=== PATIENT | male | born 1965 | race Caucasian/White ===

== ENCOUNTER 2021-02-03 10:11 | Outpatient (CLI) | payer BC, SELFPAY ==
--- NOTE | 2021-02-03 09:15 | DI.RAD_ITS ---
Exam(s) XR KNEE LT 1V XR STANDING ALIGNMENT XR KNEE RT 1V EXAM: XR STANDING ALIGNMENT and XR knee bilateral 1 V CLINICAL HISTORY: preop. TECHNIQUE: 2D digital imaging was performed. COMPARISON: No previous for comparison. FINDINGS: The hips are well maintained. In the right knee, there is mild narrowing of the medial femoral tibia l joint space. Mild periarticular spurring is seen in the medial femoral tibial joint and the patell ofemoral joint. There does appear to be a small right knee joint effusion. In the left knee, modera te joint space narrowing is seen in the medial femoral tibial joint. There is a small enthesophyte a t the superior patella. No joint effusion is seen on the left knee. The ankles are well maintained. The right lower extremity measures 102.6 cm. The left lower extremity measures 103 cm. IMPRESSION: Bilateral osteoarthritis of the knees. DATA REPOSITORY: RADIATION DOSE DELIVERED:
== END 2021-02-03 10:12 | disposition home or self-care (01) ==
LOC: DIORS 10:11
PROVIDERS: Visit Provider Physician Assistant Surgical
DX: M17.0 Bilateral primary osteoarthritis of knee (principal); M25.461 Effusion, right knee
CPT/HCPCS: 73560; 77073

== ENCOUNTER 2021-02-04 18:31 | Emergency (ER) | payer BC, SELFPAY ==
[2021-02-04] VITALS (46 sets, daily range): BP systolic 115–140; BP diastolic 78–100; PULSE 80–183; RESP 11–27; TEMP 37; O2SAT 92–100
--- NOTE | 2021-02-04 18:30 | RT.EKG_ITS ---
APPROVED REPORT Exam: Resting ECG Reason for Exam: chest pain Patient Location: E HR:175 bpm ECG Measurements Heart Rate 175 AXIS MI [id number] P 0 QRSd 116 QRS -35 QT 271 T 56 QTc 462 Conclusion Supraventricular tachycardia...V-rate>(220-age), QRSd<120 Nonspecific intraventricular conduction delay...QRSd >115mS, not LBBB/RBBB SVT. No STEMI. I have reviewed and interpreted ECG and agree with software generated interpretation.
--- NOTE | 2021-02-04 18:35 | ED.GENADUL_ITS ---
Discharge Plan Disposition Patient Disposition: HOME Condition: Stable Discharge Details Clinical Impression: SVT (supraventricular tachycardia) Primary Care Provider: None,None ED Provider: Guy Alvarez Meds and New Rx's Prescriptions: New metoprolol succinate 25 mg tablet extended release 24 hr 25 mg PO DAILY Qty: 30 RF: 0 Continued prasugrel 10 mg Tablet 10 mg PO DAILY RF: 0 aspirin 81 mg Tablet,Delayed Release (Dr/Ec) 81 mg PO DAILY RF: 0 pantoprazole 40 mg Tablet,Delayed Release (Dr/Ec) 40 mg PO DAILY RF: 0 Discharge Instructions Additional Instructions: Your case was discussed with cardiology at [facility] and your EKGs reviewed by them. It is not felt that you require admission at this time but that you will need follow-up with cardiology in the next 1 to 2 weeks. Please schedule this appointment with the configuration engineer your has established for you. Continue previous medication and start taking metoprolol to try to prevent further episodes of SVT. Return to ED for recurrent episodes that do not terminate relatively quickly, chest pain, shortness of breath, other concerns. Medical Decision Making <Marilynn Akers DO - Last Filed: 02/04/21 20:10> 1855 -- 55-year-old male with a history of coronary artery disease, coronary stent placement on prasugrel presents for chest pain with radiation down his right arm and dizziness since 2 PM today. Heart rate 170s on arrival. EKG consistent with SVT but no STEMI. Patient was given 1 dose of adenosine 6 mg IV x1 with heart rate decreased down to 150s but then back up to 170s. He converted to sinus rhythm with heart rate in the 100s after dose of adenosine 12 mg IV x1. Blood pressure remained stable throughout adenosine administration. Patient tolerated adenosine well. Screening labs on arrival. Troponin negative. Chest x-ray no obvious acute disease. As patient complained of chest pain for the past 4 hours with history of coronary artery disease, will plan for delta troponin and EKG. 1999 --Case endorsed to Dr. Alvarez to follow-up on repeat troponin and EKG and final disposition. Medical Records Medical records reviewed: Yes I reviewed the patient's medical records. Lab Data Lab results reviewed: Yes I reviewed the patient's lab results. Labs: Laboratory Tests Range/Units 02/04/21 02/04/21 18:40 18:40 WBC (4.4-10.8) 10^3/uL 11.21 H RBC (4.36-5.78) 10^6/uL 4.66 Hgb (13.5-17.5) g/dL 15.7 Hct (40.0-50.0) % 46.8 MCV (80-95) fL 100.4 H MCH (27.0-33.0) pg 33.7 H MCHC (32.0-36.0) % 33.5 RDW (11.8-14.1) % 13.4 Plt Count (130-400) 10^3/uL 229 MPV (8.0-11.0) fL 9.5 Immature Gran % 0.6 Neutrophils % 63.9 Lymphocytes % 24.6 Monocytes % 7.9 Eosinophils % 1.8 Basophils % 1.2 Nucleated RBC % % 0 Absolute Neutrophils (1.2-6.7) 10^3/uL 7.16 H Absolute Lymphocytes (1.2-3.4) 10^3/uL 2.76 Absolute Monocytes (0.1-0.8) 10^3/uL 0.89 H Absolute Eosinophils (0.0-0.7) 10^3/uL 0.20 Absolute Basophils (0.0-0.2) 10^3/uL 0.13 Sodium (136-145) mmol/L 139 Potassium (3.5-5.1) mmol/L 4.4 Chloride (98-107) mmol/L 100 Carbon Dioxide (21.0-32.0) mmol/L 31.5 Anion Gap (3-11) mmol/L 7.5 BUN (7-18) mg/dL 19 H Creatinine (0.70-1.30) mg/dL 1.6 H Estimated GFR/1.73 m2 (mL/min/1.73m2) 44.78 Glucose (74-106) mg/dL 138 H Calcium (8.5-10.1) mg/dL 9.9 Magnesium (1.8-2.4) mg/dL 2.0 Total Bilirubin (0.2-1.0) mg/dL 1.0 AST (15-37) U/L 81 H ALT (16-63) U/L 156 H Alkaline Phosphatase (46-116) U/L 83 Troponin I (<0.06) ng/mL < 0.05 Total Protein (6.4-8.2) g/dL 8.3 H Albumin (3.4-5.0) g/dL 4.0 ECG Data Attestation: I personally reviewed and interpreted this ECG (s) as follows: Interpretation: #1 -- rate of 175, SVT, no STEMI. #2 --Rate of 100, sinus, no STEMI. <Guy Alvarez MD - Last Filed: 02/05/21 01:14> Patient signed out to me pending repeat EKG and troponin as well as follow-up on TSH and D-dimer. He had presented earlier in the evening with prolonged SVT and associated chest pain shortness of breath. Please see Dr. Akers's note for initial presentation and management. Patient has had no recurrent symptoms while here. His D-dimer was negative. TSH slightly elevated but free T4 normal. Repeat EKG unchanged from EKG done earlier today once converted from SVT. Second troponin is elevated to 0.22 but is still considered negative. EKG was fax[facility] to [facility]. I spoke directly to cardiology regarding the patient. EKG were reviewed, patient history reviewed, laboratory studies reviewed. It was felt that the slight elevation in troponin was likely demand ischemia in NSTEMI. Patient was not felt to require admission or trending of enzymes. Was recommended to start on metoprolol. Will need follow-up with cardiology in 1 to 2 weeks. I discussed all this with the patient who reports that his has set him up both with primary care and with cardiology but he has not seen them yet. He understands need to be seen cardiology. We discussed Valsalva maneuvers but that if they do not work and he has persistent symptoms related to SVT or any further episodes of chest pain, shortness of breath he should return to ER. Lab Data Lab results reviewed: Yes I reviewed the patient's lab results. ECG Data Attestation: I personally reviewed and interpreted this ECG (s) as follows: Prior ECG tracings: available for review Interpretation: see EKG HPI <Marilynn Akers DO - Last Filed: 02/04/21 20:10> General Mode of arrival: ambulatory . Date/Time Provider Initiated Documentation: 02/04/21 18:32 . Limitations to Documentation: no limitations . Information obtained by: patient . HPI Narrative: Patient is a 55-year-old male with history of coronary artery disease with coronary stent placement in July 2020 presents for chest pain with radiation down his right arm and dizziness since 2 PM today. Patient states he was sitting in his car when his symptoms started. He states the pain has been constant since onset. He denies any fever, cough, palpitations, shortness of breath, nausea or vomiting. Patient denies any known history of SVT. He states he does drink excessive beer daily but denies any alcohol or drug use today. He also denies any recent illness or new xlwy-tso-[id number] medication use. Related Data Home Medications Medication Instructions Recorded Confirmed aspirin 81 mg PO DAILY 02/04/21 02/04/21 pantoprazole 40 mg PO DAILY 02/04/21 02/04/21 prasugrel 10 mg PO DAILY 02/04/21 02/04/21 metoprolol succinate 25 mg PO DAILY #30 tab 02/05/21 Previous Rx's Medication Instructions Recorded metoprolol succinate 25 mg PO DAILY #30 tab 02/05/21 Allergies Allergy/AdvReac Type Severity Reaction Status Date / Time No Known Allergies Allergy Verified 02/03/21 09:09 Review of Systems <Marilynn Akers DO - Last Filed: 02/04/21 20:10> All systems reviewed & are unremarkable except as noted in HPI and below Constitutional Constitutional: Reports as per HPI, Denies chills and Denies fever(s) Eyes Eyes: Denies blurry vision ENT Ears, Nose, Mouth, and Throat: Reports dizziness, Denies sore throat and Denies throat swelling Cardiovascular Cardiovascular: Reports chest pain and Denies dyspnea Respiratory Respiratory: Denies cough and Denies dyspnea Gastrointestinal Gastrointestinal: Denies abdominal pain, Denies diarrhea and Denies vomiting Genitourinary Genitourinary: Denies hematuria and Denies dysuria Musculoskeletal Musculoskeletal: Denies back pain and Denies numbness Integumentary/Breasts Skin/Breast: Denies lesions and Denies rash Neurologic Neurologic: Reports dizziness, Denies localized weakness and Denies numbness Allergic/Immunologic Allergic/Immunologic: Denies throat swelling PFSH <Marilynn Akers DO - Last Filed: 02/04/21 20:10> Medical History (Updated 02/04/21 @ 20:10 by Marilynn Akers DO) Coronary artery disease Surgical History (Updated 02/04/21 @ 18:38 by Marilynn Akers DO) History of coronary artery stent placement RCA -- 07/2020 Social History Smoking/Tobacco Use Status: Never Smoking risk assessment performed?: Yes Alcohol Intake: current Alcohol Intake frequency: 0-2 drinks per day Alcohol type: beer and hard liquor Substance use type: does not use Do you feel safe at home: Yes Do you feel safe in your relationship?: Yes Exam <Marilynn Akers DO - Last Filed: 02/04/21 20:10> Const General: cooperative, healthy appearing and no acute distress HENMT Head: normal to inspection Face and sinus: normal facial exam Eyes General: appearance normal, both eyes and all related structures EOM: EOM intact bilaterally Neck Neck: normal visual inspection and No submandibular swelling Lymphatic: no lymphadenopathy noted Chest Chest: normal inspection of the chest and no tenderness Resp Effort & Inspection: normal respiratory effort and able to speak in complete sentences Auscultation: clear to auscultation bilaterally Cardio Rate: tachycardic Rhythm: regular rhythm GI Inspection: normal to inspection Palpation: soft, not firm, not rigid and nontender Auscultation: normal bowel sounds Skin General skin exam: no rashes or lesions noted Neuro General: patient alert, patient awake and patient oriented x3 Cognition: normal cognition Speech: speech normal Motor: muscle tone normal throughout Sensory Exam: no sensory deficits noted Extrem General: normal to inspection, full ROM, capillary refill normal, no calf tenderness bilaterally and no edema Psych Appearance: grossly normal Mental Status: mental status grossly normal Speech and Movement: speech and movement normal Affect: normal affect Sign Out <Marilynn Akers DO - Last Filed: 02/04/21 20:10> Sign Out Data: Sign Out Comment: SVT on EKG on arrival. This converted to sinus after second dose of adenosine. Troponin negative. Follow-up on d-dimer, tsh, repeat troponin and repeat EKG. If patient remains improved, and work-up negative, can likely discharge home with plan for follow-up with PCP and cardiology. Last updated by Marilynn Akers DO at 02/04/21 20:21
--- NOTE | 2021-02-04 18:45 | RT.EKG_ITS ---
APPROVED REPORT Exam: Resting ECG Reason for Exam: chest pain Patient Location: E HR:100 bpm ECG Measurements Heart Rate 100 AXIS LA 164 P 56 QRSd 97 QRS -17 QT 340 T 35 QTc 440 Conclusion Sinus tachycardia...rate> 99. Sinus. No STEMI. I have reviewed and interpreted ECG and agree with software generated interpretation.
--- NOTE | 2021-02-04 18:45 | DI.RAD_ITS ---
Exam(s) XR PORTABLE CHEST AP EXAM: XR PORTABLE CHEST AP CLINICAL HISTORY: svt, r/o acute disease. TECHNIQUE: 2D digital imaging was performed. COMPARISON: No exams were available for comparison FINDINGS: The chest leads in place and a left-sided cardiac pad. The mediastinum is not widened. Heart size is normal. No pulmonary infiltrates nor pleural effusions. No pulmonary edema. No pneum othorax. IMPRESSION: No acute pulmonary findings on this single AP portable view of the chest.Heart size normal. Chest leads and chest pads in place. DATA REPOSITORY: RADIATION DOSE DELIVERED: All CT scans at this facility use at least one of these dose optimization techniques: automated exposure control; mA and/or kV adjustment per patient size (includes targeted e xams where dose is matched to clinical indication); or iterative reconstruction.
[2021-02-04 18:47] LABS: Abs Immature Grans 0.07 10^3/uL (0.0-0.06); Absolute Basophil Count 0.13 10^3/uL (0.0-0.2); Absolute Lymphocyte Count 2.76 10^3/uL (1.2-3.4); Absolute Monocyte Count 0.89 10^3/uL (0.1-0.8); Absolute Neutrophil Count 7.16 10^3/uL (1.2-6.7); Basophils % 1.2; Eosinophils % 1.8; HCT 46.8 % (40.0-50.0); HGB 15.7 g/dL (13.5-17.5); Immature Grans % 0.6; Lymphocytes % 24.6; MCH 33.7 pg (27.0-33.0); MCHC 33.5 % (32.0-36.0); MCV 100.4 fL (80-95); MPV 9.5 fL (8.0-11.0); Monocytes % 7.9; Neutrophils % 63.9; Nucleated RBC 0 %; Platelet Count 229 10^3/uL (130-400); RBC 4.66 10^6/uL (4.36-5.78); RDW 13.4 % (11.8-14.1); RDW-SD 49.3 fL; WBC 11.21 10^3/uL (4.4-10.8)
[2021-02-04 19:06] LABS: ALT 156 U/L (16-63); AST 81 U/L (15-37); Alkaline Phosphatase 83 U/L (46-116); Anion Gap 7.5 mmol/L (3-11); BUN 19 mg/dL (7-18); CO2 31.5 mmol/L (21.0-32.0); CREATININE 1.6 mg/dL (0.70-1.30); Calcium 9.9 mg/dL (8.5-10.1); Chloride 100 mmol/L (98-107); Estimated GFR 44.78 (mL/min/1.73m2); Glucose 138 mg/dL (74-106); Potassium 4.4 mmol/L (3.5-5.1); Sodium 139 mmol/L (136-145); Total Protein 8.3 g/dL (6.4-8.2); Troponin I < 0.05 ng/mL (<0.06)
--- NOTE | 2021-02-04 19:30 | RT.EKG_ITS ---
APPROVED REPORT Exam: Resting ECG Reason for Exam: chest pain Patient Location: E HR:80 bpm ECG Measurements Heart Rate 80 AXIS OK 157 P 50 QRSd 102 QRS -15 QT 380 T 7 QTc 439 Conclusion Sinus rhythm...normal P axis, V-rate 60- [address]-T changes inferior There are no significant changes compared to prior EKG performed on 02/04/2021 at 18:59.
--- NOTE | 2021-02-04 21:06 | DI.VRAD_ITS ---
PROCEDURE INFORMATION: Exam: XR Chest Exam date and time: 02/04/2021 6:57 PM Age: 55 years old Clinical indication: Other: Svt, R/O acute disease TECHNIQUE: Imaging protocol: XR of the chest. Views: 1 view. COMPARISON: No relevant prior studies available. FINDINGS: Lungs: Unremarkable. No consolidation. Pleural spaces: Unremarkable. No pleural effusion. No pneumothorax. Heart/Mediastinum: Unremarkable. No cardiomegaly. Bones/joints: Unremarkable. Other findings: Equipment overlies the chest. IMPRESSION: No acute cardiopulmonary disease Dictated and Authenticated by: Kj Conde MD. Ordering:MURALI Subramanian MD
--- NOTE | 2021-02-04 21:57 | NUR.NOTE ---
Lab called to process additional ordersNursing Note:
[2021-02-04 22:27] LABS: TSH (W/Ref FT4) 5.87 uIU/mL (0.36-3.74)
[2021-02-04 22:37] LABS: D-Dimer 337 ng/mlFEU (<500)
[2021-02-04 22:44] LABS: FREE T4 0.93 ng/dL (0.76-1.46)
--- NOTE | 2021-02-04 22:52 | NUR.NOTE ---
Critical troponin result called by lab; 0.22. notified.Nursing Note:
[2021-02-04 22:53] LABS: Troponin I 0.22 ng/mL (<0.06)
[2021-02-05] VITALS (10 sets, daily range): BP systolic 136–149; BP diastolic 83–94; PULSE 80–86; RESP 10–20; O2SAT 96–98
== END 2021-02-05 00:59 | disposition home or self-care (01) ==
PROVIDERS: Physician Assistant; Emergency Provider Emergency Medicine
DX: I47.1 Supraventricular tachycardia (principal); R42 Dizziness and giddiness; R06.02 Shortness of breath; I25.10 Atherosclerotic heart disease of native coronary artery without angina pectoris; Z95.5 Presence of coronary angioplasty implant and graft
CPT/HCPCS: 36415; 80053; 93005; 96374; 99285; 71045; 83735; 84439; 84443; 84484; 85025; 85379; 93010

== ENCOUNTER 2021-02-23 13:42 | Outpatient (CLI) | payer BC, SELFPAY ==
--- NOTE | 2021-02-23 13:30 | RT.EKG_ITS ---
APPROVED REPORT Exam: Resting ECG Reason for Exam: cad Patient Location: O HR:66 bpm ECG Measurements Heart Rate 66 AXIS NJ 149 P 35 QRSd 127 QRS -24 QT 378 T 21 QTc 396 Conclusion Sinus rhythm...normal P axis, V-rate 50- 99 Nonspecific intraventricular conduction delay...QRSd >115mS, not LBBB/RBBB
== END 2021-02-23 13:43 | disposition home or self-care (01) ==
LOC: DI.CARD 13:42
PROVIDERS: Visit Provider Internal Medicine Cardiovascular Disease
DX: I25.10 Atherosclerotic heart disease of native coronary artery without angina pectoris (principal)
CPT/HCPCS: 93010

== ENCOUNTER 2021-04-07 00:37 | Outpatient (CLI) | payer BC, SELFPAY ==
--- NOTE | 2021-04-07 | DI.MRI_ITS ---
Exam(s) MR LUMBAR SPINE WO EXAM: MR LUMBAR SPINE WO CLINICAL HISTORY: DEGENERATIVE DISC DISEASE,M51.36,WORSENING LOW BACK PAIN. TECHNIQUE: Multiplanar multisequence MRI of the Lumbar spine was performed. COMPARISON: CR,XR XR PORTABLE CHEST AP from 02/04/2021 FINDINGS: Bones: The last intervertebral disc space is designated the L5/S1 level for the numbering purpose of this examination. The vertebral body heights are well maintained. Schmorl's nodes at multiple level s. Degenerative signal changes are seen in the endplates. No suspicious lesions. Cord: The conus tip ends at the T12 level. It is of normal size and signal intensity. T12-L1: No disc herniations or bulges are present. No central spinal canal or neural foraminal stenos is. L1-2: No disc herniations or bulges are present. No central spinal canal or neural foraminal stenosis . L2-3: Qccb-nq-bhjluhxy loss of disc height, greater on the left side. Small endplate osteophytes and broad-based disc bulging, eccentric toward the left. This causes severe left neural foraminal narro wing combination with mild facet joint degenerative changes. No significant central canal stenosis. L3-4: Broad-based disc bulging and small endplate osteophytes, slightly eccentric toward the left. M oderate neural foraminal narrowing. Mild facet joint degenerative changes. No significant central c anal stenosis. L4-5: Mild loss of disc height eccentric toward the right. Endplate osteophytes and broad-based disc bulging. Severe bilateral neural foraminal narrowing, greater on the right. Hrzl-yw-pbbkpjpe facet degenerative changes. Rnzy-kr-ntzghtrf central canal stenosis. L5-S1: Moderate to severe loss disc height. Small endplate osteophytes. Broad-based central disc bu lging. Apparent impingement on bilateral S1 nerve roots. Mild facet degenerative changes. Severe b ilateral neural foraminal narrowing. Soft tissues: The visualized SI joints and sacrum are well maintained. The paraspinal soft tissues ar e unremarkable. IMPRESSION: Multilevel degenerative disc changes and facet degenerative changes causing severe neural foraminal n arrowing and mild central canal stenosis, as described above. Central disc bulging at L5-S1 appears to impinge on both S1 nerve roots. DATA REPOSITORY:
== END 2021-04-07 00:57 ==
PROVIDERS: Visit Provider Family Medicine
DX: M47.816 Spondylosis without myelopathy or radiculopathy, lumbar region; M48.061 Spinal stenosis, lumbar region without neurogenic claudication; M51.27 Other intervertebral disc displacement, lumbosacral region
CPT/HCPCS: 72148

== ENCOUNTER 2021-04-10 02:01 | Outpatient (CLI) | payer BC, SELFPAY ==
[2021-04-10 10:59] LABS: Source Nasal/Nares
[2021-04-10 13:34] LABS: COVID-19 PCR Negative (Negative)
== END 2021-04-10 02:02 | disposition home or self-care (01) ==
LOC: LBO 02:02
PROVIDERS: Visit Provider Student in an Organized Health Care Education/Training Program
DX: Z20.822 Contact with and (suspected) exposure to COVID-19 (principal)
CPT/HCPCS: 87635

== ENCOUNTER 2021-04-10 02:44 | Outpatient (CLI) | payer BC, SELFPAY ==
[2021-04-10 09:36] LABS: HCT 45.5 % (40.0-50.0); HGB 15.5 g/dL (13.5-17.5); MCH 34.4 pg (27.0-33.0); MCHC 34.1 % (32.0-36.0); MCV 100.9 fL (80-95); MPV 9.8 fL (8.0-11.0); Platelet Count 197 10^3/uL (130-400); RBC 4.51 10^6/uL (4.36-5.78); RDW 12.6 % (11.8-14.1); RDW-SD 47.6 fL; WBC 5.36 10^3/uL (4.4-10.8)
[2021-04-10 10:19] LABS: Anion Gap 6.4 mmol/L (3-11); BUN 13 mg/dL (7-18); CO2 30.6 mmol/L (21.0-32.0); CREATININE 0.9 mg/dL (0.70-1.30); Chloride 101 mmol/L (98-107); Glucose 105 mg/dL (74-106); Sodium 138 mmol/L (136-145)
== END 2021-04-10 02:45 | disposition home or self-care (01) ==
LOC: LBO 02:44
PROVIDERS: Visit Provider Student in an Organized Health Care Education/Training Program
DX: M17.11 Unilateral primary osteoarthritis, right knee (principal); M17.12 Unilateral primary osteoarthritis, left knee; Z01.818 Encounter for other preprocedural examination
CPT/HCPCS: 36415; 80048; 85027

== ENCOUNTER 2021-04-12 07:37 | Outpatient (CLI) | payer BC, SELFPAY ==
--- NOTE | 2021-04-12 09:15 | RT.EKG_ITS ---
APPROVED REPORT Exam: Resting ECG Reason for Exam: PRE OP Patient Location: O HR:64 bpm ECG Measurements Heart Rate 64 AXIS HI 160 P 45 QRSd 115 QRS -20 QT 505 T -48 QTc 516 Conclusion Sinus rhythm...normal P axis, V-rate 60- 99 Artifact Incomplete right bundle branch block
== END 2021-04-12 07:38 | disposition home or self-care (01) ==
LOC: RT 07:49
PROVIDERS: Visit Provider Physician Assistant
DX: Z01.810 Encounter for preprocedural cardiovascular examination (principal); I45.19 Other right bundle-branch block
CPT/HCPCS: 93005; 93010

== ENCOUNTER 2021-04-12 09:07 | Observation (INO) | payer BC, SELFPAY ==
[2021-04-12] VITALS (12 sets, daily range): BP systolic 88–157; BP diastolic 56–101; PULSE 22–76; RESP 13–21; TEMP 36.2–36.6; TEMPC 36; O2SAT 95–100; BMI 27.9
--- NOTE | 2021-04-12 09:27 | W.PM.DS.N ---
Documented by User: Loretta Haquexon 04/12/21 09:32 DS: Diagnosis Discharge Diagnosis (1) Osteoarthritis of left knee: Status: Chronic (2) Osteoarthritis of right knee: Status: Chronic Discharge Plan Disposition Patient Disposition: HOME Condition: Good Discharge Details Reason For Visit: Bilateral knee DJD Admit Date/Time: 04/12/21 09:07 Admit Provider: Mendel Starr Attending Provider: Mendel Starr Primary Care Provider: None,None Hospital Course Hospital Course: Patient was admitted to the medical/surgical floor following the procedure. The surgery was tolerated well without any notable medical, surgical, or anesthetic complications. Mobilization began postoperatively. He was voiding spontaneously. Vitals were stable. Physical therapy worked with the patient and was cleared for discharge home. No acute medical issues. Pain was controlled on oral regimen. Home Meds and New Rx's Prescriptions: New celecoxib [Celebrex] 200 mg capsule 200 mg PO BID Qty: 30 RF: 0 acetaminophen 500 mg tablet 1,000 mg PO Q8H PRN Qty: 90 RF: 0 docusate sodium [Colace] 100 mg capsule 100 mg PO BID Qty: 30 RF: 0 gabapentin 300 mg capsule 300 mg PO QHS Qty: 14 RF: 0 oxycodone 5 mg tablet 5 mg PO Q4H PRN (Reason: severe post-operative pain) Qty: 18 RF: 0 Continued metoprolol succinate 25 mg tablet extended release 24 hr 50 mg PO DAILY RF: 0 amlodipine 5 mg tablet 5 mg PO DAILY RF: 0 clopidogrel 75 mg tablet 75 mg PO DAILY Qty: 90 RF: 1 sildenafil 50 mg tablet 50 mg PO DAILY RF: 0 pantoprazole 40 mg Tablet,Delayed Release (Dr/Ec) 40 mg PO DAILY Qty: 30 RF: 2 aspirin 81 mg Tablet,Delayed Release (Dr/Ec) 81 mg PO DAILY RF: 0 Discharge Instructions Additional Instructions: Total Knee Discharge Instructions Activity: The most important activity is to walk. You should try to take short walks a few times a day. It is important that when resting you work on keeping the knee straight. Avoid putting a pillow behind the knee as this will encourage flexion. Work on range of motion exercises as provided by Physical Therapy. If you have the [employer] bike coming, this will be your primary tool for exercise after the knee replacement. You should use it and follow the directions for the knee. Utilize the other exercises sparingly based on your symptoms. - Start outpatient physical therapy within 2 weeks. - You should wear the ROMERO hose on both legs for 2 weeks. You may remove these at night. You may also use any compression sock in place of the ROMERO hose. - Utilize [employer] to review exercises, see videos on exercises and obtain basic information pertaining to your surgery and your recovery. Dressing: Remove the Slick wrap by 2 days after your surgery and put on the ROMERO stocking given to you from the hospital. Keep the surgical dressing (underneath the SLICK wrap) in place for at least one week. After the first week it may be removed and replaced with light gauze and tape or nothing. The wound and dressing may get wet after 3 days but avoid soaking the dressing or otherwise it will need to be changed. Many people prefer covering the dressing with cling wrap (saran wrap) to minimize it from getting soaked. If it gets wet, just pat dry. If it starts to peel off then it will need to be changed. Medications: - You should take Tylenol and anti-inflammatory Celebrex as your primary pain control medications. If the Celebrex is too expensive or not covered, please call the office for another alternative (Advil/Ibuprofen or Naproxen/Aleve) - You have been prescribed a stronger pain medication Oxycodone for breakthrough pain, take as needed as prescribed. - You normally take pantoprozole - will continue with this medication to help reduce stomach acid and reflux. - You have been prescribed Gabapentin to take at night for restlessness and nerve pain. - You will resume your normal anticoagulation of Aspirin 81 mg daily as well as Clopidogrel 75 mg daily as recommended by your linen supply load builder. - If you have constipation you should take Colace (which has been prescribed) or Miralax (which you may purchase [id number]). It takes most people 3-4 days to have a bowel movement. Follow-up: 2 weeks If you have any acute concerns or questions, please do not hesitate to contact the office at [phone]. You may contact Dr. Starr with any questions after hours through the hospital at [phone] or on his cell phone at [phone]. Referrals: Mendel Starr MD [ [facility]FF [facility]YSICIAN] - Activity:: Activity as Tolerated Equipment/Supplies:: Walker Diet:: As Tolerated Discharge Orders Discharge Orders: Discharge Order (Routine); Ordered 04/12/21 Ordered By: Mendel Starr DS: Data Vitals/I&O Vitals and I&O: Vital Signs Respiratory Effort 04/11/21 08:16 Intake & Output 04/11/21 04/11/21 04/12/21 11:59 23:59 11:59 Weight 94.801 kg [facility] Active Problem List Osteoarthritis of left knee (Chronic) Osteoarthritis of right knee (Chronic) SVT (supraventricular tachycardia) (Chronic) Hypertension (Chronic) Medical History Atherosclerotic heart disease of [place] coronary artery without angina pectoris Coronary artery disease PCI with FÉLIX to RCA 07/19/2020 [facility] Erectile dysfunction Family history of ischemic heart disease GERD (gastroesophageal reflux disease) Shortness of breath Surgical History History of coronary artery stent placement RCA -- 07/19/2020 History of heart artery stent 07/2020 Hx of elbow surgery Right lateral epicondyle debridement 2009 Family History Mother Scleroderma Maternal Grandfather Myocardial infarction Uncle Myocardial infarction Uncle Myocardial infarction Social History Smoking/Tobacco Use Status: Never Smoking risk assessment performed?: Yes Alcohol Intake: current Alcohol Intake frequency: 0-2 drinks per day Alcohol type: beer and hard liquor Drug use: Never Substance use type: does not use Household members: spouse current occupation: travels for work to [place] [employer] Current gender identity: male Do you feel safe at home: Yes Do you feel safe in your relationship?: Yes Documented by User: Mendel Starr MD 04/12/21 16:01 Date of service: 04/12/21 Time of Service: 16:00 Discharge Plan Disposition Patient Disposition: HOME Condition: Good Discharge Details Reason For Visit: Bilateral knee DJD Admit Date/Time: 04/12/21 09:07 Admit Provider: Mendel Starr Attending Provider: Mendel Starr Primary Care Provider: None,None Hospital Course Hospital Course: Patient was admitted to the medical/surgical floor following the procedure. The surgery was tolerated well without any notable medical, surgical, or anesthetic complications. Mobilization began postoperatively. He was voiding spontaneously. Vitals were stable. Physical therapy worked with the patient and was cleared for discharge home. No acute medical issues. Pain was controlled on oral regimen. Home Meds and New Rx's Prescriptions: New celecoxib [Celebrex] 200 mg capsule 200 mg PO BID Qty: 30 RF: 0 acetaminophen 500 mg tablet 1,000 mg PO Q8H PRN Qty: 90 RF: 0 docusate sodium [Colace] 100 mg capsule 100 mg PO BID Qty: 30 RF: 0 gabapentin 300 mg capsule 300 mg PO QHS Qty: 14 RF: 0 oxycodone 5 mg tablet 5 mg PO Q4H PRN (Reason: severe post-operative pain) Qty: 18 RF: 0 Continued metoprolol succinate 25 mg tablet extended release 24 hr 50 mg PO DAILY RF: 0 amlodipine 5 mg tablet 5 mg PO DAILY RF: 0 clopidogrel 75 mg tablet 75 mg PO DAILY Qty: 90 RF: 1 sildenafil 50 mg tablet 50 mg PO DAILY RF: 0 pantoprazole 40 mg Tablet,Delayed Release (Dr/Ec) 40 mg PO DAILY Qty: 30 RF: 2 aspirin 81 mg Tablet,Delayed Release (Dr/Ec) 81 mg PO DAILY RF: 0 Discharge Instructions Additional Instructions: Total Knee Discharge Instructions Activity: The most important activity is to walk. You should try to take short walks a few times a day. It is important that when resting you work on keeping the knee straight. Avoid putting a pillow behind the knee as this will encourage flexion. Work on range of motion exercises as provided by Physical Therapy. If you have the [employer] bike coming, this will be your primary tool for exercise after the knee replacement. You should use it and follow the directions for the knee. Utilize the other exercises sparingly based on your symptoms. - Start outpatient physical therapy within 2 weeks. - You should wear the ROMERO hose on both legs for 2 weeks. You may remove these at night. You may also use any compression sock in place of the ROMERO hose. - Utilize [employer] to review exercises, see videos on exercises and obtain basic information pertaining to your surgery and your recovery. Dressing: Remove the Slick wrap by 2 days after your surgery and put on the ROMERO stocking given to you from the hospital. Keep the surgical dressing (underneath the SLICK wrap) in place for at least one week. After the first week it may be removed and replaced with light gauze and tape or nothing. The wound and dressing may get wet after 3 days but avoid soaking the dressing or otherwise it will need to be changed. Many people prefer covering the dressing with cling wrap (saran wrap) to minimize it from getting soaked. If it gets wet, just pat dry. If it starts to peel off then it will need to be changed. Medications: - You should take Tylenol and anti-inflammatory Celebrex as your primary pain control medications. If the Celebrex is too expensive or not covered, please call the office for another alternative (Advil/Ibuprofen or Naproxen/Aleve) - You have been prescribed a stronger pain medication Oxycodone for breakthrough pain, take as needed as prescribed. - You normally take pantoprozole - will continue with this medication to help reduce stomach acid and reflux. - You have been prescribed Gabapentin to take at night for restlessness and nerve pain. - You will resume your normal anticoagulation of Aspirin 81 mg daily as well as Clopidogrel 75 mg daily as recommended by your linen supply load builder. - If you have constipation you should take Colace (which has been prescribed) or Miralax (which you may purchase [id number]). It takes most people 3-4 days to have a bowel movement. Follow-up: 2 weeks If you have any acute concerns or questions, please do not hesitate to contact the office at [phone]. You may contact Dr. Starr with any questions after hours through the hospital at [phone] or on his cell phone at [phone]. Referrals: Mendel Starr MD [ [facility] ST[facility]FF PHYSICIAN] - Activity:: Activity as Tolerated Equipment/Supplies:: Walker Diet:: As Tolerated Discharge Orders Discharge Orders: Discharge Order (Routine); Ordered 04/12/21 Ordered By: Mendel Starr DS: Summary Time Spent with Patient providing and/or coordinating discharge services: Less than 30 minutes Status at Discharge Functional status at discharge: uses cane/walker Overall status at discharge: patient is progressing back to baseline Mental Status: mental status grossly normal Speech and Movement: speech and movement normal Mood: congruent mood Affect: normal affect Exam Psych Mental Status: mental status grossly normal Speech and Movement: speech and movement normal Mood: congruent mood Affect: normal affect [facility] Active Problem List Osteoarthritis of left knee (Chronic) Osteoarthritis of right knee (Chronic) SVT (supraventricular tachycardia) (Chronic) Hypertension (Chronic) Medical History Atherosclerotic heart disease of [place] coronary artery without angina pectoris Coronary artery disease PCI with FÉLIX to RCA 07/19/2020 [facility] Erectile dysfunction Family history of ischemic heart disease GERD (gastroesophageal reflux disease) Shortness of breath Surgical History History of coronary artery stent placement RCA -- 07/19/2020 History of heart artery stent 07/2020 Hx of elbow surgery Right lateral epicondyle debridement 2009 Family History Mother Scleroderma Maternal Grandfather Myocardial infarction Uncle Myocardial infarction Uncle Myocardial infarction Social History Smoking/Tobacco Use Status: Never Smoking risk assessment performed?: Yes Alcohol Intake: current Alcohol Intake frequency: 0-2 drinks per day Alcohol type: beer and hard liquor Drug use: Never Substance use type: does not use Household members: spouse current occupation: travels for work to [employer] Current gender identity: male Do you feel safe at home: Yes Do you feel safe in your relationship?: Yes
[2021-04-12] MEDS: Celecoxib 200 MG CAP 400 MG PO (09:52)
[2021-04-12] MEDS: Acetaminophen 500 MG TAB 1000 MG PO (09:52)
[2021-04-12] MEDS: Gabapentin 300 MG CAP PO (09:53)
[2021-04-12] MEDS: Lactated Ringers 1,000 ML 80 ML IV (09:55)
--- NOTE | 2021-04-12 10:19 | ANES.PREOP_ITS ---
General Info Date of Service Date Performed: 04/12/21 Height: 6 ft Weight: 93.4 kg Body Mass Index (BMI): 27.9 Surgical Procedure: Operation Date: 04/12/21 13:05 Proposed Procedures Side Surgeon p Knee Total Arthroplasty Bilateral Bilateral Mendel Starr MD Meds Allergies and Home Medications Allergies Allergy/AdvReac Type Severity Reaction Status Date / Time No Known Allergies Allergy Verified 04/12/21 09:49 Home Medication Medication Instructions Recorded aspirin 81 mg PO DAILY 02/04/21 pantoprazole 40 mg PO DAILY 02/04/21 sildenafil 50 mg tablet 50 mg PO DAILY 02/17/21 amlodipine 5 mg tablet 5 mg PO DAILY 02/23/21 clopidogrel 75 mg tablet 75 mg PO DAILY #90 tab 02/23/21 metoprolol succinate 25 mg 50 mg PO DAILY tab 04/04/21 tablet,extended release 24 hr acetaminophen 1,000 mg PO Q8H PRN #90 tab 04/12/21 celecoxib [Celebrex] 200 mg PO BID #30 cap 04/12/21 docusate sodium [Colace] 100 mg PO BID #30 cap 04/12/21 gabapentin 300 mg PO QHS #14 cap 04/12/21 oxycodone 5 mg PO Q4H PRN #18 tab 04/12/21 Current Visit Medications: Current Medications Generic Name Dose Route Start Last Admin Trade Name Freq PRN Reason Stop Dose Admin Acetaminophen 1,000 mg 04/12/21 06:00 04/12/21 09:52 Acetaminophen 500 Mg Tab PO 1,000 mg PREOP MICHAELA Administration Acetaminophen 1,000 mg 04/12/21 14:00 Acetaminophen 500 Mg Tab PO TID MICHAELA Celecoxib 400 mg 04/12/21 06:00 04/12/21 09:52 Celecoxib 200 Mg Cap PO 400 mg PREOP MICHAELA Administration Celecoxib 200 mg 04/12/21 20:00 Celecoxib 200 Mg Cap PO BID MICHAELA Clopidogrel Bisulfate 75 mg 04/13/21 08:30 Clopidogrel 75 Mg Tab PO DAILY MICHAELA Docusate Sodium 100 mg 04/12/21 09:22 Docusate Sodium 100 Mg Cap PO BID PRN PRN Constipation Gabapentin 300 mg 04/12/21 06:00 04/12/21 09:53 Gabapentin 300 Mg Cap PO 300 mg PREOP MICHAELA Administration Gabapentin 300 mg 04/12/21 22:00 Gabapentin 300 Mg Cap PO HS MICHAELA Hydromorphone HCl 0.5 mg 04/12/21 09:22 Hydromorphone 2 Mg/Ml Vial IVP Q2H PRN PRN Tranexamic Acid 1,000 mg/ 60 mls @ 360 mls/hr 04/12/21 06:00 Sodium Chloride IVPB 04/12/21 23:59 PREOP MICHAELA Tranexamic Acid 1,000 mg/ 60 mls @ 360 mls/hr 04/12/21 06:00 Sodium Chloride IVPB 04/12/21 23:59 DIRECTED MICHAELA Ringer's Solution 1,000 mls @ 80 mls/hr 04/12/21 06:00 04/12/21 09:55 IV 05/11/21 23:59 80 mls/hr INFUSION MICHAELA Administration Cefazolin Sodium/Dextrose 2 gm in 50 mls @ 100 mls/hr 04/12/21 06:00 Ancef Duplex IVPB 05/11/21 23:59 PREOP MICHAELA Cefazolin Sodium/Dextrose 1 gm in 50 mls @ 100 mls/hr 04/12/21 12:00 Ancef Duplex IVPB 04/13/21 04:29 Q8H MICHAELA IV Miscellaneous Supplies 1 each 04/12/21 06:00 Iv Access IV 05/11/21 23:59 DIRECTED MICHAELA Oxycodone HCl 0 mg 04/12/21 09:22 Oxycodone 5 Mg Tab PO Q3H PRN PRN Pain Pantoprazole Sodium 40 mg 04/13/21 08:00 Pantoprazole 40 Mg Tabcr PO DAILY@0730 MICHAELA Sodium Chloride 0 ml 04/12/21 06:00 Normal Saline Flush 10 Ml Syr IV 05/11/21 23:59 PRN PRN Sodium Chloride 0 ml 04/12/21 06:00 Normal Saline 10 Ml Vial IJ 05/11/21 23:59 DIRECTED PRN Sterile Water 0 ml 04/12/21 06:00 Water,Injection,Sterile 10 Ml Vial IJ 05/11/21 23:59 DIRECTED PRN PFSH Active Problems Active Problems: Problem Status Onset Code Osteoarthritis of left knee M17.12 Osteoarthritis of right knee M17.11 SVT (supraventricular tachycardia) I47.1 Hypertension I10 Medical History Active Problem List Osteoarthritis of left knee (Chronic) Osteoarthritis of right knee (Chronic) SVT (supraventricular tachycardia) (Chronic) Hypertension (Chronic) Medical History Atherosclerotic heart disease of [place] coronary artery without angina pectoris Coronary artery disease PCI with FÉLIX to RCA 07/19/2020 [facility] Erectile dysfunction Family history of ischemic heart disease GERD (gastroesophageal reflux disease) Shortness of breath Surgical History Surgical History History of coronary artery stent placement RCA -- 07/19/2020 History of heart artery stent 07/2020 Hx of elbow surgery Right lateral epicondyle debridement 2009 Tobacco Smoking/Tobacco Use Status: Never Alcohol Alcohol Intake: current Alcohol intake frequency: 0-2 drinks per day Alcohol type: beer and hard liquor Substance Use Substance use: Never Substance use type: does not use Vital Signs and Lab Results Vital Signs Most Recent Vital Signs in EMR: Most Recent Vital Signs Temp Pulse Resp BP Pulse Ox 36.6 C 66 18 146/98 H 100 04/12/21 09:24 04/12/21 09:24 04/12/21 09:24 04/12/21 09:24 04/12/21 09:24 Lab Results Blood Type / Crossmatch: No Data to Display Complete Blood Count: White Blood Count 5.36 10^3/uL (4.4-10.8) 04/10/21 09:24 04/10/21 Red Blood Count 4.51 10^6/uL (4.36-5.78) 04/10/21 09:24 04/10/21 Hemoglobin 15.5 g/dL (13.5-17.5) 04/10/21 09:24 04/10/21 Hematocrit 45.5 % (40.0-50.0) 04/10/21 09:24 04/10/21 Platelet Count 197 10^3/uL (130-400) 04/10/21 09:24 04/10/21 Complete Metabolic Panel: Sodium Level 138 mmol/L (136-145) 04/10/21 09:24 04/10/21 Potassium Level 4.0 mmol/L (3.5-5.1) 04/10/21 09:24 04/10/21 Chloride Level 101 mmol/L (98-107) 04/10/21 09:24 04/10/21 Carbon Dioxide Level 30.6 mmol/L (21.0-32.0) 04/10/21 09:24 04/10/21 Blood Urea Nitrogen 13 mg/dL (7-18) 04/10/21 09:24 04/10/21 Creatinine 0.9 mg/dL (0.70-1.30) 04/10/21 09:24 04/10/21 Estimated GFR/1.73 m2 >= 60.00 (mL/min/1.73m2) 04/10/21 09:24 04/10/21 Calcium Level 10.0 mg/dL (8.5-10.1) 04/10/21 09:24 04/10/21 Glucose Level 105 mg/dL (74-106) 04/10/21 09:24 04/10/21 Liver Function Panel: No Data to Display Coagulation Panel: No Data to Display Cardiac Panel: No Data to Display Arterial Blood Gas: No Data to Display Venous Blood Gas: No Data to Display Pancreas Panel: No Data to Display Thyroid Panel: No Data to Display Infectious Disease: Coronavirus (COVID-19)(PCR) Negative (Negative) 04/10/21 09:59 04/10/21 Coronavirus 2019 Source Nasal/Nares 04/10/21 09:59 04/10/21 Blood Cultures: No Data to Display Toxicology Panel: No Data to Display Anesthesia Assessment and Plan Anesthesia History Personal History: No History of Anesthesia Complications Family History: No Family History of Anesthesia Complications Exercise Tolerance Exercise Tolerance: Metabolic Equivalents>4 Pertinent Negatives Pertinent Negatives: No Symptoms of GERD (Well controlled with medication eliminated it), No Major Cardiovascular Symptoms or Complaints, No Major Pulmonary Symptoms or Complaints and No History of CVA/TIA Cardiac & Pulmonary Exam Cardiac Exam: Normal S1/S2 Heart Sounds Pulmonary Exam: Clear Bilateral Breath Sounds Implantable Cardiac Device Does patient have a Pacemaker or an ICD?: No Airway Exam Known Difficult Airway: No Mallampati Class: 1 Mouth Opening: Normal (> 3cm) Thyromental Distance: Greater than 3 cm Facial Hair: Full [place] Neck Range of Motion: Full ROM Neck Circumference: Normal Teeth Condition: Normal Dentition Airway Comments: Top front teeth chipped ASA Classification ASA Score: ASA 2 Emergency Case?: No NPO Status NPO Status: NPO Clears >2 hours, Solids >8 hours Anesthesia Plan Resuscitation Status: Full Code Anesthesia Technique: Spinal Anesthesia Airway Planned: Natural Airway Pain Management: Surgeon and patient request nerve block (Bilateral Adductor Canal blocks) Monitors Used: Standard Monitors
--- NOTE | 2021-04-12 11:03 | W.ANESNERVE ---
Nerve Block Single Injection Procedure Date and Time Date Performed: 04/12/21 Procedure Start: 11:03 Location Where Procedure Performed Procedure Location: Day Surgery Unit Reason Performed: Postoperative Analgesia Requesting Provider: Mendel Starr Timeout Performed Timeout Performed: Yes Monitoring Used ECG, Blood Pressure and SpO2 Sterility Sterility: Hand Hygiene, Surgical Cap, Surgical Mask, Sterile Gloves, Eye Protection and Chlorhexidine Sedation Given During Procedure Sedation Given (Indicate Dose Given): No Sedation given Patient Mental Status Patient Mental Status: Awake Nerve Block 1st Nerve Block: Laterality: Bilateral Block Type: Adductor Canal Needle / Catheter Used: 100mm SonoPlex II Local Anesthetic Bolus (Indicate Dose Given): Lidocaine used for local infiltration of skin, Injected in 3-5ml increments after negative blood aspiration, Half of Total block solution given into each side and Bupivacaine 0.25% Dose:: 15cc each side Additives (Indicate Dose Given): None Ultrasound: Sterile probe cover and gel used Ultrasound Image Saved?: Yes Nerve Stimulator: Not Used Paresthesia: None Procedure Tolerated: No Complications and Patient tolerated well Procedure Outcome: Successful Performed By: Harpreet Blanco
[2021-04-12] MEDS: ceFAZolin 2 GM/50 ML BAG IVPB (11:25)
[2021-04-12] MEDS: Bupivacaine 0.25% Pres-Free 30 ML VIAL (14:00)
[2021-04-12] MEDS: Normal Saline 50 ML (14:00)
[2021-04-12] MEDS: Ketorolac 30 MG/ML VIAL (14:00)
--- NOTE | 2021-04-12 14:39 | ROE_ITS ---
Date of service: 04/12/21 Time of Service: 14:39 Operative Note Operative Note DATE OF PROCEDURE: 04/12/21 PRE-OP DIAGNOSIS: Bilateral Knee Osteoarthritis POST-OP DIAGNOSIS: same PROCEDURE: Bilateral Cementless Total Knee Replacement SURGEON: Mendel Starr EQUIPMENT OPERATOR WAGE HAND: Loretta Montanez ANESTHESIA TYPE: Spinal Refer to Anesthesia Record ESTIMATED BLOOD LOSS: 250 PATHOLOGY: none sent TOURNIQUET TIME: 0 COMPLICATIONS: None Patient was transported to: PACU Patient's condition: stable Implants: RIGHT: 1. Depuy Attune Cementless Cruciate Retaining Femoral Component, Size 7 2. Depuy Attune Cementless Rotating Platform Tibial Component, Size 7 3. Depuy Attune 7x6mm CR/RP Poly 4. Depuy Attune Patellar Component, Size 38mm LEFT: 1. Depuy Attune Cementless Cruciate Retaining Femoral Component, Size 7 2. Depuy Attune Cementless Rotating Platform Tibial Component, Size 7 3. Depuy Attune 7x6mm CR/RP Poly 4. Depuy Attune Patellar Component, Size 38mm Indications: I have seen Ed in clinic for symptoms of bilateral knee arthritis, confirmed with radiographic findings. Ed has exhausted nonoperative methods and was having significant limitations in daily function and desired better function and less pain. I discussed the technical details of a knee replacement. I explained the risks of the procedure to include, but not limited to, bleeding, infection, pain, stiffness, fracture, damage to nerves and vessels, damage to muscles and tendons, loosening, need for repeat procedure, blood clot and cardiopulmonary demise. Despite these risks, he elected to proceed. Findings: There was significant signs of arthritis throughout the knee most of the central patella, trochlea, and medial compartment. Procedure Description: Ed was greeted in the preoperative holding area where the correct side was identified and marked. The consent was reviewed with the patient and signed. The history and physical was updated. All questions were answered. Preoperative medications were administered: Acetaminophen 1000mg, Celebrex 400mg, and Gabapentin 300mg. An adductor canal block was then administered by the anesthesia team in the PACU. Ed was taken back to the operating room. A spinal anesthestic was then administered. The patient was placed into the supine position on the operating room table. No tourniquet was used. Posts were placed for positioning during the procedure. All bony prominences were well padded. Prophylactic antibiotics in the form of Cefazolin were administered. 1g of Tranxemic Acid was given intravenously within 30 minutes of incision. Both legs were then prepped with Chloraprep and draped in a standard fashion with impervious stockinette and a bilateral extremity drape. A second prep with Chloraprep was performed prior to application of Iodine impregnated skin protection on both knees. A timeout to confirm correct identity, side and site, procedure, allergies, anesthesia, and medical concerns was performed. LEFT KNEE: With the knee in some flexion, a midline incision was made overlying the knee. Full thickness skin flaps were raised once the extensor mechanism was encountered. These were raised medially and laterally. Any bleeding was controlled with electrocautery. Once the extensor mechanism was fully exposed, a medial parapatellar arthrotomy was performed in a flexed position. All bleeding from the arthrotomy and the geniculate arteries was coagulated. A medial subperiosteal peel was performed with electrocautery to the midcoronal plane. The fat pad was removed while keeping the patellar tendon protected. The anterior distal femur synovium was removed for later visualization. The ACL and PCL were resected and the anterior horn of the lateral meniscus was transected. The knee was then flexed with the patella everted. Large osteophytes from the tibia were removed. Large osteophytes from the femur were removed. These were mostly medial. The central patella also had some delamination of the cartilage. Using a step drill, and based on preoperative templating, the femoral canal was entered. This was done with a step drill without any difficulty. The intramedullary distal femoral cut guide was inserted, set to a 5 degree valgus cut and 9mm cut thickness. The distal femoral cut guide was then held in posi tion and pinned. With the soft tissues protected, the distal cut was performed. This was passed over a few times to ensure a planar cut. I then turned attention to the tibia. The extramedullary guide was placed onto the leg. The distal aspect was slid medial to adjust for position of center of ankle and stay in line with shaft of the tibia. Approximately 3-5 degrees of posterior slope was kept in the proximal cutting guide. The center of the guide was aligned with the PCL. The stylus was used to assess cut thickness. The medial side, most involved side, was set for a 5mm cut. This was then held in position and pinned into place with 2 additional pins and a cross pin for stability. The medial and lateral collateral ligaments were protected and the cut was performed. With this c ompleted, it was assessed and noted to be of appropriate dimensions. The guide was removed. A spacer block was inserted and the knee was brought into extension. The 6mm spacer block provided full extension, without hyperextension and with stability of both the medial and lateral collateral ligaments was assessed. The pins from the femur and the tibia were then removed. The distal femur was then sized. The anterior stylus was placed onto the lateral ridge of the anterior femur. This indicated a size 7 femur. The external rotation of the guide was adjusted to 3 degrees to match the epico ndylar axis, perpendicular to Monona?s line. The 4-in-1 cutting guide was the placed. The posterior medial femur cut was evaluated and appeared of good thickness. The spacer block was inserted underneath the cutting guide and stability was confirmed in 90 degrees of flexion. An chava wing was used to confirm appropriate position of the anterior cut to avoid notching. This cutting guide was ensured to be flush on the cut surface and then pinned into place with headed pins. While protecting the soft tissues, quad tendon, and collateral ligaments, the anterior and posterior cuts were performed with a saw. The central two pins were removed and the posterior and anterior chamfers were cut next. The notch-cutting guide was placed. This was pinned to lateralize the femoral component as much as possible while keeping it flush on the cut surface. This was then pinned into position. A reciprocating saw was used to make the notch cut. A rasp smoothed the cut surfaces. The medial and lateral menisci were removed. A trial femoral component was then inserted, impacted down to the cut surfaces, and the lug holes were drilled. A provisional trial tibial component was placed and the knee was brought through range of motion. There was noted to be excellent extension and flexion. There was no significant instability. The patella was tracking without thumbs. A size 6mm polyethylene component provided the best range of motion and stability with less than 2mm gapping with medial and lateral stress and full extension without significant hyperextension. The tibial cut surface was fully exposed. The tibia was then sized as a 7. The tibia had been previously marked during trialing to correspond to the center of the tibial component to help with rotation. The trial was aligned to this sandoval, approximately rotated to the medial 1/3rd of the tibial tubercle. The trial was pinned into place. The tibia was prepared with a reamer and a keel punch and lug holes. The knee was then brought into extension and the patella was measured as 27mm. Using the patellar clamp and cut guide, this was resected to a flat surface with at least 13mm of thickness remaining. The size 38 patella fit the best. This was oriented and then clamped into position. The lugs were drilled. The trial components were removed. The final components were opened on the back table. The periosteal and capsular tissues, especially posteriorly, around the knee were then systematically injected with a periarticular cocktail consisting of 50cc 0.25% Marcaine, 30mg Ketorolac, 20cc of Exparal and 50cc of injectable saline. The knee was thoroughly irrigated with a pulse lavage and dried. Irrisept was also used to irrigate the tissues. On the back table, with the implants opened, the cement was mixed. One batch of high viscosity cement was prepared with vacuum assistance. After the cement was ready a small amount was placed on the cut surface of the patella and the patellar button was clamped into position and held. While the cement was hardening, the cementless knee components were placed. Starting with the tibial component, the tibia was subluxed anteriorly and the lug holes of the component were lined up. The tibia was then impacted with an impactor and mallet until the tibial component was in contact with the tibia. The final polyethylene component was inserted. Then, the femoral component was inserted. The lug holes were aligned and the component was impacted into position. The knee was irrigated with Irrisept chlorhexadine solution. This was allowed to sit in the knee for 3 minutes. After the cement had finally cured, approximately 15min, the clamp was removed from the patella and the knee was taken through range of motion. The patella was tracking with a no-thumbs technique. The capsule was then reapproximated with a No. 2 Fiberwire. The second dosing of 1g TXA was started. Loretta Montanez PA-C continued with closure while I started the left knee described below. Deep tissues were then reapproximated with 0 Vicryl and 2-0 Vicryl. The skin was closed with a running 3-0 Monocryl in a subcuticular fashion. This was reinforced with skin glue. RIGHT KNEE: With the knee in some flexion, a midline incision was made overlying the knee. Full thickness skin flaps were raised once the extensor mechanism was enc ountered. These were raised medially and laterally. Bursal tissue was resected. Any bleeding was controlled with electrocautery. Once the extensor mechanism was fully exposed, a medial parapatellar arthrotomy was performed in a flexed position. All bleeding from the arthrotomy and the geniculate arteries was coagulated. A medial subperiosteal peel was performed with electrocautery to the midcoronal plane. The fat pad was removed while keeping the patellar tendon protected. The anterior distal femur synovium was removed for later visualization. The ACL and PCL were resected and the anterior horn of the lateral meniscus was transected. The knee was then flexed with the patella everted. Large osteophytes from the tibia were removed. Large osteophytes from the femur were removed. These were mostly medial. The central patella also had some delamination of the cartilage. Using a step drill, and based on preoperative templating, the femoral canal was entered. This was done with a step drill without any difficulty. The intramedullary distal femoral cut guide was inserted, set to a 5 degree valgus cut and 9mm cut thickness. The distal femoral cut guide was then held in p osition and pinned. With the soft tissues protected, the distal cut was performed. This was passed over a few times to ensure a planar cut. I then turned attention to the tibia. The extramedullary guide was placed onto the leg. The distal aspect was slid medial to adjust for position of center of ankle and stay in line with shaft of the tibia. Approximately 3-5 degrees of posterior slope was kept in the proximal cutting guide. The center of the guide was aligned with the PCL. The stylus was used to assess cut thickness. The medial side, most involved side, was set for a 5mm cut. This was then held in position and pinned into place with 2 additional pins and a cross pin for stability. The medial and lateral collateral ligaments were protected and the cut was performed. With this completed, it was assessed and noted to be of appropriate dimensions. The guide was removed. A spacer block was inserted and the knee was brought into extension. The 6mm spacer block provided full extension, without hyperextension and with stability of both the medial and lateral collateral ligaments was assessed. The pins from the femur and the tibia were then removed. The distal femur was then sized. The anterior stylus was placed onto the lateral ridge of the anterior femur. This indicated a size 7 femur. The external rotation of the guide was adjusted to 0 degrees to match the ep icondylar axis, perpendicular to Monona?s line, and for a balanced flexion gap. The 4-in-1 cutting guide was the placed. The posterior medial femur cut was evaluated and appeared of good thickness. The spacer block was inserted underneath the cutting guide and stability was confirmed in 90 degrees of flexion. An chava wing was used to confirm appropriate position of the anterior cut to avoid notching. This cutting guide was ensured to be flush on the cut surface and then pinned into place with headed pins. While protecting the soft tissues, quad tendon, and collateral ligaments, the anterior and posterior cuts were performed with a saw. The central two pins were removed and the posterior and anterior chamfers were cut next. The notch-cutting guide was placed. This was pinned to lateralize the femoral component as much as possible while keeping it flush on the cut surface. This was then pinned into position. A reciprocating saw was used to make the notch cut. A rasp smoothed the cut surfaces. The medial and lateral menisci were removed. A trial femoral component was then inserted, impacted down to the cut surfaces, and the lug holes were drilled. A provisional trial tibial component was placed and the knee was brought through range of motion. There was noted to be excellent extension and flexion. There was no significant instability. The patella was tracking without thumbs. A size 6mm polyethylene component provided the best range of motion and stability with less than 2mm gapping with medial and lateral stress and full extension without significant hyperextension. The tibial cut surface was fully exposed. The tibia was then sized as a 7. The tibia had been previously marked during trialing to correspond to the center of the tibial component to help with rotation. The trial was aligned to this sandoval, approximately rotated to the medial 1/3rd of the tibial tubercle. The trial was pinned into place. The tibia was prepared with a reamer and a keel punch and lug holes. The knee was then brought into extension and the patella was measured as 28mm. Using the patellar clamp and cut guide, this was resected to a flat surface with at least 13mm of thickness remaining. The size 38 patella fit the best. This was oriented and then clamped into position. The lugs were drilled. The trial components were removed. The final components were opened on the back table. The periosteal and capsular tissues, especially posteriorly, around the knee were then systematically injected with a periarticular cocktail consisting of 50cc 0.25% Marcaine, 30mg Ketorolac, 20cc of Exparal and 50cc of injectable saline. The knee was thoroughly irrigated with a pulse lavage and dried. Irrisept was also used to irrigate the tissues. On the back table, with the implants opened, the cement was mixed. One batch of high viscosity cement was prepared with vacuum assistance. After the cement was ready a small amount was placed on the cut surface of the patella and the patellar button was clamped into position and held. While the cement was hardening, the cementless knee components were placed. Starting with the tibial component, the tibia was subluxed anteriorly and the lug holes of the component were lined up. The tibia was then impacted with an impactor and mallet until the tibial component was in contact with the tibia. The final polyethylene component was inserted. Then, the femoral component was inserted. The lug holes were aligned and the component was impacted into position. The knee was irrigated with Irrisept chlorhexadine solution. This was allowed to sit in the knee for 3 minutes. After the cement had finally cured, approximately 15min, the clamp was removed from the patella and the knee was taken through range of motion. The patella was tracking with a no-thumbs technique. The capsule was then reapproximated with a No. 2 Fiberwire. The second dosing of 1g TXA was started. Deep tissues were then reapproximated with 0 Vicryl and 2-0 Vicryl. The skin was closed with a running 3-0 Monocryl in a subcuticular fashion. This was reinforced with skin glue. A Mepilex silver dressing was applied along with a [id number] NIKKI wrap to both knees. CryoCuff was applied. Ed was transferred to the hospital bed without difficulty an suffering no apparent complication. Ed has a good prognosis. Physical therapy will start today and without restrictions, weight-bearing as tolerated. Aspirin 81mg BID will be used for DVT prophylaxis.
--- NOTE | 2021-04-12 15:02 | W.ANESPOSTOP ---
Postoperative Evaluation Date, Time and Location Date Performed: 04/12/21 Time Performed: 15:02 Patient Location: PACU Vital Signs Most Recent Imported Vital Signs: Most Recent Vital Signs Temp Pulse Resp BP Pulse Ox 36.6 C 65 17 157/91 H 100 04/12/21 09:24 04/12/21 11:00 04/12/21 11:00 04/12/21 11:00 04/12/21 11:00 Most Recent Manually Entered Vital Signs: Adult Blood Pressure: 102/70 Heart Rate: 22 Respirations: 20 Oxygen Saturation (%): 96 Temperature (C): 36 C Pain Score (0-10 Scale): 0 Pain Score Most Recent Pain Score: Most Recent Pain Score Pain Level 8 04/12/21 09:24 Assessment Mental Status: Awake (Alert & Oriented to Patient Baseline) Airway and Respiratory Function: Patent airway with normal (patient baseline) respiratory exam Cardiovascular Function: Hemodynamically Stable Hydration Status: Adequately Hydrated Nausea & Vomiting: No Nausea or Vomiting Pain: Pt. Denies Any Pain Peripheral Nerve Block: Regional nerve block not resolved at time of post operative discharge
--- NOTE | 2021-04-12 15:43 | IN_ITS ---
Date of service: 04/12/21 Time of Service: 15:43 PT Notes Visit Reasons: Bilateral knee DJD Physical Therapy Inpatient Initial Evaluation Date: 04/12/2021 Referring Doctor: SUSANA Da Silva PT Orders: PT CONSULT: Status post ortho surgery Precautions: WBAT on BLE with AD. Patient Profile/Admitting Diagnosis: Brown is a 56-year-old male with bilateral degenerative joint disease of knees and is status post bilateral total knee arthroplasty on postoperative day 0. PMHX: Active Problem List (Updated 04/03/21 @ 19:22 by Loretta Montanez) Hypertension (Chronic) SVT (supraventricular tachycardia) (Chronic) Osteoarthritis of right knee (Chronic) Osteoarthritis of left knee (Chronic) Medical History (Updated 04/03/21 @ 19:22 by Loretta Montanez) Atherosclerotic heart disease of [place] coronary artery without angina pectoris Coronary artery disease PCI with FÉLIX to RCA 07/19/2020 [facility] Erectile dysfunction Family history of ischemic heart disease GERD (gastroesophageal reflux disease) Shortness of breath Surgical History (Updated 04/04/21 @ 11:18 by Loretta Montanez) History of coronary artery stent placement RCA -- 07/19/2020 Hx of elbow surgery Right lateral epicondyle debridement 2009 Social History/Home Situation: Lives with in a private home with 2 steps to enter with 1 rail. Has a flight of steps to the second floor of the house and another flight to the cellar but he states that he will be staying on the main floor as he recovers. Independent with all aspects of ADLs prior to surgery. 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 She will provide needed support for him during his recuperation. Equipment Owned/DME: None Subjective: Agreeable to PT consult. Reports popping sensation on the R knee with quick ascent from edge of bed. Denies pain accompanying the popping feelin g. Reports mild discomfort in bilateral knees with weight bearing. Overall feels her right knee to be going home tonight. Objective: General Observation: NIKKI wraps to bilateral LE. Cryocuff to bilateral knees. IV to L UE. Mental Status: Alert and oriented x4 Pain: 2-3/10 pain in B knees with weight bearing ROM: Right Lower Extremity: Hip flexion WFL. Hip abduction WFL. Knee flexion 10 degr ees to 100 degrees. Knee extension with mild extension lag of about 10 degrees. Ankle dorsiflexion WFL. Ankle plantarflexion WFL. Left Lower Extremity: Hip flexion WFL. Hip abduction WFL. Knee flexion 0 degrees to 100 degrees. Knee extension 100 to 0 degrees. Ankle dorsiflexion WFL. Ankle plantarflexion WFL. Strength: Right Lower Extremity: Hip flexors 5/5. Hip abductors 5/5. Knee flexors 3-/5. Knee extensors 3-/5. Ankle dorsiflexors 5/5. Ankle plantarflexors 5/5. Left Lower Extremity:Hip flexors 5/5. Hip abductors 5/5. Knee flexors 3-/5. Knee extensors 3-/5. Ankle dorsiflexors 5/5. Ankle plantarflexors 5/5. Sensation: Numb in B feet, dorsum and soles Bed Mobility/Transfers: Supine to sit independent Sit to stand contact-guard assist Stand to sit standby assist Bed to chair contact-guard assist Gait: Instructed patient with level surface ambulation of 150 feet +150 feet using front wheeled walker with step-to gait pattern requiring contact-guard assist. Did demonstrate a mild giving way of the right knee x 3 requiring minimal assist from PT for support but no LOB. Denies headache, chest pain, and dizziness throughout activity. Reports mild pain to 3?10 in bilateral knees with weight-bearing. Stairs: Negotiated 6 x 4 inch steps and 4 to 6 inch steps while holding onto bilateral rails with step to gait pattern with contact-guard assist requiring minimal verbal cueing for overall safety and correct gait pattern. Balance: Static Sitting: Normal Dynamic Sitting: Normal Static Standing: Fair Dynamic Standing: Fair Special Tests: Mobility Limitations Standardized Measure [facility] 6 clicks Basic Mobility Inpatient Short Form: Raw Score: 21 CMS Score: 29% deficit Informed Consent/Education: Patient instructed in purpose of PT consult. Education and training on initial set of exercises that can be done at home have been completed with patient. Assessment: Mild extension lag of about 10 degrees on the right side but st raight leg raise. Right knee mildly giving way x 3 places the patient at high risk of falls and is therefore strongly advised to use his walker at all times until he sees outpatient PT on Saturday. Advised patient to call orthopedic surgeon should popping sensation heard and felt on the right knee recurs and/or worsens. Patient presents with clinical signs and symptoms consistent with current/admitting diagnoses that have resulted to mobility limitations, gait instability, generalized weakness, and impairment of motor control as demonstrated by the following impairment level findings: 1. Decreased strength to B knees major muscle groups 2. Impaired standing balance 3. Limitation of joint range of motion in B knees 4. Popping sensation in the R knee x 2 Impairments are contributing to the following functional limitations: 1. Inability to safely ambulate without assistive device 2. Increase completion time for mobility ADL performance 3. Increased fall risk Patient is assessed as a 90019 moderate complexity based on the following: History: 56 [id number] with impairment level findings, functional limitations, and past medical history as indicated above Examination: Demonstrable impairment in strength, balance, and mobility level with underlying impairments and functional limitations as documented above Presentation: Evolving Decision Makin moderate complexity Goals: N/A. PT evaluation and 1-2 treatment sessions only for functional mobility training using recommended AD and for HEP instruction. Plan of Care/Treatment Plan: N/A. PT evaluation and 1-2 treatment session only for functional mobility training using recommended AD and for HEP instruction. DISCHARGE RECOMMENDATIONS: [] Home with no services [] [X] Home with services. Home when medically cleared by orthopedic surgeon. Outpatient PT services facilitate return to premorbid independent community ambulation without an assistive device. [] Home with outpatient PT [] [] SNF for continued rehabilitation [] [] Alf Care [] [] SNF versus LTC based on ability to participate and progress [] TREATMENT CODE/TIME: 89114 x 30 minutes, 29685 x 12 minutes beginning at 15:43 PM. Thank you for the opportunity to participate in the care of this patient. Nasima Alegre PT, DPT, CLT [facility] [place], [place]
== END 2021-04-12 17:31 | disposition home or self-care (01) | DRG 462 ==
LOC: PDS 04-13 10:06 → MS 04-13 10:07
PROVIDERS: Admitting Provider Student in an Organized Health Care Education/Training Program; Visit Provider Student in an Organized Health Care Education/Training Program
PROC: 0SRC0JZ Replacement of Right Knee Joint with Synthetic Substitute, Open Approach (ICD-10-PCS; CPT 27447; principal; 2021-04-12 12:45)
DX: M17.0 Bilateral primary osteoarthritis of knee (principal); I47.1 Supraventricular tachycardia; I10 Essential (primary) hypertension; K21.9 Gastro-esophageal reflux disease without esophagitis; Z95.5 Presence of coronary angioplasty implant and graft; I25.10 Atherosclerotic heart disease of native coronary artery without angina pectoris
CPT/HCPCS: 27447; C1776; 76942; 97162; 97530; J0690; J1885; J2001; J2250; J2704

== ENCOUNTER 2021-04-24 09:37 | Inpatient (IN) | payer BC, SELFPAY ==
[2021-04-24] VITALS (11 sets, daily range): BP systolic 119–153; BP diastolic 72–110; PULSE 89–99; RESP 14–20; TEMP 36.1–37.5; O2SAT 95–100; BMI 28.5
--- NOTE | 2021-04-24 10:09 | W.ED.GENAD ---
Discharge Plan Disposition Patient Disposition: [facility] INPATIENT Condition: Serious Discharge Details Chief Complaint: Orthopedic Clinical Impression: Infection of total right knee replacement Admit Date/Time: 04/24/21 10:20 Admit Provider: Mendel Starr Attending Provider: Mendel Starr Primary Care Provider: Unknown,Unknown ED Provider: Shavonne Portillo Medical Decision Making Patient's knee appears infected, he has purulent blood tinged drainage from slight dehiscence to the affected extremity He has reported fevers at home although took Tylenol prior to arrival and is afebrile here Will order blood cultures, lactate, wound culture, inflammatory markers Discussed with Dr. Starr, will leave imaging choice to his discretion I been asked to hold IV antibiotic until patient is evaluated Patient is afebrile and nontoxic in appearance here, will need admission, Dr. Starr will admit patient to the hospital Negative Covid swab Patient is agreeable to admission at this time He is notedly anemic, this is likely postoperative in nature, hemoglobin 9.6, hematocrit 30, will order type and screen, patient denies any blood in stool HPI General Mode of arrival: ambulatory. Date/Time Provider Initiated Documentation: 04/24/21 09:38. Limitations to Documentation: no limitations. Information obtained by: patient. HPI Narrative: This 48-year-old woman with history of SVT, coronary artery disease, hypertension and status post bilateral knee replacements presents with drainage, worsening pain, and low-grade fevers at home starting yesterday. Surgery was on 04/12/2021 per patient. Denies any injury to the affected area. Drainage worsened yesterday. Related Data Home Medications Medication Instructions Recorded Confirmed aspirin 81 mg PO DAILY 02/04/21 04/24/21 sildenafil 50 mg tablet 50 mg PO DAILY 02/17/21 04/24/21 amlodipine 5 mg tablet 5 mg PO DAILY 02/23/21 04/24/21 clopidogrel 75 mg tablet 75 mg PO DAILY #90 tab 02/23/21 04/24/21 metoprolol succinate 25 mg 50 mg PO DAILY tab 04/04/21 04/24/21 tablet,extended release 24 hr acetaminophen 1,000 mg PO Q8H PRN #90 tab 04/12/21 04/24/21 celecoxib [Celebrex] 200 mg PO BID #30 cap 04/12/21 04/24/21 docusate sodium [Colace] 100 mg PO BID #30 cap 04/12/21 04/24/21 gabapentin 300 mg PO QHS #14 cap 04/12/21 04/24/21 pantoprazole 40 mg PO DAILY #30 tab 04/12/21 04/24/21 oxycodone 10 mg tablet 10 mg PO Q6H PRN #20 tab MDD 40mg 04/21/21 04/24/21 Previous Rx's Medication Instructions Recorded clopidogrel 75 mg tablet 75 mg PO DAILY #90 tab 02/23/21 acetaminophen 1,000 mg PO Q8H PRN #90 tab 04/12/21 celecoxib [Celebrex] 200 mg PO BID #30 cap 04/12/21 docusate sodium [Colace] 100 mg PO BID #30 cap 04/12/21 gabapentin 300 mg PO QHS #14 cap 04/12/21 pantoprazole 40 mg PO DAILY #30 tab 04/12/21 oxycodone 10 mg tablet 10 mg PO Q6H PRN #20 tab MDD 40mg 04/21/21 Allergies Allergy/AdvReac Type Severity Reaction Status Date / Time No Known Allergies Allergy Verified 04/24/21 09:56 General Stated Complaint: Orthopedic CALE: 3 Review of Systems All systems reviewed & are unremarkable except as noted in HPI and below PFSH All Active Problems (Updated 04/24/21 @ 15:23 by Mendel Starr MD) Infection of total right knee replacement (Acute) Osteoarthritis of left knee (Chronic) Osteoarthritis of right knee (Chronic) SVT (supraventricular tachycardia) (Chronic) Hypertension (Chronic) Medical History Atherosclerotic heart disease of [place] coronary artery without angina pectoris Coronary artery disease PCI with FÉLIX to RCA 07/19/2020 [facility] Erectile dysfunction Family history of ischemic heart disease GERD (gastroesophageal reflux disease) Shortness of breath Surgical History History of coronary artery stent placement RCA -- 07/19/2020 History of heart artery stent 07/2020 Hx of elbow surgery Right lateral epicondyle debridement 2009 Family History Mother Scleroderma Maternal Grandfather Myocardial infarction Uncle Myocardial infarction Uncle Myocardial infarction Social History Smoking/Tobacco Use Status: Never Smoking risk assessment performed?: Yes Alcohol Intake: current Alcohol Intake frequency: 0-2 drinks per day Alcohol type: beer and hard liquor Drug use: Never Substance use type: does not use Household members: spouse current occupation: travels for work to [employer] Current gender identity: male Do you feel safe at home: Yes Do you feel safe in your relationship?: Yes Exam Const General: cooperative, comfortable and no acute distress Eyes Sclera: sclerae normal Resp Effort & Inspection: normal respiratory effort Cardio Rhythm: regular rhythm GI Other: No abdominal tenderness Skin Other: Mild erythema noted around right knee Neuro General: patient alert and patient oriented x3 Extrem Other: Right knee with effusion, purulent, blood-tinged drainage, diffusely tender and warm to the touch, mild dehiscence overlying patella, no lymphangitis, no crepitus Course Vital Signs Vital signs: Vital Signs Temperature 36.1 C L 04/24/21 09:42 Pulse 95 H 04/24/21 09:42 Respiratory Rate 16 04/24/21 09:42 Blood Pressure 122/72 04/24/21 09:42 Pulse Oximetry 95 04/24/21 09:42 Temperature 36.1 C L 04/24/21 09:42 Pulse 95 H 04/24/21 09:42 Respiratory Rate 16 04/24/21 09:42 Respiratory Effort Non-Labored 04/24/21 09:50 Blood Pressure 122/72 04/24/21 09:42 Blood Pressure Position Sitting 04/24/21 09:42 Pulse Oximetry 95 04/24/21 09:42 Oxygen Delivery Method Room Air 04/24/21 09:42 Oxygen Flow Rate 0 04/24/21 09:42 Pain Level 2 04/24/21 09:50 Comment 04/24/21 09:42 Lab/Test Results Lab/Test Results: 04/24/21 10:08 Blood Blood Culture - Pending 04/24/21 10:08 Blood Blood Culture - Pending PAWSS Have you Been Recently Intoxicated or Drunk Within the Last 30 days?: No Have you Ever Experienced Previous Episodes of Alcohol Withdrawal?: No Have you ever Experienced Withdrawal Seizures?: No Have you ever Experienced Delirium Tremens(DT)s?: No Have you ever undergone Alcohol Rehabilitation Treatment (i.e, inpt ot outpatient treatment programs)?: No Have you ever Experienced Blackouts?: No Have you ever Combined Alcohol with other Downers within the last 90 days?: No Have you ever Combined Alcohol with any other Substance of Abuse during the last 90 days?: No Positive Blood Alcohol level on Presentation? [PCS.BAL]: No Evidence of Increased Autonomic Activity (i.e. HR>120, tremor, sweating, agitation, nausea)?: No Result: 0
[2021-04-24 10:34] LABS: Abs Immature Grans 0.08 10^3/uL (0.0-0.06); Absolute Basophil Count 0.05 10^3/uL (0.0-0.2); Absolute Lymphocyte Count 0.79 10^3/uL (1.2-3.4); Absolute Monocyte Count 1.26 10^3/uL (0.1-0.8); Basophils % 0.4; Eosinophils % 0.2; HCT 29.7 % (40.0-50.0); HGB 9.6 g/dL (13.5-17.5); Immature Grans % 0.6; Lactate 1.2 mmol/L (0.6-1.4); Lymphocytes % 6.3; MCH 33.6 pg (27.0-33.0); MCHC 32.3 % (32.0-36.0); MCV 103.8 fL (80-95); Monocytes % 10.1; Neutrophils % 82.4; Nucleated RBC 0 %; Platelet Count 414 10^3/uL (130-400); RBC 2.86 10^6/uL (4.36-5.78); RDW 13.6 % (11.8-14.1); Source Nasal/Nares; WBC 12.48 10^3/uL (4.4-10.8)
[2021-04-24 10:35] LABS: Absolute Eosinophil Count 0.02 10^3/uL (0.0-0.7); Absolute Neutrophil Count 10.28 10^3/uL (1.2-6.7)
[2021-04-24 10:45] LABS: C-Reactive Protein 7.02 mg/dL (0.0-0.3)
[2021-04-24 10:53] LABS: ALT 25 U/L (16-63); AST 18 U/L (15-37); Albumin 3.1 g/dL (3.4-5.0); Alkaline Phosphatase 63 U/L (46-116); BUN 16 mg/dL (7-18); Bilirubin, Total 1.3 mg/dL (0.2-1.0); CREATININE 1.2 mg/dL (0.70-1.30); Calcium 8.8 mg/dL (8.5-10.1); Chloride 106 mmol/L (98-107); Glucose 116 mg/dL (74-106); Potassium 4.5 mmol/L (3.5-5.1); Sodium 139 mmol/L (136-145)
[2021-04-24 11:19] LABS: COVID-19 PCR Negative (Negative)
--- NOTE | 2021-04-24 12:10 | DI.RAD_ITS ---
Exam(s) XR KNEE RT 2V AP,LAT EXAM: XR KNEE RT 2V AP,LAT CLINICAL HISTORY: eval R knee. TECHNIQUE: 2D digital imaging was performed. COMPARISON: 02/03/2021 FINDINGS: There is soft tissue avulsion anterior to the patella. No patellar fracture evident. Position alignment of the components of right knee prosthesis remain stable. No fracture or loosenin g evident. IMPRESSION: DATA REPOSITORY: RADIATION DOSE DELIVERED:
[2021-04-24 13:11] LABS: Clarity Purulent; Nucleated Cells 116530 uL (0)
[2021-04-24 13:14] LABS: Mononuclear Cells 1 %; Polynuclear Cells 99 %
[2021-04-24] MEDS: Acetaminophen 500 MG TAB 1000 MG PO ×2 (13:35→21:08)
[2021-04-24] MEDS: oxyCODONE 10 MG TAB PO (13:36)
[2021-04-24] MEDS: Lactated Ringers 1,000 ML 80 ML IV (14:25)
--- NOTE | 2021-04-24 14:35 | W.ORTHOCONSU ---
Date of service: 04/24/21 Time of Service: 12:35 History of Present Illness History of Present Illness Chief Complaint: Right Knee Pain, Swelling, Discharge Narrative: Ed is a 56-year-old who is about 10 days status post bilateral knee replacements. He reports that he had been doing well. He initially had some pain but this pain seem to be improving. Unfortunately, after a long walk yesterday he started having increasing pain about the right knee with some swelling. When he awoke this morning he had significant pain, difficulty with weightbearing, difficulty with motion, redness, and some slight drainage from the central aspect of the wound. He thought things were moving along well up to this point yesterday. He still has no concerns with the left knee and is ambulating without assistive device. Consults Consult date: 04/24/21 Requesting physician: Shavonne Portillo Consult Reason Right Knee Infection Assessment and Plan Assessment and plan (1) Infection of total right knee replacement: Status: Acute Assessment and plan: Ed is a 56-year-old who is almost 2 weeks out from bilateral knee replacements. Unfortunately he has developed 1 day of excruciating pain, swelling, and drainage from his right knee. He clinically has an infection of the right knee replacement. His CRP is elevated and his cell count is greater than 100,000 with 99% polymorphonuclear cells and gram-positive cocci on culture. This is likely a staph infection. Thankfully, this is early in the course and I do not see any concerning features about the left knee although we must be cautious about the left knee although I would not do any specific treatments for the left knee given he has no pain. I reviewed the causes with Ed. At this point, I would recommend an aggressive irrigation and debridement with polyethylene exchange. I discussed the risk of the procedure to include bleeding, infection continuation, stiffness, weakness, damage to nerves and vessels, damage to muscle and tendons, need for repeat procedures, blood clot. Despite these risk, he elects to proceed. We will hold on antibiotics at this time. He will remain n.p.o. I will obtain cultures in the operating room in addition to what was obtained earlier today. He will be in hospital for at least a few days to obtain culture data and establish an antibiotic regimen. Qualifiers: Encounter type: initial encounter Qualified Code(s): T84.53XA - Infection and inflammatory reaction due to internal right knee prosthesis, initial encounter Review of Systems All systems reviewed & are unremarkable except as noted in HPI and below PFSH All Active Problems (Updated 04/24/21 @ 16:02 by Mendel Starr MD) Infection of total right knee replacement (Acute) Osteoarthritis of left knee (Chronic) Osteoarthritis of right knee (Chronic) SVT (supraventricular tachycardia) (Chronic) Hypertension (Chronic) Medical History Atherosclerotic heart disease of [place] coronary artery without angina pectoris Coronary artery disease PCI with FÉLIX to RCA 07/19/2020 [facility] Erectile dysfunction Family history of ischemic heart disease GERD (gastroesophageal reflux disease) Shortness of breath Surgical History History of coronary artery stent placement RCA -- 07/19/2020 History of heart artery stent 07/2020 Hx of elbow surgery Right lateral epicondyle debridement 2009 Family History Mother Scleroderma Maternal Grandfather Myocardial infarction Uncle Myocardial infarction Uncle Myocardial infarction Social History Smoking/Tobacco Use Status: Never Smoking risk assessment performed?: Yes Alcohol Intake: current Alcohol Intake frequency: 0-2 drinks per day Alcohol type: beer and hard liquor Drug use: Never Substance use type: does not use Household members: spouse current occupation: travels for work to [employer] Current gender identity: male Do you feel safe at home: Yes Do you feel safe in your relationship?: Yes Exam Narrative Exam Narrative: NAD. AAOx3. Uncomfortable. Resp Auscultation: clear to auscultation bilaterally Cardio Rate: regular rate Rhythm: regular rhythm Extrem Other: Evaluation of the right knee shows notable swelling and effusion. There is some mild redness around the central portion of the wound with some drainage of purulent material from the central portion of the wound. There is pain with all passive and active range of motion. The knee is held in about 20? of flexion. An aspiration of the right knee was performed with grossly purulent material removed. I was in the left knee shows a well-healed incision. No significant swelling. No erythema. No effusion. Range of motion is nearly fully straight about 110 degrees. No laxity to varus or valgus stress. Results Last Vital Signs Temp 36.6 C 04/24/21 12:22 Pulse 95 H 04/24/21 12:22 Resp 14 04/24/21 12:22 BP 142/87 H 04/24/21 12:22 Pulse Ox 100 04/24/21 12:22 Labs Result diagrams: 04/24/21 10:22 04/24/21 10:22 Labs: Laboratory Results - last 24 hr 04/24/21 04/24/21 04/24/21 10:22 10:22 10:22 WBC 12.48 H RBC 2.86 L Hgb 9.6 L Hct 29.7 L MCV 103.8 H MCH 33.6 H MCHC 32.3 RDW 13.6 Plt Count 414 H D MPV 9.0 Immature Gran % 0.6 Neutrophils % 82.4 Lymphocytes % 6.3 Monocytes % 10.1 Eosinophils % 0.2 Basophils % 0.4 Nucleated RBC % 0 Absolute Neutrophils 10.28 H Absolute Lymphocytes 0.79 L Absolute Monocytes 1.26 H Absolute Eosinophils 0.02 Absolute Basophils 0.05 VBG Lactate Sodium 139 Potassium 4.5 Chloride 106 Carbon Dioxide 27.0 Anion Gap 6.0 BUN 16 Creatinine 1.2 Estimated GFR/1.73 m2 >= 60.00 Glucose 116 H Calcium 8.8 Total Bilirubin 1.3 H AST 18 ALT 25 Alkaline Phosphatase 63 C-Reactive Protein Total Protein 7.0 Albumin 3.1 L Fluid Source Fluid Color Fluid Clarity Fluid WBC Fld Polynuclear WBCs % Fluid Mononuclear Cell COVID-19 Source Nasal/Nares SARS-CoV-2 (PCR) Negative Patient ABO/Rh Antibody Screen 04/24/21 04/24/21 04/24/21 10:22 10:22 10:50 WBC RBC Hgb Hct MCV MCH MCHC RDW Plt Count MPV Immature Gran % Neutrophils % Lymphocytes % Monocytes % Eosinophils % Basophils % Nucleated RBC % Absolute Neutrophils Absolute Lymphocytes Absolute Monocytes Absolute Eosinophils Absolute Basophils VBG Lactate 1.2 Sodium Potassium Chloride Carbon Dioxide Anion Gap BUN Creatinine Estimated GFR/1.73 m2 Glucose Calcium Total Bilirubin AST ALT Alkaline Phosphatase C-Reactive Protein 7.02 H Total Protein Albumin Fluid Source Fluid Color Fluid Clarity Fluid WBC Fld Polynuclear WBCs % Fluid Mononuclear Cell COVID-19 Source SARS-CoV-2 (PCR) Patient ABO/Rh O Positive Antibody Screen NEGATIVE 04/24/21 12:30 WBC RBC Hgb Hct MCV MCH MCHC RDW Plt Count MPV Immature Gran % Neutrophils % Lymphocytes % Monocytes % Eosinophils % Basophils % Nucleated RBC % Absolute Neutrophils Absolute Lymphocytes Absolute Monocytes Absolute Eosinophils Absolute Basophils VBG Lactate Sodium Potassium Chloride Carbon Dioxide Anion Gap BUN Creatinine Estimated GFR/1.73 m2 Glucose Calcium Total Bilirubin AST ALT Alkaline Phosphatase C-Reactive Protein Total Protein Albumin Fluid Source R Knee Fluid Color Red Fluid Clarity Purulent Fluid WBC [id number] Fld Polynuclear WBCs % 99 Fluid Mononuclear Cell 1 COVID-19 Source SARS-CoV-2 (PCR) Patient ABO/Rh Antibody Screen
--- NOTE | 2021-04-24 15:15 | W.ANESPRE ---
General Info Date of Service Date Performed: 04/24/21 Height: 6 ft Weight: 95.4 kg Body Mass Index (BMI): 28.5 Surgical Procedure: Operation Date: 04/24/21 16:10 Proposed Procedures Side Surgeon p Knee Polyethylene Exchange I&D Right Mendel Starr MD Meds Allergies and Home Medications Allergies Allergy/AdvReac Type Severity Reaction Status Date / Time No Known Allergies Allergy Verified 04/24/21 09:56 Home Medication Medication Instructions Recorded aspirin 81 mg PO DAILY 02/04/21 sildenafil 50 mg tablet 50 mg PO DAILY 02/17/21 amlodipine 5 mg tablet 5 mg PO DAILY 02/23/21 clopidogrel 75 mg tablet 75 mg PO DAILY #90 tab 02/23/21 metoprolol succinate 25 mg 50 mg PO DAILY tab 04/04/21 tablet,extended release 24 hr acetaminophen 1,000 mg PO Q8H PRN #90 tab 04/12/21 celecoxib [Celebrex] 200 mg PO BID #30 cap 04/12/21 docusate sodium [Colace] 100 mg PO BID #30 cap 04/12/21 gabapentin 300 mg PO QHS #14 cap 04/12/21 pantoprazole 40 mg PO DAILY #30 tab 04/12/21 oxycodone 10 mg tablet 10 mg PO Q6H PRN #20 tab MDD 40mg 04/21/21 Current Visit Medications: Current Medications Generic Name Dose Route Start Last Admin Trade Name Freq PRN Reason Stop Dose Admin Acetaminophen 1,000 mg 04/24/21 14:00 04/24/21 13:35 Acetaminophen 500 Mg Tab PO 1,000 mg TID [facility] Administration Amlodipine Besylate 5 mg 04/25/21 08:30 Amlodipine 5 Mg Tab PO DAILY MICHAELA Aspirin 81 mg 04/25/21 08:30 Aspirin E.C. 81 Mg Tabec PO DAILY MICHAELA Celecoxib 200 mg 04/24/21 20:00 Celecoxib 200 Mg Cap PO BID MICHAELA Clopidogrel Bisulfate 75 mg 04/25/21 08:30 Clopidogrel 75 Mg Tab PO DAILY MICHAELA Docusate Sodium 100 mg 04/24/21 10:19 Docusate Sodium 100 Mg Cap PO BID PRN PRN Constipation Gabapentin 300 mg 04/24/21 22:00 Gabapentin 300 Mg Cap PO HS MICHAELA Hydromorphone HCl 0.5 mg 04/24/21 10:19 Hydromorphone 2 Mg/Ml Vial IVP Q2H PRN PRN Ringer's Solution 1,000 mls @ 80 mls/hr 04/24/21 13:45 04/24/21 14:25 IV 80 mls/hr INFUSION MICHAELA Administration Metoprolol Succinate 50 mg 04/25/21 08:30 Metoprolol Cr 50 Mg Tabcr PO DAILY MICHAELA Oxycodone HCl 10 mg 04/24/21 10:22 04/24/21 13:36 Oxycodone 10 Mg Tab PO 10 mg Q4H PRN PRN Administration pain Pantoprazole Sodium 40 mg 04/25/21 07:30 Pantoprazole 40 Mg Tabcr PO DAILY@0730 MICHAELA Polyethylene Glycol 17 gm 04/24/21 10:19 Polyethylene Glycol 3350 17 Gm Packet PO BID PRN PRN Constipation PFSH Active Problems Active Problems: Problem Status Onset Code Osteoarthritis of left knee M17.12 Osteoarthritis of right knee M17.11 SVT (supraventricular tachycardia) I47.1 Hypertension I10 Medical History Medical History Atherosclerotic heart disease of [place] coronary artery without angina pectoris Coronary artery disease PCI with FÉLIX to RCA 07/19/2020 [facility] Erectile dysfunction Family history of ischemic heart disease GERD (gastroesophageal reflux disease) Shortness of breath Surgical History Surgical History History of coronary artery stent placement RCA -- 07/19/2020 History of heart artery stent 07/2020 Hx of elbow surgery Right lateral epicondyle debridement 2009 Tobacco Smoking/Tobacco Use Status: Never Alcohol Alcohol Intake: current Alcohol intake frequency: 0-2 drinks per day Alcohol type: beer and hard liquor Substance Use Substance use: Never Substance use type: does not use Vital Signs and Lab Results Vital Signs Most Recent Vital Signs in EMR: Most Recent Vital Signs Temp Pulse Resp BP Pulse Ox 36.6 C 95 H 14 142/87 H 100 04/24/21 12:22 04/24/21 12:22 04/24/21 12:22 04/24/21 12:22 04/24/21 12:22 Lab Results Result Diagrams: 04/24/21 10:22 04/24/21 10:22 Blood Type / Crossmatch: Patient ABO/Rh O Positive 04/24/21 10:50 04/24/21 Antibody Screen NEGATIVE 04/24/21 10:50 04/24/21 Complete Blood Count: White Blood Count 12.48 10^3/uL (4.4-10.8) H 04/24/21 10:22 04/24/21 Red Blood Count 2.86 10^6/uL (4.36-5.78) L 04/24/21 10:22 04/24/21 Hemoglobin 9.6 g/dL (13.5-17.5) L 04/24/21 10:22 04/24/21 Hematocrit 29.7 % (40.0-50.0) L 04/24/21 10:22 04/24/21 Platelet Count 414 10^3/uL (130-400) H 04/24/21 10:22 04/24/21 Venous Blood Lactate 1.2 mmol/L (0.6-1.4) 04/24/21 10:22 04/24/21 Complete Metabolic Panel: Sodium Level 139 mmol/L (136-145) 04/24/21 10:22 04/24/21 Potassium Level 4.5 mmol/L (3.5-5.1) 04/24/21 10:22 04/24/21 Chloride Level 106 mmol/L (98-107) 04/24/21 10:22 04/24/21 Carbon Dioxide Level 27.0 mmol/L (21.0-32.0) 04/24/21 10:22 04/24/21 Blood Urea Nitrogen 16 mg/dL (7-18) 04/24/21 10:22 04/24/21 Creatinine 1.2 mg/dL (0.70-1.30) 04/24/21 10:22 04/24/21 Estimated GFR/1.73 m2 >= 60.00 (mL/min/1.73m2) 04/24/21 10:22 04/24/21 Calcium Level 8.8 mg/dL (8.5-10.1) 04/24/21 10:22 04/24/21 Albumin 3.1 g/dL (3.4-5.0) L 04/24/21 10:22 04/24/21 Glucose Level 116 mg/dL (74-106) H 04/24/21 10:22 04/24/21 C-Reactive Protein 7.02 mg/dL (0.0-0.3) H 04/24/21 10:22 04/24/21 Liver Function Panel: Alanine Aminotransferase (ALT/SGPT) 25 U/L (16-63) 04/24/21 10:22 04/24/21 Aspartate Amino Transf (AST/SGOT) 18 U/L (15-37) 04/24/21 10:22 04/24/21 Coagulation Panel: No Data to Display Cardiac Panel: No Data to Display Arterial Blood Gas: No Data to Display Venous Blood Gas: No Data to Display Pancreas Panel: No Data to Display Thyroid Panel: No Data to Display Infectious Disease: Coronavirus (COVID-19)(PCR) Negative (Negative) 04/24/21 10:22 04/24/21 Coronavirus 2019 Source Nasal/Nares 04/24/21 10:22 04/24/21 Blood Cultures: No Data to Display Toxicology Panel: No Data to Display Imaging and Studies Imaging and Studies Study information below may be from another EMR and interpreted by another provider. Please see original notes in EMR for more complete details. Stress Test Summary: 06/28/2020: EF 55%, Perfusion abnormal, Severe reversible defect in inferior and septal regions. Echocardiogram Summary: 07/10/2020: [facility] [place]: EF 63%, Mild TR. Cardiac Catheterization Summary: 07/19/2020: [place]: Mild to moderate multivessel disease. RCA FÉLIX stent placed. Anesthesia Assessment and Plan Anesthesia History Personal History: No History of Anesthesia Complications Family History: No Family History of Anesthesia Complications Exercise Tolerance Exercise Tolerance: Metabolic Equivalents>4 Pertinent Negatives Pertinent Negatives: No Symptoms of GERD Cardiac & Pulmonary Exam Cardiac Exam: Normal S1/S2 Heart Sounds Pulmonary Exam: Clear Bilateral Breath Sounds Implantable Cardiac Device Does patient have a Pacemaker or an ICD?: No Airway Exam Known Difficult Airway: No Mallampati Class: 1 Mouth Opening: Normal (> 3cm) Thyromental Distance: Greater than 3 cm Neck Range of Motion: Full ROM Neck Circumference: Normal Teeth Condition: Normal Dentition Airway Comments: Top front teeth chipped ASA Classification ASA Score: ASA 3 Emergency Case?: No NPO Status NPO Status: NPO Clears >2 hours, Solids >8 hours Anesthesia Plan Resuscitation Status: Full Code Anesthesia Technique: General Anesthesia Airway Planned: LMA Monitors Used: Standard Monitors
[2021-04-24] MEDS: HYDROmorphone 2 MG/ML VIAL 0.5 MG IVP (15:36)
[2021-04-24] MEDS: Tranexamic Acid 1,000 MG/10 ML VIAL 1000 MG (16:28)
[2021-04-24] MEDS: Ketorolac 30 MG/ML VIAL (17:04)
[2021-04-24] MEDS: Bupivacaine 0.25% Pres-Free 30 ML VIAL (17:04)
[2021-04-24] MEDS: Normal Saline 50 ML (17:04)
--- NOTE | 2021-04-24 18:53 | W.ANESPOSTOP ---
Postoperative Evaluation Date, Time and Location Date Performed: 04/24/21 Time Performed: 18:53 Patient Location: PACU Vital Signs Most Recent Imported Vital Signs: Most Recent Vital Signs Temp Pulse Resp BP Pulse Ox 36.6 C 95 H 20 153/84 H 96 04/24/21 18:41 04/24/21 18:41 04/24/21 18:41 04/24/21 18:41 04/24/21 18:41 Pain Score Most Recent Pain Score: Most Recent Pain Score Pain Level [Right Knee] 2 04/24/21 09:50 Pain Level 0 04/24/21 18:41 Assessment Mental Status: Arousable with meaningful communication Airway and Respiratory Function: Patent airway with normal (patient baseline) respiratory exam Cardiovascular Function: Hemodynamically Stable Hydration Status: Adequately Hydrated Nausea & Vomiting: No Nausea or Vomiting Pain: Pain is tolerable per patient Peripheral Nerve Block: Patient did not receive a nerve block
--- NOTE | 2021-04-24 20:46 | W.PM.OP ---
Date of service: 04/24/21 Time of Service: 18:02 Operative Note Operative Note DATE OF PROCEDURE: 04/24/21 PRE-OP DIAGNOSIS: Right Periprosthetic Knee Infection PROCEDURE: Irrigation and Debridement, Synovectomy, and Polyethylene Exchange - Right Knee SURGEON: Mendel Starr CLINICAL PSYCHOLOGIST LICENSED: Loretta Montanez ANESTHESIA TYPE: General LMA/ETT Refer to Anesthesia Record ESTIMATED BLOOD LOSS: 200 PATHOLOGY: other (1 Anaerobic and 3 Aerobic Cultures were sent to Microbiology) TOURNIQUET TIME: 0 COMPLICATIONS: None Patient was transported to: PACU Patient's condition: stable Implants: Depuy Attune 7x6mm CR/RP Polyethylene Indications: Ed is a 56-year-old almost 2 weeks status post bilateral knee replacements. Unfortunately he developed 1 day of worsening pain, swelling, and discharge. He had an obvious infection about the right knee confirmed with aspiration. Therefore, I recommended we proceed urgently with open irrigation debridement, synovectomy, and polyethylene exchange. I discussed this with him in detail. I reviewed the risk to include bleeding, persistent infection, stiffness, weakness, need for repeat procedures, blood clot. Despite these risks, he elects to proceed. Findings: There was gross purulence throughout the knee with a dehisced arthrotomy and quadriceps split. An aggressive synovectomy was performed throughout the entirety of the knee. All four material including sutures were removed. 6 L normal saline were irrigated to the knee in addition to a dilute Betadine wash. The polyethylene was exchanged. Procedure Description: Ed was greeted in the preoperative holding area where the correct side was identified and marked. The consent was reviewed with the patient and signed. The history and physical was updated. All questions were answered. Ed was taken back to the operating room. A general anesthestic was administered. The patient was placed into the supine position on the operating room table. Posts were placed for positioning during the procedure. All bony prominences were well padded. Prophylactic antibiotics in the form of Cefazolin were held until after the cultures were obtained and then they were administered. The right leg was then prepped with Betadine and draped in a standard fashion with impervious stockinette. A timeout to confirm correct identity, side and site, procedure, allergies, anesthesia, and medical concerns was performed. With the knee in some flexion, a midline incision was made overlying the knee utilizing the previous incision and excising the 2mm of skin on either side of the incision. There was gross purulence encountered that was oozing out of the central portion of the wound overlying the patella. Full thickness skin flaps were raised once the extensor mechanism was encountered. These were raised medially and laterally mostly by blunt dissection. There is an obvious defect of the quadriceps repair in the arthrotomy with gross purulence throughout. No significant signs of necrosis. Most of the tissues were easily dissected bluntly due to the recent surgery. Any bleeding was controlled with electrocautery. I then performed a complete synovectomy using Allis clamps and [place]'s, peeling the synovium from the overlying retinaculum. Is taken down throughout the lateral and medial aspects of the knee and overlying the anterior femur. Rongeur was utilized to capture any other inflammatory or unhealthy tissue from within the knee including the gutters. I then flexed the knee up translated patella laterally and used an osteotome to remove the polyethylene. I then debrided the posterior knee joint with a rongeur for any loose and inflamed tissue. The knee was then irrigated with 3 L normal saline. After this was completed a second look was performed once again removing any necrotic or inflammatory tissue from within the knee and outside of the knee. After this had been fully inspected including the posterior aspects of the knee joint, the knee was once again irrigated with another 2 L normal saline. Once again, the knee was inspected for any signs of purulence or necrosis or inflammatory changes. At this point we had a nice healthy bleeding tissue bed without any significant signs of tissue pathology. I therefore proceeded with a dilute Betadine wash, 17.5 mL of Betadine and 500 cc of normal saline. His was allowed to sit in the wound for 3 minutes where it was left undisturbed. After 3 minutes, the knee was once again irrigated with another 1 L of normal saline. The periosteal and capsular tissues were then systematically injected with a periarticular cocktail consisting of 50cc 0.25% Marcaine, 30mg Ketorolac, 20cc of Exparal. Using #1 Antimicrobial PDS, the arthrotomy and quadriceps split was repaired. This was done in interrupted fashion using [id number] and simple sutures. The tissue quality was excellent and there was great reapproximation of these tissues to each other and stable up to at least 90 degrees of flexion. There is no notable gapping of the arthrotomy site. Once again, the wound was thoroughly irrigated. Deep tissues were then reapproximated with 0 PDS and 2-0 PDS. The skin was closed with a running 3-0 Monocryl. A NIKHIL vacuum assisted dressing was applied to help promote wound healing and drainage management. This was followed with a [id number] NIKKI wrap. A CryoCuff was applied. Ed was transferred to the hospital stretcher without difficulty and suffered no apparent complication. Ed has a gaurded prognosis. He will resume Aspirin and Plavix for DVT prophylaxis. He will be on empiric coverage with Ceftriaxone and Vancomycin until speciation and sensitivities are obtained.
[2021-04-24] MEDS: cefTRIAXone 2 GM/50 ML BAG IVPB (21:09)
[2021-04-24] MEDS: Gabapentin 300 MG CAP PO (22:27)
[2021-04-24] MEDS: VANCOMYCIN 2,000 MG in Normal Saline 500 ML 250 MG IVPB (22:28)
[2021-04-24] MEDS: Ketorolac 15 MG/ML VIAL IVP (22:38)
[2021-04-25] VITALS (8 sets, daily range): BP systolic 100–167; BP diastolic 61–87; PULSE 85–98; RESP 12–19; TEMP 36.5–38.3; O2SAT 94–99
[2021-04-25] MEDS: oxyCODONE 10 MG TAB PO ×2 (02:02→16:17)
[2021-04-25] MEDS: Lactated Ringers 1,000 ML 80 ML IV ×2 (03:12→17:00)
[2021-04-25] MEDS: Ketorolac 15 MG/ML VIAL IVP ×4 (04:20→23:05)
[2021-04-25 07:24] LABS: Anion Gap 5.8 mmol/L (3-11); BUN 16 mg/dL (7-18); CO2 27.2 mmol/L (21.0-32.0); Calcium 8.2 mg/dL (8.5-10.1); Chloride 103 mmol/L (98-107); Glucose 138 mg/dL (74-106); Potassium 4.3 mmol/L (3.5-5.1); Sodium 136 mmol/L (136-145)
[2021-04-25 07:25] LABS: HCT 21.5 % (40.0-50.0); MCH 33.5 pg (27.0-33.0); MCHC 31.6 % (32.0-36.0); MCV 105.9 fL (80-95); MPV 9.6 fL (8.0-11.0); Platelet Count 325 10^3/uL (130-400); RBC 2.03 10^6/uL (4.36-5.78); RDW 13.6 % (11.8-14.1); RDW-SD 52.2 fL; WBC 14.19 10^3/uL (4.4-10.8)
[2021-04-25 07:30] LABS: HGB 6.8 g/dL (13.5-17.5)
[2021-04-25] MEDS: VANCOMYCIN/WATER (PEG) 1.25 GM/250 ML BAG IVPB ×2 (08:28→18:00)
[2021-04-25] MEDS: Acetaminophen 500 MG TAB 1000 MG PO ×3 (08:28→19:38)
[2021-04-25] MEDS: Aspirin E.C. 81 MG TABEC PO (08:29)
[2021-04-25] MEDS: Pantoprazole 40 MG TABCR PO (08:29)
[2021-04-25] MEDS: Clopidogrel 75 MG TAB PO (09:14)
--- NOTE | 2021-04-25 09:19 | INITIAL_ITS ---
- If Service Date Differs Date of service: 04/25/21 Time of Service: 09:19 Care Management Initial Assess REASON FOR HOSPITALIZATION:: Right Knee Cindi-prosthestic infection PAST MEDICAL HISTORY/PAST SURGICAL HISTORY:: All Active Problems (Updated 04/24/21 @ 15:23 by Mendel Starr MD). Infection of total right knee replacement (Acute). Osteoarthritis of left knee (Chronic). Osteoarthritis of right knee (Chronic). SVT (supraventricular tachycardia) (Chronic). Hypertension (Chronic). Medical History . Atherosclerotic heart disease of [place] coronary artery without angina pectoris. Coronary artery disease. PCI with FÉLIX to RCA 07/19/2020 [facility]. Erectile dysfunction. Family history of ischemic heart disease. GERD (gastroesophageal reflux disease). Shortness of breath. Surgical History . History of coronary artery stent placement. RCA -- 07/19/2020. History of heart artery stent. 07/2020. Hx of elbow surgery. Right lateral epicondyle debridement. 2009 PREVIOUS FUNCTIONAL STATUS/SOCIAL/FAMILY SUPPORTS:: Brown lives in [place], [place] with his . He works, drives and is independent at baseline. He does not have any services from the community. CURRENT FUNCTIONAL STATUS:: Brown was sitting up in bed when CM met with him. He was pleasant and easily engaged in conversation. He is receiving IV antibiotics and pain management for an infection in his right knee. He is 2 weeks s/p bilateral knee replacement. Brown has no concerns at this time. CM will continue to support his discharge planning needs. ADVANCE DIRECTIVES:: None on file Has patient been provided with info about the portal/API?: Yes Did the patient sign up for the portal?: Yes (Previously) CODE STATUS:: Full Code INSURANCE COVERAGE / FINANCIAL ISSUES:: [employer] CURRENT HOME/COMMUNITY SERVICES/EQUIPMENT:: Has a walker at home PRIMARY CARE PHYSICIAN:: Dr. Corona POTENTIAL DISCHARGE NEEDS:: Home IV Antibiotics (order sent to [facility]), home health nursing services ([facility]), and follow up appointments with his PCP and ortho PATIENT/FAMILY EDUCATION NEEDS:: Review discharge instructions, limitations and plan to follow up with community providers. ask me three. ANTICIPATED BARRIERS TO DISCHARGE:: None TRANSPORTATION:: via private vehicle with family PLAN:: Anticipate Edward will be discharged home with IV antibiotics (order sent to [facility]) and new [facility] RN services, when medically cleared by surgery. He will t [place] via private vehicle with family and follow up with discharge plan of care as prescribed.
[2021-04-25] MEDS: diphenhydrAMINE 25 MG CAP PO (10:31)
--- NOTE | 2021-04-25 10:59 | PHA.REVIEW ---
Pharmacy Admission Review - Admission Clinical Review (Last Reviewed 04/24/21 @ 14:40 by Mendel Starr MD) Infection of total right knee replacement (Acute) No Known Allergies Allergy (Verified 04/24/21 09:56) Resuscitation Status Full Code Height 6 ft Weight 95.4 kg - Renal Dosing Renal Dosing: BUN 16 mg/dL (7-18) 04/25/21 06:25 Creatinine 1.0 mg/dL (0.70-1.30) 04/25/21 06:25 Medications needing adjustments: Reviewed - Anticoagulation Anticoagulation: Hgb 6.8 g/dL (13.5-17.5) L* D 04/25/21 06:25 Hct 21.5 % (40.0-50.0) L D 04/25/21 06:25 Plt Count 325 10^3/uL (130-400) 04/25/21 06:25 Creatinine 1.0 mg/dL (0.70-1.30) 04/25/21 06:25 DVT Prophylaxis: N/A Therapeutic Anticoagulation: Reviewed (to be resumed when pt stable, requiring blood transfusion today) - Opiate Usage Evaluate Pain Scale/Pains Meds: Reviewed Scheduled Bowel Reg ordered if on Opiates?: No (not siva but prn, will mon) - Relevant Labs Sodium 136 mmol/L (136-145) 04/25/21 06:25 Potassium 4.3 mmol/L (3.5-5.1) 04/25/21 06:25 Chloride 103 mmol/L (98-107) 04/25/21 06:25 C-Reactive Protein 7.02 mg/dL (0.0-0.3) H 04/24/21 10:22 Electrolytes, C-Reactive P, ESR: Reviewed - DM Control DM Control: Glucose 138 mg/dL (74-106) H 04/25/21 06:25 Insulin Dosing: Reviewed - Heart Failure/LA EF%, NIKKI's, B-Blockers, Diuretics: N/A - BP Control BP Control: Blood Pressure 109/71 Blood Pressure 100/61 Blood Pressure 125/78 If elevated: Reviewed - Qtc Review If Elevated: N/A - IV to PO Switch IV Medications: Reviewed - Home Meds Home Med List reviewed: Reviewed Relevent Home Meds Not ordered & why?: all ordered - Current meds Current Medication Order Review: Reviewed (empiric abx coverage with ceftriaxone, rifampin and vanco; speciation is pending)
--- NOTE | 2021-04-25 16:24 | PT.INIE ---
Date of service: 04/25/21 Time of Service: 16:24 PT Notes Visit Reasons: R Knee Periprosthetic Infection Physical Therapy Inpatient Initial Evaluation Date: 04/25/2021 Referring Doctor: Mendel Starr MD PT Orders: PT CONSULT: S/P Ortho surgery. S/P I&D of right TKA. Recent left TKA. Precautions: WBAT on BLE with AD. Patient Profile/Admitting Diagnosis: Brown is a 56-year-old male with right periprosthetic knee infection and is status post irrigation and debridement, synovectomy, and polyethylene exchange of R TKA on postoperative day 1. Patient had bilateral total knee arthroplasty on 04/12/2021 due to persistent pain from degenerative joint disease of B knees. PMHX: All Active Problems (Updated 04/24/21 @ 15:23 by Mendel Starr MD) Infection of total right knee replacement (Acute) Osteoarthritis of left knee (Chronic) Osteoarthritis of right knee (Chronic) SVT (supraventricular tachycardia) (Chronic) Hypertension (Chronic) Medical History Atherosclerotic heart disease of [place] coronary artery without angina pectoris Coronary artery disease PCI with FÉLIX to RCA 07/19/2020 [facility] Erectile dysfunction Family history of ischemic heart disease GERD (gastroesophageal reflux disease) Shortness of breath Surgical History History of coronary artery stent placement RCA -- 07/19/2020 History of heart artery stent 07/2020 Hx of elbow surgery Right lateral epicondyle debridement 2009 Social History/Home Situation: Lives with in a private home with 2 steps to enter with 1 rail. Has a flight of steps to the second floor of the house and another flight to the cellar but he states that he will be staying on the main floor as he recovers. Independent with all aspects of ADLs prior to surgery. His Christina works as dietitian here at [employer]. She will provide needed support for him during his recuperation. Equipment Owned/DME: [facility] Subjective: Agreeable to PT consult. Complains of 9/10 in the R knee with weight bearing. Indicates that he nearly passed out on Saturday with pain in his R knee cropping up to 10/10. He elaborated that he was doing so well since surgery on 04/12/2021 and he was able to walk without any assistive device last Saturday for about 200 feet. On Saturday, he felt extreme pain in the R knee that almost made him pass out. Today, he reports 5/10 pain at rest but is agreeable to trying out getting out of bed with this PT. Objective: General Observation: NIKKI wraps to R LE. Cryocuff to Ral knee. IV to R UE. TEDS on L leg. NIKHIL wound vacuum in place in R knee. Mental Status: Alert and oriented x4 Pain: 5/10 pain in R knees at rest, 9/10 with weight bearing ROM: Right Lower Extremity: Pain with knee flexion beyond about 60 degrees. Knee extension -30 degrees. Unable to fully extend and weight bear on R knee due to pain level. Left Lower Extremity: Hip flexion WFL. Hip abduction WFL. Knee flexion 0 degrees to 100 degrees. Knee extension 100 to 0 degrees. Ankle dorsiflexion WFL. Ankle plantarflexion WFL. Strength: Right Lower Extremity: Knee flexors 3-/5. Knee extensors 3-/5. Ankle dorsiflexors 4/5. Ankle plantarflexors 4/5. Left Lower Extremity:Hip flexors 5/5. Hip abductors 5/5. Knee flexors 3-/5. Knee extensors 3-/5. Ankle dorsiflexors 5/5. Ankle plantarflexors 5/5. Sensation: Intact as to pain and light pressure in B LE Bed Mobility/Transfers: Supine to sit supervision Sit to stand contact-guard assist Stand to sit contact-guard assist Bed to chair contact-guard assist Gait: Instructed patient with short distance ambulation inside room of 8 steps using front wheeled walker with step-to gait pattern requiring. Highly favored R LE and very minimally placed weight on it due to 9/10 pain report. Denies headache, chest pain, and dizziness throughout activity. Stairs: Deferred for this session Balance: Static Sitting: Normal Dynamic Sitting: Normal Static Standing: Fair Dynamic Standing: Fair Special Tests: Mobility Limitations Standardized Measure [facility] AM-PAC 6 clicks Basic Mobility Inpatient Short Form: Raw Score: 17 CMS Score: 51% deficit Informed Consent/Education: Patient was instructed in purpose of PT consult. Assessment: Edward demonstrates significant functional mobility decline requiring the use of front wheeled walker and assistance of 1 person for all mobility ADL performance. Pain limited AROM in R knee and today's overall mobility performance. Will need to coordinate with nurse regarding premedication for pain to maximize functional performance. Patient presents with clinical signs and symptoms consistent with current/admitting diagnoses that have resulted to mobility limitations, gait instability, weakness of R knee muscles, and impairment of motor control as demonstrated by the following impairment level findings: 1. Decreased strength to R knee major muscle group 2. Impaired standing balance 3. Limitation of joint range of motion in R knee 4. Pain in R knee with WB at 9/10 Impairments are contributing to the following functional limitations: 1. Inability to safely ambulate without assistive device 2. Increase completion time for mobility ADL performance 3. Increased fall risk Patient is assessed as a 26884 moderate complexity based on the following: History: 56 [id number] with impairment level findings, functional limitations, and past medical history as indicated above Examination: Demonstrable impairment in strength, balance, and mobility level with underlying impairments and functional limitations as documented above Presentation: Evolving Decision Makin moderate complexity Goals: Goals X1 week 1. Supine-Sit independent 2. Sit-Supine independent 3. Sit-Stand independent 4. Stand-Sit independent 5. Bed-Chair independent 6. Chair-Bed independent 7. Independent gait on level surface with use of least restrictive device for at least 300 feet without report of pain nor dyspnea 8. Independent stair negotiation while holding onto bilateral rails for at least 10 steps without report of pain nor dyspnea 9. Independent with home exercise program 10. Good static and dynamic standing balance/tolerance Plan of Care/Treatment Plan: Plan of Care/Treatment Plan: 1-2x/day, 7 days/week x 1 week. Plan of care has been reviewed with the [employer] providing the service under Physical Therapy direction. Initiate Physical Therapy intervention for pain management as needed, strengthening, bed mobility, transfers, gait, stairs, balance training, and use of assistive device. DISCHARGE RECOMMENDATIONS: Home with no services [] [X] Home with services. Home when medically cleared by orthopedic surgeon. Resume outpatient PT services to facilitate return to premorbid independent community ambulation and to vocational activities without an assistive device. [] Home with outpatient PT [] [] SNF for continued rehabilitation [] [] Longterm Care [] [] SNF versus LTC based on ability to participate and progress [] TREATMENT CODE/TIME: 34371 x 20 minutes, 75752 x 10 minutes beginning at 16:24 PM. Thank you for the opportunity to participate in the care of this patient. Nasima Alegre PT, DPT, CLT [facility] [place], [place]
[2021-04-25] MEDS: HYDROmorphone 2 MG/ML VIAL 0.5 MG IVP (17:24)
--- NOTE | 2021-04-25 17:40 | PGE_ITS ---
Date of Service Date of service: 04/25/21 Time of Service: 16:41 Assessment and Plan Assessment and plan (1) Infection of total right knee replacement: Status: Acute Assessment and plan: Ed is post a day #1 status post irrigation debridement with polyethylene exchange of an infected right total knee. He is having notable pain and I do think is imperative that we stay on top of the pain at this point. I think he should rate his pain based on his motion of the knee not when he is completely at rest. It is important to get him moving at some point although the first 2 days are going to take some time. We should stay on top of the oral medications much as possible and use the IV only as necessary. His current cultures are growing staph aureus, likely not MRSA and therefore ceftriaxone 2 g daily will be the treatment of choice. We will start rifampin tomorrow for biofilm protection. Qualifiers: Encounter type: initial encounter Qualified Code(s): T84.53XA - Infection and inflammatory reaction due to internal right knee prosthesis, init ial encounter (2) Acute postoperative anemia due to expected blood loss: Status: Acute Assessment and plan: He received 1 unit packed red blood cells for hemoglobin of 6.8. Will recheck hemoglobin in the morning. Subjective Subjective Interval history since last seen: Ed continues have some pain about the right knee with any motion. However, at rest he feels be doing well. He is currently on vancomycin and ceftriaxone. He denies any fevers or chills. He did have some low blood pressure this morning with a hemoglobin of 6.8 and therefore received 1 unit of packed red blood cells. He tolerated that well. He denies any shortness of breath or chest pain. Cultures are currently growing staph aureus, I am awaiting further speciation and sensitivities. Exam Narrative Exam Narrative: Sitting up in hospital bed. No acute distress. Appears comfortable but does grimace with any attempted right knee range of motion. The right knee is inspected and the Slick wrap is removed. The jill dressing is clean dry and intact. There is significant swelling about the right knee with some mild warmth and redness but no gross erythema. No streaking. Passively I am able to flex and extend the knee for an arc of about 60 degrees without significant pain. Objective Last Vital Signs Temp 37.9 C H 04/25/21 16:50 Pulse 96 H 04/25/21 16:50 Resp 18 04/25/21 16:50 BP 167/87 H 04/25/21 16:50 Pulse Ox 99 04/25/21 16:50 Laboratory Results - last 24 hr 04/24/21 04/24/21 04/25/21 10:50 12:30 06:25 WBC RBC Hgb Hct MCV MCH MCHC RDW Plt Count MPV Sodium 136 Potassium 4.3 Chloride 103 Carbon Dioxide 27.2 Anion Gap 5.8 BUN 16 Creatinine 1.0 Estimated GFR/1.73 m2 >= 60.00 Glucose 138 H Calcium 8.2 L Fluid Source R Knee Fluid Color Red Fluid Clarity Purulent Fluid WBC 644505 Fld Polynuclear WBCs % 99 Fluid Mononuclear Cell 1 Patient ABO/Rh O Positive Antibody Screen NEGATIVE Crossmatch See Detail 04/25/21 06:25 WBC 14.19 H RBC 2.03 L Hgb 6.8 L* D Hct 21.5 L D MCV 105.9 H MCH 33.5 H MCHC 31.6 L RDW 13.6 Plt Count 325 MPV 9.6 Sodium Potassium Chloride Carbon Dioxide Anion Gap BUN Creatinine Estimated GFR/1.73 m2 Glucose Calcium Fluid Source Fluid Color Fluid Clarity Fluid WBC Fld Polynuclear WBCs % Fluid Mononuclear Cell Patient ABO/Rh Antibody Screen Crossmatch PAWSS Have you Been Recently Intoxicated or Drunk Within the Last 30 days?: No Have you Ever Experienced Previous Episodes of Alcohol Withdrawal?: No Have you ever Experienced Withdrawal Seizures?: No Have you ever Experienced Delirium Tremens(DT)s?: No Have you ever undergone Alcohol Rehabilitation Treatment (i.e, inpt ot outpatient treatment programs)?: No Have you ever Experienced Blackouts?: No Have you ever Combined Alcohol with other Downers within the last 90 days?: No Have you ever Combined Alcohol with any other Substance of Abuse during the last 90 days?: No Positive Blood Alcohol level on Presentation? [PCS.BAL]: No Evidence of Increased Autonomic Activity (i.e. HR>120, tremor, sweating, agitation, nausea)?: No Result: 0
[2021-04-25] MEDS: cefTRIAXone 2 GM/50 ML BAG IVPB (19:38)
[2021-04-25] MEDS: HYDROmorphone 2 MG/ML VIAL 1 MG IVP (19:39)
[2021-04-25] MEDS: Normal Saline Flush 10 ML SYR IVP ×2 (21:17→23:05)
[2021-04-25] MEDS: Gabapentin 300 MG CAP PO (21:17)
[2021-04-26 03:15] VITALS: BP 132/77; PULSE 109; RESP 18; TEMP 36.8; O2SAT 99
[2021-04-26] MEDS: oxyCODONE 10 MG TAB PO ×3 (03:25→12:24)
[2021-04-26] MEDS: VANCOMYCIN/WATER (PEG) 1.25 GM/250 ML BAG IVPB (03:25)
[2021-04-26] MEDS: Normal Saline Flush 10 ML SYR IVP ×5 (03:26→12:43)
[2021-04-26] MEDS: Ketorolac 15 MG/ML VIAL IVP ×2 (04:52→11:24)
[2021-04-26 05:43] LABS: HCT 22.6 % (40.0-50.0); HGB 7.2 g/dL (13.5-17.5); MCH 31.2 pg (27.0-33.0); MCHC 31.9 % (32.0-36.0); MCV 97.8 fL (80-95); MPV 9.6 fL (8.0-11.0); Platelet Count 284 10^3/uL (130-400); RBC 2.31 10^6/uL (4.36-5.78); RDW 17.2 % (11.8-14.1); RDW-SD 60.9 fL
[2021-04-26 05:54] LABS: BUN 15 mg/dL (7-18); C-Reactive Protein 21.56 mg/dL (0.0-0.3); CREATININE 0.9 mg/dL (0.70-1.30); Calcium 7.9 mg/dL (8.5-10.1); Chloride 103 mmol/L (98-107); Glucose 112 mg/dL (74-106); Potassium 3.8 mmol/L (3.5-5.1); Sodium 136 mmol/L (136-145)
[2021-04-26 07:00] VITALS: BP 117/62; PULSE 108; RESP 16; TEMP 37.1; O2SAT 96
[2021-04-26] MEDS: Acetaminophen 500 MG TAB 1000 MG PO ×2 (07:43→13:47)
[2021-04-26] MEDS: rifAMPin 300 MG CAP PO (07:43)
[2021-04-26] MEDS: Metoprolol CR 50 MG TABCR PO (07:44)
[2021-04-26] MEDS: Pantoprazole 40 MG TABCR PO (07:44)
[2021-04-26] MEDS: Aspirin E.C. 81 MG TABEC PO (07:44)
[2021-04-26] MEDS: Clopidogrel 75 MG TAB PO (07:44)
[2021-04-26] MEDS: amLODIPine 5 MG TAB PO (07:44)
--- NOTE | 2021-04-26 08:51 | CMPROGNOTE_ITS ---
- If Service Date Differs Date of service: 04/26/21 Time of Service: 08:51 Care Management Progress Note S/O: Brown would like to be discharged home today. He will need IV ceftriaxone X 6 weeks. IV equipment through [facility] will arrive at his home by 9pm tonight and the [facility]NA will be at his home at 2pm tomorrow. CM will continue to support discharge planning needs. A: 56 year old male admitted to [facility] on 04/24/21 for Right Knee periprosthetic infection P: Anticipate Ednasima will be discharged home when medically cleared by surgery via private vehicle with family. He will need home IV antibiotics X 6 weeks. [facility] will deliver equipment by 9pm tonight. He will also receive new [facility]NA RN/PT services (lives in [place]) through [facility]. He will follow up with surgeon and discharge plan of care as prescribed.
--- NOTE | 2021-04-26 10:13 | PT.INDS ---
Date of service: 04/26/21 Time of Service: 10:13 PT Notes Visit Reasons: R Knee Periprosthetic Infection Physical Therapy Inpatient Discharge Summary Date: 04/26/2021 Dates of service: 04/25/2021 through 04/26/2021 Referring Doctor: Mendel Starr MD PT Orders: PT CONSULT: S/P Ortho surgery. S/P I&D of right TKA. Recent left TKA. Precautions: WBAT on BLE with AD. Patient Profile/Admitting Diagnosis: Brown is a 56-year-old male with right periprosthetic knee infection and is status post irrigation and debridement, synovectomy, and polyethylene exchange of R TKA on postoperative day 2. Patient had bilateral total knee arthroplasty on 04/12/2021 due to persistent pain from degenerative joint disease of B knees. PMHX: All Active Problems (Updated 04/24/21 @ 15:23 by Mendel Starr MD) Infection of total right knee replacement (Acute) Osteoarthritis of left knee (Chronic) Osteoarthritis of right knee (Chronic) SVT (supraventricular tachycardia) (Chronic) Hypertension (Chronic) Medical History Atherosclerotic heart disease of [place] coronary artery without angina pectoris Coronary artery disease PCI with FÉLIX to RCA 07/19/2020 RH Erectile dysfunction Family history of ischemic heart disease GERD (gastroesophageal reflux disease) Shortness of breath Surgical History History of coronary artery stent placement RCA -- 07/19/2020 History of heart artery stent 07/2020 Hx of elbow surgery Right lateral epicondyle debridement 2009 Social History/Home Situation: Lives with in a private home with 2 steps to enter with 1 rail. Has a flight of steps to the second floor of the house and another flight to the cellar but he states that he will be staying on the main floor as he recovers. Independent with all aspects of ADLs prior to surgery. His Christina works as dietitian here at [employer]. She will provide needed support for him during his recuperation. Equipment Owned/DME: [facility] Subjective: Agreeable to PT session. Reports much more tolerable pain level today compared to yesterday. Hopeful that he can go home today and recover at home. Objective: General Observation: NIKKI wraps to R LE. Cryocuff to Ral knee. IV to R UE. TEDS on L leg. NIKHIL wound vacuum in place in R knee. Mental Status: Alert and oriented x4 Pain: 5/10 pain in R knees at rest, 9/10 with weight bearing ROM: Right Lower Extremity: Pain with knee flexion beyond about 60 degrees. Knee extension -30 degrees. Unable to fully extend and weight bear on R knee due to pain level. Left Lower Extremity: Hip flexion WFL. Hip abduction WFL. Knee flexion 0 degrees to 100 degrees. Knee extension 100 to 0 degrees. Ankle dorsiflexion WFL. Ankle plantarflexion WFL. Strength: Right Lower Extremity: Knee flexors 3-/5. Knee extensors 3-/5. Ankle dorsiflexors 4/5. Ankle plantarflexors 4/5. Left Lower Extremity:Hip flexors 5/5. Hip abductors 5/5. Knee flexors 3-/5. Knee extensors 3-/5. Ankle dorsiflexors 5/5. Ankle plantarflexors 5/5. Sensation: Intact as to pain and light pressure in B LE Bed Mobility/Transfers: Supine to sit supervision Sit to stand supervision Stand to sit supervision Bed to chair supervision Gait: Instructed patient with level surface ambulation of 250 feet using front-wheeled walker with step-to gait pattern requiring. Able to perform WBAT on R LE today with increased right knee extension at R mid stance. Denies headache, chest pain, and dizziness throughout activity. Stairs: Patient negotiated 6 x 4 inch steps while holding onto bilateral rails with step to gait pattern requiring only supervision. Balance: Static Sitting: Normal Dynamic Sitting: Normal Static Standing: Fair Dynamic Standing: Fair Assessment: Edward demonstrates significant functional mobility decline requiring the use of front wheeled walker for all mobility ADL performance. Pain limited AROM in R knee and today's overall mobility performance. Will need to coordinate with nurse regarding premedication for pain to maximize functional performance. Patient presents with clinical signs and symptoms consistent with current/admitting diagnoses that have resulted to mobility limitations, gait instability, weakness of R knee muscles, and impairment of motor control as demonstrated by the following impairment level findings: 1. Decreased strength to R knee major muscle group 2. Impaired standing balance 3. Limitation of joint range of motion in R knee 4. Pain in R knee with WB at 5-6/10 that subsies with rest Impairments are contributing to the following functional limitations: 1. Inability to safely ambulate without assistive device 2. Increase completion time for mobility ADL performance 3. Increased fall risk Goals: Goals X1 week 1. Supine-Sit independent NOT MET 2. Sit-Supine independent NOT MET 3. Sit-Stand independent NOT MET 4. Stand-Sit independent NOT MET 5. Bed-Chair independent NOT MET 6. Chair-Bed independent NOT MET 7. Independent gait on level surface with use of least restrictive device for at least 300 feet without report of pain nor dyspnea NOT MET 8. Independent stair negotiation while holding onto bilateral rails for at least 10 steps without report of pain nor dyspnea NOT MET 9. Independent with home exercise program NOT MET 10. Good static and dynamic standing balance/tolerance NOT MET DISCHARGE RECOMMENDATIONS: Home with no services [] [X] Home with services. Home when medically cleared by orthopedic surgeon. Resume outpatient PT services to facilitate return to premorbid independent community ambulation and to vocational activities without an assistive device. [] Home with outpatient PT [] [] SNF for continued rehabilitation [] [] [facility] [] [] SNF versus LTC based on ability to participate and progress [] TREATMENT CODE/TIME: 80833 x 26 minutes beginning at 10:13 AM. Thank you for the opportunity to participate in the care of this patient. Nasima Alegre PT, DPT, CLT [facility] [place], [place]
[2021-04-26 11:31] VITALS: BP 120/77; PULSE 88; RESP 18; TEMP 37.5; O2SAT 100
--- NOTE | 2021-04-26 12:21 | DSE_ITS ---
Date of service: 04/26/21 Time of Service: 12:21 DS: Diagnosis Discharge Diagnosis (1) Infection of total right knee replacement: Status: Acute (2) Acute postoperative anemia due to expected blood loss: Status: Acute Discharge Plan Disposition Patient Disposition: HOME Condition: Improving Discharge Details Reason For Visit: R Knee Periprosthetic Infection Admit Date/Time: 04/24/21 10:20 Admit Provider: Mendel Starr Attending Provider: Mendel Starr Primary Care Provider: Unknown,Unknown Hospital Course Hospital Course: Had presented to the emergency department with a swollen and painful right knee. He had drainage and it was clearly infected. This was confirmed with a spiration. He was admitted from the emergency department directly to the operating room for irrigation and debridement and polyethylene exchange. His initial cultures began growing MSSA as at his first set of blood cultures. One of 2-second sets of blood cultures also became positive and a repeat 3rd set was performed. He noted improvement with pain on postop day #2 and was able to mobilize independently. His pain was controlled oral regimens. His antibiotic regimen was switched to ceftriaxone 2 g daily and a midline was placed. He is voiding spontaneously. Home Meds and New Rx's Prescriptions: New rifampin 300 mg capsule 300 mg PO BID Qty: 60 RF: 5 Continued metoprolol succinate 25 mg tablet extended release 24 hr 50 mg PO DAILY RF: 0 amlodipine 5 mg tablet 5 mg PO DAILY RF: 0 clopidogrel 75 mg tablet 75 mg PO DAILY Qty: 90 RF: 1 sildenafil 50 mg tablet 50 mg PO DAILY RF: 0 docusate sodium [Colace] 100 mg capsule 100 mg PO BID Qty: 30 RF: 0 gabapentin 300 mg capsule 300 mg PO QHS Qty: 14 RF: 0 celecoxib [Celebrex] 200 mg capsule 200 mg PO BID Qty: 30 RF: 0 acetaminophen 500 mg tablet 1,000 mg PO Q8H PRN Qty: 90 RF: 0 pantoprazole 40 mg Tablet,Delayed Release (Dr/Ec) 40 mg PO DAILY Qty: 30 RF: 2 aspirin 81 mg Tablet,Delayed Release (Dr/Ec) 81 mg PO DAILY RF: 0 Changed oxycodone 10 mg tablet 10 mg PO Q4H MDD 40mg PRN (Reason: pain) Qty: 30 RF: 0 Discharge Instructions Additional Instructions: Total Knee Discharge Instructions Activity: The most important activity is to walk and move. You should try to take short walks a few times a day. It is important that when resting you work on keeping the knee straight as straight as possible and slowly avoid putting a pillow behind the knee as this will encourage flexion. Work on range of motion exercises as provided by Physical Therapy and try to increase what you do as your pain and swelling improves. The main focus is activating your quadriceps and working on getting the knee straight. You may weight bear as tolerated. - You will have home health physical therapy Dressing: Keep the surgical dressing (NIKHIL) in place for one week. If the li ghts turn red or it gets soiled you may remove it and replace it with a Mepilex dressing which you were sent home with. The wound and dressing may get wet after 3 days but avoid soaking the dressing or otherwise it will need to be changed. Many people prefer covering the dressing with cling wrap (saran wrap) to minimize it from getting soaked. If it gets wet, just pat dry. If it starts to peel off then it will need to be changed. Keep covered with the Mepilex until your follow-up appointment. Medications: - You should take Tylenol and anti-inflammatory Celebrex as your primary pain control medications. - You have been prescribed a stronger pain medication Oxycodone for breakthrough pain, take as needed as prescribed. - You have also been prescribed a stomach acid reduction agent Pantoprozole to help reduce stomach acid and reflux. - You will be taking Aspirin 81mg twice a day for DVT prevention unless instructed otherwise. - If you have constipation you should take Colace or Miralax (both [id number]). It takes most people 3-4 days to have a bowel movement. - ANTIBIOTICS: You will be given Rifampin 300mg twice daily. This will be taken orally for 3 months. The Ceftriaxone will be administered in the IV daily for 6 weeks and then switched to an oral antibiotic. You will also have weekly labs drawn to monitor progress. Follow-up: 1 week for midline exchange to PICC line. 4 week follow-up with Dr. Starr. If you have any acute concerns or questions, please do not hesitate to contact the office at [phone]. You may contact Dr. Starr with any questions after hours through the hospital at [phone] or on his cell phone at [phone]. Stand Alone Forms: Nursing Discharge Form Referrals: Marcus Corona [ [facility] STAFF PHYSICIAN] - 05/03/21 10:30 am Activity:: Activity as Tolerated Equipment/Supplies:: No Equipment Needed Diet:: As Tolerated Discharge Orders Discharge Orders: Discharge Order (Routine); Ordered 04/26/21 Ordered By: Mendel Starr DS: Summary Time Spent with Patient providing and/or coordinating discharge services: Less than 30 minutes Status at Discharge Functional status at discharge: uses cane/walker Overall status at discharge: patient is progressing back to baseline Mental Status: mental status grossly normal Speech and Movement: speech and movement normal Mood: congruent mood Affect: normal affect Exam Const General: cooperative, healthy appearing, comfortable and no acute distress Extrem Other: Right knee with dressing intact, clean and dry. He toelrates passive motion with minimal pain but notable pain with active knee extension. Knee is warm and swollen but compressible. No streaking. +ADF/APF/EHL/FHL. SILT DP/PT/Tib. Psych Mental Status: mental status grossly normal Speech and Movement: speech and movement normal Mood: congruent mood Affect: normal affect DS: Data Vitals/I&O Vitals and I&O: Vital Signs Temperature 37.5 C 04/26/21 11:31 Temperature Source Tympanic 04/26/21 11:31 Pulse 88 04/26/21 11:31 Pulse Rhythm Regular 04/26/21 07:30 Respiratory Rate 18 04/26/21 11:31 Respiratory Effort Non-Labored 04/26/21 07:30 Respiratory Depth Normal 04/26/21 07:30 Respiratory Pattern Normal 04/26/21 07:30 Blood Pressure 120/77 04/26/21 11:31 Blood Pressure Position Sitting 04/24/21 09:42 Pulse Oximetry 100 04/26/21 11:31 Respiratory End-tidal CO2 38 04/24/21 18:56 Oxygen Delivery Method Room Air 04/26/21 11:31 Oxygen Flow Rate 0 04/26/21 11:31 Pain Level 6 04/26/21 11:31 Comment 04/24/21 09:42 Intake & Output 04/25/21 04/26/21 04/26/21 23:59 11:59 23:59 Intake Total 1861 / 2821 1460 / 1460 Output Total 400 / 1000 575 / 575 Balance 1461 / 1821 885 / 885 Intake: IV 1310 / 2070 1260 / 1260 Oral 200 / 400 200 / 200 Blood Product 351 / 351 Rbc Leuko Reduced Unit 351 / 351 [id number] Output: Urine 400 / 1000 575 / 575 Other: Urine Color Yellow Yellow Urine Appearance Clear Cloudy Urine Odor Normal Normal Voiding Methods Urinal Urinal Data Completed and Pending Labs on day of discharge: Labs from last 24 hours 04/26/21 04/26/21 04/26/21 13:00 11:00 05:22 WBC 8.60 D RBC 2.31 L Hgb 7.2 L Hct 22.6 L MCV 97.8 H D MCH 31.2 MCHC 31.9 L RDW 17.2 H Plt Count 284 MPV 9.6 Sodium Potassium Chloride Carbon Dioxide Anion Gap BUN Creatinine Estimated GFR/1.73 m2 Glucose Calcium C-Reactive Protein Vancomycin Trough Cancelled Cancelled Path Cons Comment Crossmatch 04/26/21 04/24/21 04/24/21 05:22 12:30 10:50 WBC RBC Hgb Hct MCV MCH MCHC RDW Plt Count MPV Sodium 136 Potassium 3.8 Chloride 103 Carbon Dioxide 25.0 Anion Gap 8.0 BUN 15 Creatinine 0.9 Estimated GFR/1.73 m2 >= 60.00 Glucose 112 H Calcium 7.9 L C-Reactive Protein 21.56 H Vancomycin Trough Path Cons Comment SEE COMMENT Crossmatch See Detail 04/26/21 12:18 Blood Blood Culture - Pending 04/26/21 12:18 Blood Blood Culture - Pending Preliminary micro results at discharge 04/26/21 12:18 Blood Culture - Pending Blood 04/26/21 12:18 Blood Culture - Pending Blood 04/25/21 07:45 Blood Culture - Preliminary Blood Gram Positive Cocci 04/24/21 10:34 Blood Culture - Preliminary Blood Staphylococcus Aureus 04/24/21 10:22 Blood Culture - Preliminary Blood Staphylococcus Aureus 04/25/21 07:36 Blood Culture - Preliminary Blood NO GROWTH 24 HOURS 04/24/21 12:30 Body Fluid Culture - Preliminary Synovial - Right Knee Staphylococcus Aureus PFSH All Active Problems Acute postoperative anemia due to expected blood loss (Acute) Infection of total right knee replacement (Acute) Osteoarthritis of left knee (Chronic) Osteoarthritis of right knee (Chronic) SVT (supraventricular tachycardia) (Chronic) Hypertension (Chronic) Medical History Atherosclerotic heart disease of [place] coronary artery without angina pectoris Coronary artery disease PCI with FÉLIX to RCA 07/19/2020 RH Erectile dysfunction Family history of ischemic heart disease GERD (gastroesophageal reflux disease) Shortness of breath Surgical History History of coronary artery stent placement RCA -- 07/19/2020 History of heart artery stent 07/2020 Hx of elbow surgery Right lateral epicondyle debridement 2009 Family History Mother Scleroderma Maternal Grandfather Myocardial infarction Uncle Myocardial infarction Uncle Myocardial infarction Social History Smoking/Tobacco Use Status: Never Smoking risk assessment performed?: Yes Alcohol Intake: current Alcohol Intake frequency: 0-2 drinks per day Alcohol type: beer and hard liquor Drug use: Never Substance use type: does not use Household members: spouse current occupation: travels for work to [employer] Current gender identity: male Do you feel safe at home: Yes Do you feel safe in your relationship?: Yes
[2021-04-26] MEDS: cefTRIAXone 2 GM/50 ML BAG IVPB (12:43)
--- NOTE | 2021-04-26 14:13 | CMDISCH_ITS ---
- If Service Date Differs Date of service: 04/26/21 Time of Service: 14:14 LACE Index Scoring Tool - Questions: Length of Stay (in days): 2 Acuity (Admit via E.D.?): Yes Comorbidities: Congestive Heart Failure E.D. Visits: 3 - Answers: Total Score: 10 Risk of Readmission: High Risk Care Management Discharge Reason for Hospitalization: Right Knee Cindi-prosthestic infection Discharge Plan: Discharge home with Mack SALCEDOA RN/PT services and h ome IV antibiotics through [facility]. He will transport via private vehicle with his and follow up with his discharge plan of care as prescribed. Patient/Family Education Needs: Review discharge instructions, medications, limitations and plan to follow up with community providers. ask me three. Services Needed at Discharge: Home Health Care Services (RN/PT services through the [facility], coordinated by [facility]), Infusion Therapy (through [facility], coordinated by [facility])
--- NOTE | 2021-04-26 14:39 | W.ANESVAS ---
Midline Placement Date Performed: 04/26/21 Procedure Time: 14:39 Requesting Provider: Ro Procedure Location: Med/Surg Sedation Given (Indicate Dose Given): No Sedation given Patient Mental Status: Awake Sterility: Hand Hygiene, Surgical Cap, Surgical Mask, Sterile Gloves, Sterile Drape/Sheet, Eye Protection and Chlorhexidine Laterality: Left Insertion Site: Basilic Midline Device: PowerGlide Pro 20G Catheter Length: 10 cm Midline Procedure Procedure: 1% Lidocaine to skin and subcutaneous tissue with 25g needle, Vessel accessed with needle, Vessel accessed with catheter over needle, Guidewire placed with ease, Catheter placed without resistance and Guidewire removed Dressing: Tegaderm Applied and Statlock Applied Blood Return: Present Flushes: Easily Ultrasound: Sterile probe cover and gel used Ultrasound Image Saved?: Yes Number of Attempts (See previous attempts in note section): 1 Procedure Tolerated: No Complications and Patient tolerated well Procedure Outcome: Successful Performed By: Ever Maher
== END 2021-04-26 16:02 | disposition home or self-care (01) | DRG 467 ==
LOC: ER 10:31 → MS 12:40
PROVIDERS: Admitting Provider Student in an Organized Health Care Education/Training Program; Emergency Provider Physician Assistant; Visit Provider Student in an Organized Health Care Education/Training Program
PROC: 0SPC0LZ Removal of Medial Unicondylar Synthetic Substitute from Right Knee Joint, Open Approach (ICD-10-PCS; CPT 27486; principal; 2021-04-24 16:00)
DX: T84.53XA Infection and inflammatory reaction due to internal right knee prosthesis, initial encounter (principal); I47.1 Supraventricular tachycardia; D62 Acute posthemorrhagic anemia; I10 Essential (primary) hypertension; I25.10 Atherosclerotic heart disease of native coronary artery without angina pectoris; K21.9 Gastro-esophageal reflux disease without esophagitis; B95.61 Methicillin susceptible Staphylococcus aureus infection as the cause of diseases classified elsewhere
CPT/HCPCS: 27486; 36415; 36430; 80048; 80053; 85027; 86850; 86900; 86901; 86920; 87040; 87077; 87635; 97162; 97530; 99285; 73560; 80202; 83605; 85025; 86140; 87070; 87075; 87186; 87205; 89051; J0690; J1100; J1885; J2250; J2405; J2704; J3490; P9016

== ENCOUNTER 2021-05-02 10:30 | Outpatient (RCR) | payer BC, SELFPAY ==
[2021-05-02] MEDS: Bacitracin 1 PACKET (10:30)
[2021-05-02 10:59] LABS: Abs Immature Grans 0.04 10^3/uL (0.0-0.06); Absolute Basophil Count 0.05 10^3/uL (0.0-0.2); Absolute Eosinophil Count 0.34 10^3/uL (0.0-0.7); Absolute Lymphocyte Count 1.28 10^3/uL (1.2-3.4); Basophils % 0.8; Eosinophils % 5.2; HCT 25.1 % (40.0-50.0); Immature Grans % 0.6; Lymphocytes % 19.7; MCHC 31.9 % (32.0-36.0); MCV 97.3 fL (80-95); MPV 9.3 fL (8.0-11.0); Monocytes % 13.8; Neutrophils % 59.9; Nucleated RBC 0 %; Platelet Count 523 10^3/uL (130-400); RBC 2.58 10^6/uL (4.36-5.78); RDW 15.6 % (11.8-14.1); RDW-SD 54.9 fL; WBC 6.51 10^3/uL (4.4-10.8)
[2021-05-02 11:01] LABS: ESR 49 mm/hr (0-20)
[2021-05-02 11:07] LABS: BUN 8 mg/dL (7-18); C-Reactive Protein 8.64 mg/dL (0.0-0.3); CREATININE 0.7 mg/dL (0.70-1.30); Calcium 8.6 mg/dL (8.5-10.1); Chloride 101 mmol/L (98-107); Glucose 106 mg/dL (74-106); Potassium 4.3 mmol/L (3.5-5.1); Sodium 134 mmol/L (136-145)
== END 2021-05-12 23:59 | disposition home or self-care (01) ==
LOC: INF 10:30
PROVIDERS: Visit Provider Student in an Organized Health Care Education/Training Program
DX: T84.53XA Infection and inflammatory reaction due to internal right knee prosthesis, initial encounter (principal); Z45.2 Encounter for adjustment and management of vascular access device
CPT/HCPCS: 36569; 36592; 80048; 85652; 85025; 86140

== ENCOUNTER 2021-05-02 11:48 | Outpatient (CLI) | payer BC, SELFPAY ==
--- NOTE | 2021-05-02 10:30 | DI.CT_ITS ---
Exam(s) CT LOWER EXTREMITY RT W EXAM: CT LOWER EXTREMITY RT W CLINICAL HISTORY: focal swelling and pain of mid thigh - h/o bactere. TECHNIQUE: Imaging Protocol: Axial computed tomography images with coronal and sagittal reformatted images were created and reviewed. CONTRAST MATERIAL: Intravenous: Omnipaque 350. Contrast Volume: 100 ML COMPARISON: CR XR KNEE RT 2V AP,LAT from 04/24/2021 FINDINGS: There is artifact from the patient's right total knee replacement. Bones: The osseous structures are intact. Bony alignment is satisfactory. No osteomyelitic changes are identified. The patient has a right total knee replacement. No lytic or sclerotic lesions are identified. Soft Tissues: There are peripherally enhancing fluid collections in the suprapatellar region. There is seen interposed between the muscles of the anterior thigh. There is a component which is superfi cial to the anterior musculature just above the patella. It measures 9 cm craniocaudad by 1.7 cm AP. There is edema seen in the soft tissues around the knee. IMPRESSION: 1. Findings of a right total knee replacement. This does limit the examination secondary to artifact . 2. Peripherally enhancing fluid collections in the suprapatellar soft tissues of the anterior thigh. The findings are suspicious for abscesses. 3. No findings to suggest osteomyelitis. RADIATION DOSE DELIVERED: 751.29mGy.cm Total DLP DATA REPOSITORY: All CT scans at this facility are submitted to the National Radiology Data Registry (NRDR) Dose Index Registry (DIR) with the [employer] ([employer]). RADIATION OPTIMIZATION: All CT scans at this facility use at least one of these dose optimization te chniques: automated exposure control; mA and/or kV adjustment per patient size (includes targeted exa ms where dose is matched to clinical indication); or iterative reconstruction.
[2021-05-02] MEDS: Omnipaque 350 MG/ML 100 ML BTL IJ (12:08)
== END 2021-05-02 12:08 ==
PROVIDERS: Visit Provider Student in an Organized Health Care Education/Training Program
DX: T84.53XA Infection and inflammatory reaction due to internal right knee prosthesis, initial encounter (principal); R22.41 Localized swelling, mass and lump, right lower limb
CPT/HCPCS: 73701; J3490

== ENCOUNTER 2021-05-03 12:26 | Day surgery (SDC) | payer BC, SELFPAY ==
--- NOTE | 2021-05-03 12:05 | W.PM.DS.N ---
Documented by User: Loretta Haquexon 05/03/21 12:07 DS: Diagnosis Discharge Diagnosis (1) Abscess of right thigh: Status: Acute (2) Infection of total right knee replacement: Status: Acute Discharge Plan Disposition Patient Disposition: HOME Condition: Good Discharge Details Reason For Visit: Right thigh abscess Attending Provider: Mendel Starr Primary Care Provider: Unknown,Unknown Home Meds and New Rx's Prescriptions: New cyclobenzaprine 5 mg tablet 5 mg PO TID PRNQty: 15 RF: 0 Continued metoprolol succinate 25 mg tablet extended release 24 hr 50 mg PO DAILY RF: 0 amlodipine 5 mg tablet 5 mg PO DAILY RF: 0 sildenafil 50 mg tablet 50 mg PO DAILY RF: 0 docusate sodium [Colace] 100 mg capsule 100 mg PO BID Qty: 30 RF: 0 acetaminophen 500 mg tablet 1,000 mg PO Q8H PRN Qty: 90 RF: 0 pantoprazole 40 mg Tablet,Delayed Release (Dr/Ec) 40 mg PO DAILY Qty: 30 RF: 2 rifampin 300 mg capsule 300 mg PO BID Qty: 60 RF: 5 celecoxib [Celebrex] 200 mg capsule 200 mg PO BID Qty: 60 RF: 2 oxycodone 10 mg tablet 10 mg PO Q4H MDD 40mg PRN (Reason: pain) Qty: 30 RF: 0 Discontinued gabapentin 300 mg capsule 300 mg PO QHS Qty: 14 RF: 0 No Action clopidogrel 75 mg tablet 75 mg PO DAILY Qty: 90 RF: 1 aspirin 81 mg Tablet,Delayed Release (Dr/Ec) 81 mg PO DAILY RF: 0 Discharge Instructions Additional Instructions: Total Knee Discharge and Washout Instructions Activity: The most important activity is to walk and move. You should try to take short walks a few times a day. It is important that when resting you work on keeping the knee straight as straight as possible and slowly avoid putting a pillow behind the knee as this will encourage flexion. Work on range of motion exercises as provided by Physical Therapy and try to increase what you do as your pain and swelling improves. The main focus is activating your quadriceps and working on getting the knee straight. You may weight bear as tolerated. - You will have home health physical therapy and nursing Dressing: Keep the surgical dressing (NIKHIL) in place for one week. If the lights turn red or it gets soiled you may remove it and replace it with a Mepilex dressing which you were sent home with. The wound and dressing may get wet after 3 days but avoid soaking the dressing or otherwise it will need to be changed. Many people prefer covering the dressing with cling wrap (saran wrap) to minimize it from getting soaked. If it gets wet, just pat dry. If it starts to peel off then it will need to be changed. Keep covered with the Mepilex until your follow-up appointment. Medications: - You should take Tylenol and anti-inflammatory Celebrex as your primary pain control medications. - You have been prescribed a stronger pain medication Oxycodone for breakthrough pain, take as needed as prescribed. - You have also been prescribed a stomach acid reduction agent Pantoprozole to help reduce stomach acid and reflux. - You will be taking Aspirin 81mg twice a day for DVT prevention unless instructed otherwise. - You also have been started on Cyclobenzaprine for muscle cramps. YOu may also use some heat and massage to the muscles of the thigh and calf. - If you have constipation you should take Colace or Miralax (both [id number]). It takes most people 3-4 days to have a bowel movement. - ANTIBIOTICS: You should continue Rifampin 300mg twice daily. This will be taken orally for 3 months. The Ceftriaxone will be administered in the IV daily for 6 weeks and then switched to an oral antibiotic. You will also have weekly labs drawn to monitor progress. Follow-up: 10-[address] Starr If you have any acute concerns or questions, please do not hesitate to contact the office at [phone]. You may contact Dr. Starr with any questions after hours through the hospital at [phone] or on his cell phone at [phone]. Referrals: Mendel Starr MD [ [facility] STAFF PHYSICIAN] - Activity:: Elevate Remove Dressings/Wound Care:: Do Not Remove Shower/Bathe:: Cover Diet:: As Tolerated Discharge Orders Discharge Orders: Discharge Order (Routine); Ordered 05/03/21 Ordered By: Mendel Starr DS: Data Vitals/I&O Vitals and I&O: Intake & Output 05/02/21 05/03/21 05/03/21 23:59 11:59 23:59 Weight 92.986 kg PFSH All Active Problems Osteoarthritis of left knee (Chronic) Osteoarthritis of right knee (Chronic) SVT (supraventricular tachycardia) (Chronic) Hypertension (Chronic) Infection of total right knee replacement (Acute) Acute postoperative anemia due to expected blood loss (Acute) Abscess of right thigh (Acute) Medical History Atherosclerotic heart disease of [place] coronary artery without angina pectoris Coronary artery disease PCI with FÉLIX to RCA 07/19/2020 [facility] Erectile dysfunction Family history of ischemic heart disease GERD (gastroesophageal reflux disease) Shortness of breath Surgical History (Updated 05/03/21 @ 12:56 by Rajni Bentley) History of coronary artery stent placement RCA -- 07/19/2020 History of heart artery stent 07/2020 History of total knee arthroplasty bilateral Hx of elbow surgery Right lateral epicondyle debridement 2009 Family History Mother Scleroderma Maternal Grandfather Myocardial infarction Uncle Myocardial infarction Uncle Myocardial infarction Social History Smoking/Tobacco Use Status: Never Smoking risk assessment performed?: Yes Alcohol Intake: current Alcohol Intake frequency: 0-2 drinks per day Alcohol type: beer and hard liquor Drug use: Never Substance use type: does not use Details: alcohol: march Household members: spouse current occupation: travels for work to [employer] Current gender identity: male Do you feel safe at home: Yes Do you feel safe in your relationship?: Yes Documented by User: Mendel Starr MD 05/03/21 15:18 Discharge Plan Disposition Patient Disposition: HOME Condition: Good Discharge Details Reason For Visit: Right thigh abscess Attending Provider: Mendel Starr Primary Care Provider: Unknown,Unknown Home Meds and New Rx's Prescriptions: New cyclobenzaprine 5 mg tablet 5 mg PO TID PRNQty: 15 RF: 0 Continued metoprolol succinate 25 mg tablet extended release 24 hr 50 mg PO DAILY RF: 0 amlodipine 5 mg tablet 5 mg PO DAILY RF: 0 sildenafil 50 mg tablet 50 mg PO DAILY RF: 0 docusate sodium [Colace] 100 mg capsule 100 mg PO BID Qty: 30 RF: 0 acetaminophen 500 mg tablet 1,000 mg PO Q8H PRN Qty: 90 RF: 0 pantoprazole 40 mg Tablet,Delayed Release (Dr/Ec) 40 mg PO DAILY Qty: 30 RF: 2 rifampin 300 mg capsule 300 mg PO BID Qty: 60 RF: 5 celecoxib [Celebrex] 200 mg capsule 200 mg PO BID Qty: 60 RF: 2 oxycodone 10 mg tablet 10 mg PO Q4H MDD 40mg PRN (Reason: pain) Qty: 30 RF: 0 Discontinued gabapentin 300 mg capsule 300 mg PO QHS Qty: 14 RF: 0 No Action clopidogrel 75 mg tablet 75 mg PO DAILY Qty: 90 RF: 1 aspirin 81 mg Tablet,Delayed Release (Dr/Ec) 81 mg PO DAILY RF: 0 Discharge Instructions Additional Instructions: Total Knee Discharge and Washout Instructions Activity: The most important activity is to walk and move. You should try to take short walks a few times a day. It is important that when resting you work on keeping the knee straight as straight as possible and slowly avoid putting a pillow behind the knee as this will encourage flexion. Work on range of motion exercises as provided by Physical Therapy and try to increase what you do as your pain and swelling improves. The main focus is activating your quadriceps and working on getting the knee straight. You may weight bear as tolerated. - You will have home health physical therapy and nursing Dressing: Keep the surgical dressing (NIKHIL) in place for one week. If the lights turn red or it gets soiled you may remove it and replace it with a Mepilex dressing which you were sent home with. The wound and dressing may get wet after 3 days but avoid soaking the dressing or otherwise it will need to be changed. Many people prefer covering the dressing with cling wrap (saran wrap) to minimize it from getting soaked. If it gets wet, just pat dry. If it starts to peel off then it will need to be changed. Keep covered with the Mepilex until your follow-up appointment. Medications: - You should take Tylenol and anti-inflammatory Celebrex as your primary pain control medications. - You have been prescribed a stronger pain medication Oxycodone for breakthrough pain, take as needed as prescribed. - You have also been prescribed a stomach acid reduction agent Pantoprozole to help reduce stomach acid and reflux. - You will be taking Aspirin 81mg twice a day for DVT prevention unless instructed otherwise. - You also have been started on Cyclobenzaprine for muscle cramps. YOu may also use some heat and massage to the muscles of the thigh and calf. - If you have constipation you should take Colace or Miralax (both [id number]). It takes most people 3-4 days to have a bowel movement. - ANTIBIOTICS: You should continue Rifampin 300mg twice daily. This will be taken orally for 3 months. The Ceftriaxone will be administered in the IV daily for 6 weeks and then switched to an oral antibiotic. You will also have weekly labs drawn to monitor progress. Follow-up: 10-[address] Starr If you have any acute concerns or questions, please do not hesitate to contact the office at [phone]. You may contact Dr. Starr with any questions after hours through the hospital at [phone] or on his cell phone at [phone]. Referrals: Mendel Starr MD [ [facility] STAFF PHYSICIAN] - Activity:: Elevate Remove Dressings/Wound Care:: Do Not Remove Shower/Bathe:: Cover Diet:: As Tolerated Discharge Orders Discharge Orders: Discharge Order (Routine); Ordered 05/03/21 Ordered By: Mendel Starr DS: Summary Time Spent with Patient providing and/or coordinating discharge services: Less than 30 minutes Status at Discharge Functional status at discharge: uses cane/walker Overall status at discharge: patient is progressing back to baseline Mental Status: mental status grossly normal Speech and Movement: speech and movement normal Mood: congruent mood Affect: normal affect Exam Psych Mental Status: mental status grossly normal Speech and Movement: speech and movement normal Mood: congruent mood Affect: normal affect PFSH All Active Problems Osteoarthritis of left knee (Chronic) Osteoarthritis of right knee (Chronic) SVT (supraventricular tachycardia) (Chronic) Hypertension (Chronic) Infection of total right knee replacement (Acute) Acute postoperative anemia due to expected blood loss (Acute) Abscess of right thigh (Acute) Medical History Atherosclerotic heart disease of [place] coronary artery without angina pectoris Coronary artery disease PCI with FÉLIX to RCA 07/19/2020 [facility] Erectile dysfunction Family history of ischemic heart disease GERD (gastroesophageal reflux disease) Shortness of breath Surgical History (Updated 05/03/21 @ 12:56 by Rajni Bentley) History of coronary artery stent placement RCA -- 07/19/2020 History of heart artery stent 07/2020 History of total knee arthroplasty bilateral Hx of elbow surgery Right lateral epicondyle debridement 2009 Family History Mother Scleroderma Maternal Grandfather Myocardial infarction Uncle Myocardial infarction Uncle Myocardial infarction Social History Smoking/Tobacco Use Status: Never Smoking risk assessment performed?: Yes Alcohol Intake: current Alcohol Intake frequency: 0-2 drinks per day Alcohol type: beer and hard liquor Drug use: Never Substance use type: does not use Details: alcohol: march Household members: spouse current occupation: travels for work to [facility] [employer] Current gender identity: male Do you feel safe at home: Yes Do you feel safe in your relationship?: Yes
[2021-05-03 12:51] LABS: Source Nasal/Nares
[2021-05-03 13:00] VITALS: BP 111/77; PULSE 89; RESP 16; TEMP 36.6; O2SAT 100
--- NOTE | 2021-05-03 13:37 | W.ANESPRE ---
General Info Date of Service Date Performed: 05/03/21 Height: 6 ft Weight: 92.3 kg Body Mass Index (BMI): 27.6 Surgical Procedure: Operation Date: 05/03/21 17:25 Proposed Procedures Side Surgeon p Debridement and Irrigation Rt thigh abcess and knee infection Right Mendel Starr MD Meds Allergies and Home Medications Allergies Allergy/AdvReac Type Severity Reaction Status Date / Time No Known Allergies Allergy Verified 05/03/21 12:54 Home Medication Medication Instructions Recorded aspirin 81 mg PO DAILY 02/04/21 sildenafil 50 mg tablet 50 mg PO DAILY 02/17/21 amlodipine 5 mg tablet 5 mg PO DAILY 02/23/21 clopidogrel 75 mg tablet 75 mg PO DAILY #90 tab 02/23/21 metoprolol succinate 25 mg 50 mg PO DAILY tab 04/04/21 tablet,extended release 24 hr docusate sodium [Colace] 100 mg PO BID #30 cap 04/12/21 gabapentin 300 mg PO QHS #14 cap 04/12/21 acetaminophen 1,000 mg PO Q8H PRN #90 tab 04/26/21 celecoxib [Celebrex] 200 mg PO BID #30 cap 04/26/21 pantoprazole 40 mg PO DAILY #30 tab 04/26/21 rifampin 300 mg PO BID #60 cap 04/26/21 oxycodone 10 mg tablet 10 mg PO Q4H PRN #30 tab MDD 40mg 05/01/21 Current Visit Medications: Current Medications Generic Name Dose Route Start Last Admin Trade Name Freq PRN Reason Stop Dose Admin Acetaminophen 1,000 mg 05/03/21 06:00 Acetaminophen 500 Mg Tab PO 05/03/21 18:00 PREOP MICHAELA Acetaminophen 1,000 mg 05/03/21 14:00 Acetaminophen 500 Mg Tab PO TID MICHAELA Celecoxib 400 mg 05/03/21 06:00 Celecoxib 200 Mg Cap PO 05/03/21 18:00 PREOP MICHAELA Celecoxib 200 mg 05/03/21 20:00 Celecoxib 200 Mg Cap PO BID MICHAELA Docusate Sodium 100 mg 05/03/21 11:59 Docusate Sodium 100 Mg Cap PO BID PRN PRN Constipation Gabapentin 300 mg 05/03/21 06:00 Gabapentin 300 Mg Cap PO 05/03/21 18:00 PREOP MICHAELA Gabapentin 300 mg 05/03/21 22:00 Gabapentin 300 Mg Cap PO HS MICHAELA Hydromorphone HCl 0.5 mg 05/03/21 11:59 Hydromorphone 2 Mg/Ml Vial IVP Q2H PRN PRN Tranexamic Acid 1,000 mg/ 60 mls @ 360 mls/hr 05/03/21 06:00 Sodium Chloride IVPB 05/03/21 18:00 PREOP MICHAELA Ringer's Solution 1,000 mls @ 80 mls/hr 05/03/21 06:00 IV 06/02/21 23:59 INFUSION MICHAELA Cefazolin Sodium/Dextrose 2 gm in 50 mls @ 100 mls/hr 05/03/21 06:00 Ancef Duplex IVPB 06/02/21 23:59 PREOP [facility] IV Miscellaneous Supplies 1 each 05/03/21 06:00 Iv Access IV 06/02/21 23:59 DIRECTED MICHAELA Oxycodone HCl 0 mg 05/03/21 11:59 Oxycodone 5 Mg Tab PO Q3H PRN PRN Pain Pantoprazole Sodium 40 mg 05/04/21 07:30 Pantoprazole 40 Mg Tabcr PO DAILY@0730 MICHAELA Polyethylene Glycol 17 gm 05/03/21 11:59 Polyethylene Glycol 3350 17 Gm Packet PO BID PRN PRN Constipation Sodium Chloride 0 ml 05/03/21 06:00 Normal Saline Flush 10 Ml Syr IV 06/02/21 23:59 PRN PRN Sodium Chloride 0 ml 05/03/21 06:00 Normal Saline 10 Ml Vial IJ 06/02/21 23:59 DIRECTED PRN Sterile Water 0 ml 05/03/21 06:00 Water,Injection,Sterile 10 Ml Vial IJ 06/02/21 23:59 DIRECTED PRN PFSH Active Problems Active Problems: Problem Status Onset Code Osteoarthritis of left knee M17.12 Osteoarthritis of right knee M17.11 SVT (supraventricular tachycardia) I47.1 Hypertension I10 Infection of total right knee replacement T84.53XA Acute postoperative anemia due to expected blood loss D62 Abscess of right thigh L02.415 Medical History Medical History Atherosclerotic heart disease of [place] coronary artery without angina pectoris Coronary artery disease PCI with FÉLIX to RCA 07/19/2020 [facility] Erectile dysfunction Family history of ischemic heart disease GERD (gastroesophageal reflux disease) Shortness of breath Medical History Comments:: Benito ate 05/03/21 @ 0800: Banana Surgical History Surgical History (Updated 05/03/21 @ 12:56 by Rajni Bentley) History of coronary artery stent placement RCA -- 07/19/2020 History of heart artery stent 07/2020 History of total knee arthroplasty bilateral Hx of elbow surgery Right lateral epicondyle debridement 2010 Tobacco Smoking/Tobacco Use Status: Never Alcohol Alcohol Intake: current Alcohol intake frequency: 0-2 drinks per day Alcohol type: beer and hard liquor Substance Use Substance use: Never Substance use type: does not use Details: alcohol: march Vital Signs and Lab Results Vital Signs Most Recent Vital Signs in EMR: Most Recent Vital Signs Temp Pulse Resp BP Pulse Ox 36.6 C 89 16 111/77 100 05/03/21 13:00 05/03/21 13:00 05/03/21 13:00 05/03/21 13:00 05/03/21 13:00 Lab Results Blood Type / Crossmatch: Patient ABO/Rh O Positive 04/24/21 10:50 04/24/21 Antibody Screen NEGATIVE 04/24/21 10:50 04/24/21 Crossmatch See Detail 04/24/21 10:50 04/24/21 Complete Blood Count: White Blood Count 6.51 10^3/uL (4.4-10.8) 05/02/21 10:20 05/02/21 Red Blood Count 2.58 10^6/uL (4.36-5.78) L 05/02/21 10:20 05/02/21 Hemoglobin 8.0 g/dL (13.5-17.5) L 05/02/21 10:20 05/02/21 Hematocrit 25.1 % (40.0-50.0) L 05/02/21 10:20 05/02/21 Platelet Count 523 10^3/uL (130-400) H 05/02/21 10:20 05/02/21 Venous Blood Lactate 1.2 mmol/L (0.6-1.4) 04/24/21 10:22 04/24/21 Complete Metabolic Panel: Sodium Level 134 mmol/L (136-145) L 05/02/21 10:20 05/02/21 Potassium Level 4.3 mmol/L (3.5-5.1) 05/02/21 10:20 05/02/21 Chloride Level 101 mmol/L (98-107) 05/02/21 10:20 05/02/21 Carbon Dioxide Level 24.0 mmol/L (21.0-32.0) 05/02/21 10:20 05/02/21 Blood Urea Nitrogen 8 mg/dL (7-18) 05/02/21 10:20 05/02/21 Creatinine 0.7 mg/dL (0.70-1.30) 05/02/21 10:20 05/02/21 Estimated GFR/1.73 m2 >= 60.00 (mL/min/1.73m2) 05/02/21 10:20 05/02/21 Calcium Level 8.6 mg/dL (8.5-10.1) 05/02/21 10:20 05/02/21 Albumin 3.1 g/dL (3.4-5.0) L 04/24/21 10:22 04/24/21 Glucose Level 106 mg/dL (74-106) 05/02/21 10:20 05/02/21 C-Reactive Protein 8.64 mg/dL (0.0-0.3) H 05/02/21 10:20 05/02/21 Liver Function Panel: Alanine Aminotransferase (ALT/SGPT) 25 U/L (16-63) 04/24/21 10:22 04/24/21 Aspartate Amino Transf (AST/SGOT) 18 U/L (15-37) 04/24/21 10:22 04/24/21 Coagulation Panel: No Data to Display Cardiac Panel: No Data to Display Arterial Blood Gas: No Data to Display Venous Blood Gas: No Data to Display Pancreas Panel: No Data to Display Thyroid Panel: No Data to Display Infectious Disease: Coronavirus (COVID-19)(PCR) Negative (Negative) 05/03/21 12:40 05/03/21 Coronavirus 2019 Source Nasal/Nares 05/03/21 12:40 05/03/21 Blood Cultures: No Data to Display Toxicology Panel: No Data to Display Imaging and Studies Imaging and Studies Study information below may be from another EMR and interpreted by another provider. Please see original notes in EMR for more complete details. Stress Test Summary: 06/28/2020: EF 55%, Perfusion abnormal, Severe reversible defect in inferior and septal regions. [place] [facility] [place] 63%, Mild TR. Cardiac Catheterization Summary: 07/19/2020: [place]: Mild to moderate multivessel disease. RCA FÉLIX stent placed. Anesthesia Assessment and Plan Anesthesia History Personal History: No History of Anesthesia Complications Family History: No Family History of Anesthesia Complications Exercise Tolerance Exercise Tolerance: Metabolic Equivalents>4 Cardiac & Pulmonary Exam Cardiac Exam: Normal S1/S2 Heart Sounds Pulmonary Exam: Clear Bilateral Breath Sounds Implantable Cardiac Device Does patient have a Pacemaker or an ICD?: No Airway Exam Known Difficult Airway: No Mallampati Class: 1 Mouth Opening: Normal (> 3cm) Thyromental Distance: Greater than 3 cm Neck Range of Motion: Full ROM Neck Circumference: Normal Teeth Condition: Normal Dentition Airway Comments: Top front teeth chipped ASA Classification ASA Score: ASA 3 Emergency Case?: No NPO Status NPO Status: NPO Clears >2 hours, Solids >8 hours Anesthesia Plan Resuscitation Status: Full Code Anesthesia Technique: General Anesthesia Airway Planned: Endotracheal Tube Monitors Used: Standard Monitors
[2021-05-03] MEDS: Lactated Ringers 1,000 ML 80 ML IV (13:38)
[2021-05-03] MEDS: Gabapentin 300 MG CAP PO (13:38)
[2021-05-03] MEDS: Acetaminophen 500 MG TAB 1000 MG PO (13:38)
[2021-05-03 13:42] LABS: COVID-19 PCR Negative (Negative)
[2021-05-03 14:07] VITALS: BMI 27.6
[2021-05-03] MEDS: ceFAZolin 2 GM/50 ML BAG IVPB (15:40)
[2021-05-03] MEDS: Normal Saline 50 ML (16:16)
[2021-05-03] MEDS: Bupivacaine 0.25% Pres-Free 30 ML VIAL (16:16)
[2021-05-03 16:45] VITALS: BP 129/72; PULSE 83; RESP 15; TEMP 36.2; O2SAT 96
[2021-05-03 16:50] VITALS: BP 127/72; PULSE 89; RESP 11; TEMP 36.2; O2SAT 97
[2021-05-03 16:55] VITALS: BP 135/81; PULSE 83; RESP 13; TEMP 36.2; O2SAT 94
[2021-05-03 17:00] VITALS: BP 121/86; PULSE 88; RESP 19; TEMP 36.2; O2SAT 92
--- NOTE | 2021-05-03 17:11 | W.ANESPOSTOP ---
Postoperative Evaluation Date, Time and Location Date Performed: 05/03/21 Time Performed: 17:11 Patient Location: PACU Vital Signs Most Recent Imported Vital Signs: Most Recent Vital Signs Temp Pulse Resp BP Pulse Ox 36.2 C L 88 19 121/86 92 05/03/21 17:00 05/03/21 17:00 05/03/21 17:00 05/03/21 17:00 05/03/21 17:00 Pain Score Most Recent Pain Score: Most Recent Pain Score Pain Level 0 05/03/21 17:00 Assessment Mental Status: Awake (Alert & Oriented to Patient Baseline) Airway and Respiratory Function: Patent airway with normal (patient baseline) respiratory exam Cardiovascular Function: Hemodynamically Stable Hydration Status: Adequately Hydrated Nausea & Vomiting: No Nausea or Vomiting Pain: Pain is Moderate or Severe Postoperative Pain Management: Pain being addressed with medication Peripheral Nerve Block: Patient did not receive a nerve block
[2021-05-03] MEDS: oxyCODONE 5 MG TAB PO (17:33)
[2021-05-03] MEDS: Normal Saline Flush 10 ML SYR IV (17:36)
[2021-05-03] MEDS: Heparin 500 UNITS/5 ML SYRINGE IVP (17:37)
[2021-05-03 17:50] VITALS: BP 138/99; PULSE 86; RESP 16; TEMP 36.4; O2SAT 98
--- NOTE | 2021-05-04 13:54 | ROE_ITS ---
Date of service: 05/03/21 Time of Service: 16:39 Operative Note Operative Note DATE OF PROCEDURE: 05/03/21 PRE-OP DIAGNOSIS: Right Thigh Abscess and Prosthetic Knee Infection POST-OP DIAGNOSIS: same PROCEDURE: Irrigation and Debridement of Right Thigh Abscess and Knee Infection SURGEON: Mendel Starr ADMINISTRATIVE ASSISTANT DATA ENTRY: Marni Ayala ANESTHESIA TYPE: General LMA/ETT Refer to Anesthesia Record ESTIMATED BLOOD LOSS: 200 PATHOLOGY: other (3 aerobic culture specimens) TOURNIQUET TIME: 0 COMPLICATIONS: None Patient was transported to: PACU Patient's condition: stable Indications: Ed is a 56-year-old who unfortunately developed a postoperative periprosthetic infection of the right knee. He had initial irrigation debridement synovectomy and polyethylene exchange and was doing well until he started having increasing right anterior thigh pain. CT scan showed what appeared to be a fluid collection or questionable abscess over the anterior thigh and therefore I offered repeat irrigation debridement of the anterior thigh as well as inspection of the right knee. I reviewed the risk of the procedure with him to include continued infection, bleeding, weakness, pain, stiffness, damage to nerves and vessels, damage to muscle and tendons. Despite this, he elected to proceed. Findings: There is some fluid collection along with some necrotic fat tissue seen over the anterior aspect of the thigh. There is a very small defect in the superomedial aspect of patella arthrotomy repair. No gross purulence. This area was grossly washed out and a Betadine wash was also performed. Procedure Description: Ed was greeted in the preoperative holding area where the correct side was identified and marked. The consent was reviewed with the patient and signed. The history and physical was updated. All questions were answered. Preoperative mediacations were administered: Acetaminophen 1000mg, Celebrex 400mg, and Gabapentin 300mg. Ed was taken back to the operating room. A general anesthestic was ad ministered. The patient was placed into the supine position on the operating room table. Posts were placed for positioning during the procedure. All bony prominences were well padded. Prophylactic antibiotics in the form of Cefazolin were administered. The left leg was then prepped with Chloraprep and draped in a standard fashion with impervious stockinette. A second prep with Chloraprep was performed prior to application of Iodine impregnated skin protection. A timeout to confirm correct identity, side and site, procedure, allergies, anesthesia, and medical concerns was performed. With the knee in some flexion, a midline incision was made overlying the knee utilizing the previous incision. Full thickness skin flaps were raised once the extensor mechanism was encountered. These were raised medially and laterally. There was a small defect seen over the superomedial aspect of the patella with diastases of the arthrotomy repair of about 1 to 2 mm. Any bleeding was controlled with electrocautery. This incision was then taken proximally whre I encountered a collection of mixture of soft tissue and fluid that appeared to be necrotic or infected there is still no gross purulence. Given the firmness of his muscle in this area I also incised the fascia with some no muscle protruding through and no sign of abscess within the muscle itself. I also placed a garza elevator from within the knee and advanced up the knee underneath the musculature of the thigh once again discovered no signs of deep abscess. 3 aerobic cultures were sent, 2 from the proximal aspect of the thigh and then one from the knee. I opened up the area of arthrotomy diastases by 3 cm in the direction. Once again, within the knee there was no gross purulence. There was a mixture of fluid and soft tissue which are removed with a rongeur. I did not open up the entire knee since the majority of the arthrotomy and healed. I then irrigated the knee with intra-articular extra-articular with 3 L normal saline. After that I performed a dilute Betadine wash with 17.5 mL of Betadine was in 500 cc normal saline. This was washed to the knee and allowed to sit for 3 minutes. This was then reirrigated with another 1 L normal saline. The periosteal and capsular tissues were then systematically injected with a periarticular cocktail consisting of 50cc 0.25% Marcaine, 30mg Ketorolac, 20cc of Exparal. Using #1 Antimicrobial PDS, the arthrotomy and quadriceps split was repaired. This was done in interrupted fashion using [id number] and simple sutures. Deep tissues were then reapproximated with 0 PDS and 2-0 PDS. The skin was closed with grant. A jill dressing was applied along with a [id number] NIKKI wrap. A CryoCuff was applied. Ed was transferred to the hospital stretcher without difficulty an suffering no apparent complication. Ed has a gaurded prognosis. Asprin and Plavix will be used for DVT prophylaxis. He will continue Ceftriaxone 2g daily and Rifampin 300mg BID for infection treatment.
== END 2021-05-03 18:12 | disposition home or self-care (01) ==
LOC: SUR 12:27
PROVIDERS: Visit Provider Student in an Organized Health Care Education/Training Program
PROC: 0SPC09Z Removal of Liner from Right Knee Joint, Open Approach (ICD-10-PCS; CPT 27486; principal; 2021-05-03 17:15)
DX: T84.53XA Infection and inflammatory reaction due to internal right knee prosthesis, initial encounter (principal); Z20.822 Contact with and (suspected) exposure to COVID-19; I47.1 Supraventricular tachycardia; I10 Essential (primary) hypertension
CPT/HCPCS: 27486; 87635; 87070; 87205; J0690; J2250; J2405; J3010

== ENCOUNTER 2021-06-06 11:29 | Outpatient (CLI) | payer BC, SELFPAY ==
--- NOTE | 2021-06-06 11:15 | DI.RAD_ITS ---
Exam(s) XR KNEE LT 1V XR STANDING ALIGNMENT XR KNEE RT 1V EXAM: XR STANDING ALIGNMENT and bilateral knee 1 V CLINICAL HISTORY: f/u bilateral TKA. TECHNIQUE: 2D digital imaging was performed. COMPARISON: CR XR KNEE RT 1V from 02/03/2021 CR XR STANDING ALIGNMENT from 02/03/2021 CR XR KNEE LT 1V from 02/03/2021 CR XR KNEE RT 2V AP,LAT from 04/24/2021 FINDINGS: The hips are well maintained.There are bilateral total knee replacements. No suspicious lucencies ar e seen in or about the orthopedic hardware to suggest loosening or infection.There is soft tissue swe lling about the knees bilaterally.The ankles are well maintained.Atherosclerosis is present. The lef t lower extremity measures 100.7 cm. The right lower extremity measures 98.7 cm. IMPRESSION: Bilateral total knee replacements. DATA REPOSITORY: RADIATION DOSE DELIVERED:
== END 2021-06-06 11:30 | disposition home or self-care (01) ==
LOC: DIORS 11:29
PROVIDERS: PCP Family Medicine; Referring Provider Family Medicine; Visit Provider Student in an Organized Health Care Education/Training Program
DX: M17.0 Bilateral primary osteoarthritis of knee (principal); T84.53XA Infection and inflammatory reaction due to internal right knee prosthesis, initial encounter; Z96.653 Presence of artificial knee joint, bilateral; M79.89 Other specified soft tissue disorders; M21.70 Unequal limb length (acquired), unspecified site; Z47.1 Aftercare following joint replacement surgery
CPT/HCPCS: 73560; 77073

== ENCOUNTER 2021-06-06 12:15 | Outpatient (RCR) | payer BC, SELFPAY ==
[2021-05-30] MEDS: Normal Saline Flush 10 ML SYR IVP (12:30)
[2021-05-30 12:49] LABS: HCT 29.8 % (40.0-50.0); HGB 9.1 g/dL (13.5-17.5); MCH 28.6 pg (27.0-33.0); MCHC 30.5 % (32.0-36.0); MCV 93.7 fL (80-95); MPV 9.7 fL (8.0-11.0); Platelet Count 385 10^3/uL (130-400); RBC 3.18 10^6/uL (4.36-5.78); RDW 14.3 % (11.8-14.1); RDW-SD 49.5 fL; WBC 5.85 10^3/uL (4.4-10.8)
[2021-05-30 12:52] LABS: ESR 78 mm/hr (0-20)
[2021-05-30 12:59] LABS: BUN 20 mg/dL (7-18); CREATININE 0.9 mg/dL (0.70-1.30); Calcium 9.5 mg/dL (8.5-10.1); Chloride 103 mmol/L (98-107); Glucose 87 mg/dL (74-106); Potassium 4.4 mmol/L (3.5-5.1); Sodium 137 mmol/L (136-145)
[2021-05-31 23:00] LABS: ALT 14 U/L (16-63); AST 14 U/L (15-37); Albumin 3.5 g/dL (3.4-5.0); Alkaline Phosphatase 82 U/L (46-116); Bilirubin, Direct 0.1 mg/dL (0.0-0.2); Bilirubin, Total 0.2 mg/dL (0.2-1.0); Total Protein 8.3 g/dL (6.4-8.2)
[2021-06-06] MEDS: Normal Saline Flush 10 ML SYR IVP (12:44)
[2021-06-06 13:18] LABS: HCT 31.6 % (40.0-50.0); HGB 9.8 g/dL (13.5-17.5); MCH 28.6 pg (27.0-33.0); MCV 92.1 fL (80-95); MPV 9.7 fL (8.0-11.0); Platelet Count 359 10^3/uL (130-400); RBC 3.43 10^6/uL (4.36-5.78); RDW 14.6 % (11.8-14.1); RDW-SD 48.9 fL; WBC 5.16 10^3/uL (4.4-10.8)
[2021-06-06 13:30] LABS: ESR 60 mm/hr (0-20)
[2021-06-06 13:31] LABS: C-Reactive Protein 0.91 mg/dL (0.0-0.3)
== END 2021-06-12 23:59 | disposition home or self-care (01) ==
LOC: INF 12:15
PROVIDERS: Visit Provider Student in an Organized Health Care Education/Training Program
DX: T84.53XA Infection and inflammatory reaction due to internal right knee prosthesis, initial encounter (principal); Z45.02 Encounter for adjustment and management of automatic implantable cardiac defibrillator
CPT/HCPCS: 36592; 80048; 80076; 85027; 85652; 86140

== ENCOUNTER 2021-07-03 19:58 | Outpatient (CLI) | payer BC, SELFPAY ==
[2021-07-03 10:50] LABS: HCT 42.7 % (40.0-50.0); HGB 13.6 g/dL (13.5-17.5); MCH 30.8 pg (27.0-33.0); MCHC 31.9 % (32.0-36.0); MCV 96.8 fL (80-95); MPV 9.5 fL (8.0-11.0); Platelet Count 229 10^3/uL (130-400); RBC 4.41 10^6/uL (4.36-5.78); RDW 19.3 % (11.8-14.1); RDW-SD 68.8 fL; WBC 4.36 10^3/uL (4.4-10.8)
[2021-07-03 10:52] LABS: ESR 17 mm/hr (0-20)
[2021-07-03 12:56] LABS: C-Reactive Protein 0.86 mg/dL (0.0-0.3)
== END 2021-07-03 19:59 | disposition home or self-care (01) ==
LOC: LBO 20:00
PROVIDERS: PCP Family Medicine; Visit Provider Student in an Organized Health Care Education/Training Program
DX: T84.53XA Infection and inflammatory reaction due to internal right knee prosthesis, initial encounter (principal)
CPT/HCPCS: 36415; 85027; 85652; 86140

== ENCOUNTER 2021-07-19 11:45 | Outpatient (CLI) | payer BC, SELFPAY ==
--- NOTE | 2021-07-19 10:00 | DI.RAD_ITS ---
Exam(s) XR SHOULDER LT COMPLETE 2+V EXAM: XR SHOULDER LT COMPLETE 2+V CLINICAL HISTORY: shoulder pain TECHNIQUE: COMPARISON: No exams were available for comparison FINDINGS: Two views were obtained. The cartilaginous joint space of the glenohumeral joint appears fairly well maintained. There are mild marginal osteophytes of the glenoid. Humeral head appears intact. Ther e are moderate hypertrophic degenerative changes at the acromioclavicular joint. IMPRESSION: RADIATION DOSE DELIVERED: Total DLP
--- NOTE | 2021-07-19 10:00 | DI.RAD_ITS ---
Exam(s) XR SHOULDER RT COMPLETE 2+V EXAM: XR SHOULDER RT COMPLETE 2+V CLINICAL HISTORY: shoulder pain TECHNIQUE: COMPARISON: CR XR SHOULDER LT COMPLETE 2+V from 07/19/2021 FINDINGS: Two views were obtained. There is probable mild thinning of the glenohumeral cartilaginous joint spa ce. There are mild marginal osteophytes of the glenoid. Minimal marginal osteophytes of the humeral head also noted. There are mild hypertrophic degenerative changes of the AC joint. IMPRESSION: RADIATION DOSE DELIVERED: Total DLP
== END 2021-07-19 11:46 | disposition home or self-care (01) ==
LOC: DIORS 11:45
PROVIDERS: PCP Family Medicine; Visit Provider Physician Assistant
DX: M25.511 Pain in right shoulder (principal); M25.512 Pain in left shoulder; M19.011 Primary osteoarthritis, right shoulder; M19.012 Primary osteoarthritis, left shoulder
CPT/HCPCS: 73030

== ENCOUNTER 2021-08-02 00:42 | Outpatient (CLI) | payer BC, OTHER, SELFPAY ==
--- NOTE | 2021-08-02 06:30 | DI.MRI_ITS ---
Exam(s) MR UPPER JOINT RT WO EXAM: MR UPPER JOINT RT WO CLINICAL HISTORY: RT SHOULDER PAIN,M25.511,BURSITIS,RT ROTATOR CUFF TEAR,M75.101,M75.51 TECHNIQUE: Multiplanar multisequence MRI of the shoulder was performed. COMPARISON: CR XR SHOULDER RT COMPLETE 2+V from 07/19/2021 FINDINGS: Plain soon of 07/19/2021 reviewed MARROW:There is no evidence of fracture, Hill-Sachs deformity, nor ominous osseous lesions. No eviden ce of obvious bony Bankart lesion. ROTATOR CUFF MECHANISM: AC JOINT/ACROMIUM: There is significant degenerative changes in the AC joint with downgoing osteophyt e on the clavicular side causing impingement upon the supraspinatus.. There is no evidence of os acromiale. Supraspinatus: There is significant signal abnormality in the supraspinatus tendon at level just abov e the greater tuberosity. This measures 7 x 4 by 6 8 millimeters and consistent with small area of f ull-thickness tearing. There is no retraction of the musculotendinous junction. Infraspinatus: There is thickening of the insertional tendon consistent with tendinosis but no full-t hickness tear. There are small degenerative subarticular cysts in the humeral head at this insertion al level of the infraspinatus. No muscle atrophy. Teres Minor: Intact. No evidence of tear nor muscle atrophy. Subscapularis/anterior cuff: There is significant signal abnormality within the multipennate insertio nal fibers of the anterior cuff-subscapularis. Consistent with area of full-thickness and partial-th ickness tearing. There is no abnormal intraosseous signal evident in the lesser tuberosity nor withi n the adjacent coracoid process. BICEPS TENDON: There is split tearing of the biceps tendon within the intertubercular groove. The in tra-articular aspect of the tendon appears partially torn but not detached from the anterosuperior la guillermina LABRUM: There is no evidence of abnormal signal in the superior labrum posterior to the biceps attach ment site. Mild increased signal in the anterior-superior labrum evident. Posterior labrum is intac t inferior glenohumeral ligament appears intact GLENOHUMERAL JOINT: No joint effusion nor obvious loose intra-articular bodies. No chondral defects. No osteophytes. No evidence of capsular tear. The inferior glenohumeral ligament is intact. QUADRILATERAL SPACE: No evidence of mass in the region of the axillary nerve and dorsal circumflex hu meral vessels. Visualized triceps muscle at this level appears unremarkable. IMPRESSION: 1. Small area of full-thickness tearing in the supraspinatus tendon just above the greater tuberosity . No retraction musculotendinous junction. 2. Adenopathy-type thickening of the infraspinatus without a full-thickness tear of the infraspinatus . 3. Significant signal abnormality consistent with tearing also evident in the anterior cuff-subscapul juvenal. 4. Split tearing of the biceps tendon within the intertubercular groove. Also some signal abnormali ty new within the intra-articular aspect of the biceps tendon. Biceps tendon does not appear to be d etached from the anterosuperior labrum. There is no evidence of SLAP tear. However, there is some i ncreased signal seen within the anterosuperior labrum. Mid-lower aspect of the anterior labrum also exhibits some degenerative signal. Inferior and posterior labrum are unremarkable. DATA REPOSITORY:
== END 2021-08-02 01:02 ==
PROVIDERS: PCP Family Medicine; Visit Provider Student in an Organized Health Care Education/Training Program
DX: M25.511 Pain in right shoulder (principal); M75.101 Unspecified rotator cuff tear or rupture of right shoulder, not specified as traumatic; M75.51 Bursitis of right shoulder; S46.211A Strain of muscle, fascia and tendon of other parts of biceps, right arm, initial encounter; X58.XXXA Exposure to other specified factors, initial encounter
CPT/HCPCS: 73221

== ENCOUNTER 2021-08-16 01:59 | Outpatient (CLI) | payer BC, OTHER, SELFPAY ==
[2021-08-16 12:35] LABS: Source Nasal/Nares
[2021-08-16 17:33] LABS: COVID-19 PCR Negative (Negative)
== END 2021-08-16 02:00 | disposition home or self-care (01) ==
LOC: LBO 01:59
PROVIDERS: PCP Family Medicine; Visit Provider Student in an Organized Health Care Education/Training Program
DX: Z20.822 Contact with and (suspected) exposure to COVID-19 (principal); Z01.818 Encounter for other preprocedural examination
CPT/HCPCS: 87635

== ENCOUNTER 2021-08-18 10:56 | Day surgery (SDC) | payer BC, OTHER, SELFPAY ==
[2021-08-18] VITALS (8 sets, daily range): BP systolic 99–142; BP diastolic 59–89; PULSE 63–81; RESP 13–24; TEMP 36.3–37.2; O2SAT 95–99; BMI 27.1
--- NOTE | 2021-08-18 08:12 | W.ANESPRE ---
General Info Date of Service Date Performed: 08/18/21 Height: 6 ft Weight: 90.718 kg Body Mass Index (BMI): 27.1 Surgical Procedure: Operation Date: 08/18/21 12:10 Proposed Procedure Side Surgeon p Shoulder Rotator Cuff Arthroscopic w/Extensive Debridement, Biceps Tenodesis, Subacromial Decompression Right Chandrakant Coon MD Meds Allergies and Home Medications Allergies Allergy/AdvReac Type Severity Reaction Status Date / Time No Known Allergies Allergy Verified 08/18/21 11:42 Home Medication Medication Instructions Recorded aspirin 81 mg tablet,delayed 81 mg PO DAILY 02/04/21 release amlodipine 5 mg tablet 5 mg PO DAILY 02/23/21 acetaminophen 500 mg tablet 1,000 mg PO Q8H PRN #90 tab 04/26/21 pantoprazole 40 mg tablet,delayed 40 mg PO DAILY #30 tab 04/26/21 release rifampin 300 mg capsule 300 mg PO BID #60 cap 04/26/21 celecoxib 200 mg capsule (Celebrex) 200 mg PO BID #60 cap 05/03/21 levofloxacin 750 mg tablet 750 mg PO DAILY #30 tab 06/06/21 atorvastatin 40 mg tablet 40 mg PO DAILY 07/25/21 metoprolol succinate 25 mg 50 mg PO DAILY #90 tab 07/25/21 tablet,extended release 24 hr Current Visit Medications: Current Medications Generic Name Dose Route Start Last Admin Trade Name Freq PRN Reason Stop Dose Admin Ringer's Solution 1,000 mls @ 100 mls/hr 08/18/21 06:00 IV 09/16/21 23:59 INFUSION [facility] Cefazolin Sodium/Dextrose 2 gm in 50 mls @ 100 mls/hr 08/18/21 06:00 Ancef Duplex IVPB 08/18/21 16:00 PREOP [facility] IV Miscellaneous Supplies 1 each 08/18/21 06:00 Iv Access IV 09/16/21 23:59 DIRECTED MICHAELA Naproxen 250 - 500 mg 08/18/21 07:34 Naproxen 500 Mg Tab PO BID PRN PRN Oxycodone HCl 5 - 10 mg 08/18/21 07:34 Oxycodone 5 Mg Tab PO Q4H PRN PRN Sodium Chloride 0 ml 08/18/21 06:00 Normal Saline Flush 10 Ml Syr IV 09/16/21 23:59 PRN PRN Sodium Chloride 0 ml 08/18/21 06:00 Normal Saline 10 Ml Vial IJ 09/16/21 23:59 DIRECTED PRN Sterile Water 0 ml 08/18/21 06:00 Water,Injection,Sterile 10 Ml Vial IJ 09/16/21 23:59 DIRECTED PRN PFSH Active Problems Active Problems: Problem Status Onset Code Tendonitis of long head of biceps brachii of right shoulder M75.21 Bursitis of right shoulder M75.51 Bursitis of left shoulder M75.52 Rotator cuff tear, left M75.102 Rotator cuff tear, right M75.101 Arthrofibrosis of total knee arthroplasty T84.82XA Osteoarthritis of left knee M17.12 Osteoarthritis of right knee M17.11 SVT (supraventricular tachycardia) I47.1 Hypertension I10 Infection of total right knee replacement T84.53XA Acute postoperative anemia due to expected blood loss D62 Abscess of right thigh L02.415 Medical History Medical History Alcohol use Angina pectoris Arthritis Atherosclerotic heart disease of [place] coronary artery without angina pectoris Coronary artery disease PCI with FÉLIX to RCA 07/19/2020 [facility] Degenerative disc disease Elevated liver enzymes Erectile dysfunction Essential tremor Family history of ischemic heart disease GERD (gastroesophageal reflux disease) Renal insufficiency Shortness of breath Surgical History Surgical History History of coronary artery stent placement RCA -- 07/19/2020 History of heart artery stent 07/2020 History of total knee arthroplasty (04/12/21) bilateral Hx of elbow surgery Right lateral epicondyle debridement 2009 Tobacco Smoking/Tobacco Use Status: Never Alcohol Alcohol Intake: current Alcohol intake frequency: a few times a week Alcohol type: beer and hard liquor Substance Use Substance use: Never Substance use type: does not use Vital Signs and Lab Results Vital Signs Most Recent Vital Signs in EMR: Temp Pulse Resp BP Pulse Ox 36.3 C L 75 18 136/89 99 08/18/21 11:45 08/18/21 11:45 08/18/21 11:45 08/18/21 11:45 08/18/21 11:45 Lab Results Blood Type / Crossmatch: No Data to Display Complete Blood Count: No Data to Display Complete Metabolic Panel: No Data to Display Liver Function Panel: No Data to Display Coagulation Panel: No Data to Display Cardiac Panel: No Data to Display Arterial Blood Gas: No Data to Display Venous Blood Gas: No Data to Display Pancreas Panel: No Data to Display Thyroid Panel: No Data to Display Infectious Disease: Coronavirus (COVID-19)(PCR) Negative (Negative) 08/16/21 10:37 08/16/21 Coronavirus 2019 Source Nasal/Nares 08/16/21 10:37 08/16/21 Blood Cultures: No Data to Display Toxicology Panel: No Data to Display Imaging and Studies Imaging and Studies Study information below may be from another EMR and interpreted by another provider. Please see original notes in EMR for more complete details. Stress Test Summary: 06/28/2020: EF 55%, Perfusion abnormal, Severe reversible defect in inferior and septal regions. [place] [facility] [place] 63%, Mild TR. Cardiac Catheterization Summary: 07/19/2020: [place]: Mild to moderate multivessel disease. RCA FÉLIX stent placed. Anesthesia Assessment and Plan Anesthesia History Personal History: No History of Anesthesia Complications Family History: No Family History of Anesthesia Complications Exercise Tolerance Exercise Tolerance: Metabolic Equivalents>4 Cardiac & Pulmonary Exam Cardiac Exam: Normal S1/S2 Heart Sounds Pulmonary Exam: Clear Bilateral Breath Sounds Implantable Cardiac Device Does patient have a Pacemaker or an ICD?: No Airway Exam Known Difficult Airway: No Mallampati Class: 2 Mouth Opening: Normal (> 3cm) Thyromental Distance: Greater than 3 cm Neck Range of Motion: Full ROM Neck Circumference: Normal Teeth Condition: Normal Dentition Airway Comments: Top front teeth chipped ASA Classification ASA Score: ASA 3 Emergency Case?: No NPO Status NPO Status: NPO Clears >2 hours, Solids >8 hours Anesthesia Plan Resuscitation Status: Full Code Anesthesia Technique: General Anesthesia Airway Planned: Endotracheal Tube Pain Management: Surgeon and patient request nerve block Monitors Used: Standard Monitors Preoperative Comments:: 56 yo male for shoulder arthroscopy. Sig PMHx: CAD (stent RCA 2020), HTN (metoprolol, amlodipine), never smoker, occ EtOH, GERD (pantoprazole). Previous Anes: LMA 4, mac 3 grade 2 a, easy mask.
[2021-08-18] MEDS: Lactated Ringers 1,000 ML 100 ML IV (11:40)
[2021-08-18 11:46] LABS: Abs Immature Grans 0.02 10^3/uL (0.0-0.06); Absolute Basophil Count 0.04 10^3/uL (0.0-0.2); Absolute Eosinophil Count 0.13 10^3/uL (0.0-0.7); Absolute Lymphocyte Count 1.53 10^3/uL (1.2-3.4); Absolute Monocyte Count 0.49 10^3/uL (0.1-0.8); Absolute Neutrophil Count 3.19 10^3/uL (1.2-6.7); Basophils % 0.7; Eosinophils % 2.4; HCT 42.6 % (40.0-50.0); HGB 14.3 g/dL (13.5-17.5); Immature Grans % 0.4; Lymphocytes % 28.3; MCH 31.5 pg (27.0-33.0); MCHC 33.6 % (32.0-36.0); MCV 93.8 fL (80-95); MPV 9.8 fL (8.0-11.0); Monocytes % 9.1; Neutrophils % 59.1; Nucleated RBC 0 %; Platelet Count 169 10^3/uL (130-400); RBC 4.54 10^6/uL (4.36-5.78); RDW-SD 58.7 fL
[2021-08-18 12:00] LABS: C-Reactive Protein 0.58 mg/dL (0.0-0.3)
[2021-08-18 12:01] LABS: ESR 31 mm/hr (0-20)
[2021-08-18] MEDS: ceFAZolin 2 GM/50 ML BAG IVPB (13:50)
--- NOTE | 2021-08-18 14:19 | W.ANESNERVE ---
Nerve Block Single Injection Procedure Date and Time Date Performed: 08/18/21 Procedure Start: 13:12 Location Where Procedure Performed Procedure Location: Operating Room Procedure Stop: 13:17 Reason Performed: Postoperative Analgesia Requesting Provider: Chandrakant Coon Timeout Performed Timeout Performed: Yes Monitoring Used ECG, Blood Pressure, SpO2, ETCO2 and See EMR for corresponding vital signs Sterility Sterility: Hand Hygiene, Surgical Cap, Surgical Mask, Sterile Gloves and Chlorhexidine Sedation Given During Procedure Sedation Given (Indicate Dose Given): Versed IV Dose:: 2mg Patient Mental Status Patient Mental Status: Awake Nerve Block 1st Nerve Block: Laterality: Right Block Type: Interscalene Needle / Catheter Used: 100mm SonoPlex II Local Anesthetic Bolus (Indicate Dose Given): None, Lidocaine used for local infiltration of skin, Injected in 3-5ml increments after negative blood aspiration, Bupivacaine 0.5% Dose:: 20mL and Exparel Dose:: 10mL Additives (Indicate Dose Given): None Ultrasound: Sterile probe cover and gel used Ultrasound Image Saved?: Yes Nerve Stimulator: Not Used Paresthesia: None Procedure Tolerated: No Complications Procedure Outcome: Successful Performed By: Bhavani Mcduffie
[2021-08-18] MEDS: EPINEPHrine 30 MG/30 ML VIAL (15:27)
--- NOTE | 2021-08-18 15:48 | W.ANESPOSTOP ---
Postoperative Evaluation Date, Time and Location Date Performed: 08/18/21 Time Performed: 15:48 Patient Location: PACU Vital Signs Most Recent Imported Vital Signs: Most Recent Vital Signs Temp Pulse Resp BP Pulse Ox 36.4 C L 67 13 102/64 96 08/18/21 15:30 08/18/21 15:45 08/18/21 15:45 08/18/21 15:45 08/18/21 15:45 Pain Score Most Recent Pain Score: Most Recent Pain Score Pain Level 0 08/18/21 15:45 Assessment Mental Status: Awake (Alert & Oriented to Patient Baseline) Airway and Respiratory Function: Patent airway with normal (patient baseline) respiratory exam Cardiovascular Function: Hemodynamically Stable Hydration Status: Adequately Hydrated Nausea & Vomiting: No Nausea or Vomiting Pain: Pt. Denies Any Pain Peripheral Nerve Block: Regional nerve block not resolved at time of post operative discharge
--- NOTE | 2021-08-18 15:51 | W.PM.DSUDISC ---
Discharge Plan Disposition Patient Disposition: HOME Condition: Stable Discharge Details Reason For Visit: Right shoulder surgery Attending Provider: Chandrakant Coon Primary Care Provider: Marcus Corona Home Meds and New Rx's Prescriptions: New oxycodone 5 mg tablet 5 - 10 mg PO Q4H MDD 30 mg PRN (Reason: moderate to severe pain) Qty: 18 0RF Continued amlodipine 5 mg tablet 5 mg PO DAILY 0RF atorvastatin 40 mg tablet 40 mg PO DAILY 0RF metoprolol succinate 25 mg tablet extended release 24 hr 50 mg PO DAILY Qty: 90 3RF levofloxacin 750 mg tablet 750 mg PO DAILY Qty: 30 3RF acetaminophen 500 mg tablet 1,000 mg PO Q8H PRN Qty: 90 0RF Rx Instructions: Take two tablets up to every 8 hours as needed for pain pantoprazole 40 mg Tablet,Delayed Release (Dr/Ec) 40 mg PO DAILY Qty: 30 2RF rifampin 300 mg capsule 300 mg PO BID Qty: 60 5RF celecoxib [Celebrex] 200 mg capsule 200 mg PO BID Qty: 60 2RF aspirin 81 mg Tablet,Delayed Release (Dr/Ec) 81 mg PO DAILY 0RF Discharge Instructions Additional Instructions: Surgery: Right shoulder arthroscopy with rotator cuff repair, biceps tenodesis, extensive debridement, and subacromial decompression. Activity: For 6 weeks, you should keep your arm at your side in a neutral position at all times except for physical therapy. Do not try to lift or raise your arm using your own muscles. You should use the sling whenever you are out of the house. You may have to adjust the abduction pillow or remove it for comfort. At home it is best to remove the sling and rest the arm on a pillow at your side or support the operative side with your other hand. You may allow the arm to dangle at your side. A physical therapy prescription will be sent electronically to begin in about 3 weeks. Prescriptions: Resume home dose aspirin 81 mg daily starting tomorrow and Celebrex 200 mg 1?2 times per day as needed for pain and swelling Oxycodone 5 mg take 1-2 every 4-6 hours as needed for severe pain You may use [id number] Tylenol (acetaminophen) as needed for mild pain. These pain medications may be taken all at once or in different combinations as needed. Also, recommend Colace (docusate) as a stool softener as surgery and pain medicine cause constipation. Dressings: Remove shoulder bandage after 3 days. Leave the sticky Steri-Strips in place until they fall off or remove them after you shower. Cover the incisions with Band-Aids or leave them open to air. You may shower after 5 days. Follow-up: 10-[address] Coon with an orthopedic physician dyer assistant and [address] Coon You may take off the leg compression stockings this evening at home. You may also leave them on a few days longer if you have a history of leg swelling or edema. Let us know right away if you develop any redness, drainage, fevers, chest pain, or trouble breathing. Do not drink alcohol or drive for at least 24 hours after anesthesia. Please call the office during business hours with any questions or concerns. Referrals: Chandrakant Coon MD [ [facility] STAFF PHYSICIAN] - Discharge Orders Discharge Orders: Discharge Order (Routine); Ordered 08/18/21 Ordered By: Chandrakant Coon DS: Diagnosis Discharge Diagnosis (1) Rotator cuff tear, right: Status: Acute (2) Tendonitis of long head of biceps brachii of right shoulder: Status: Acute (3) Bursitis of right shoulder: Status: Acute
[2021-08-18] MEDS: Naproxen 500 MG TAB PO (16:18)
--- NOTE | 2021-08-18 16:35 | W.PM.OP ---
Date of service: 08/18/21 Time of Service: 16:26 Operative Note Operative Note DATE OF PROCEDURE: 08/18/21 PRE-OP DIAGNOSIS: Right: 1. Rotator cuff tear 2. LHB tendinopathy 3. Bursitis POST-OP DIAGNOSIS: same PROCEDURE: Right: 1. Rotator cuff repair, CPT# 44113. This involved repair of the supraspinatus using anchor and sutures to reattach the rotator cuff back to the footprint of the greater tuberosity. 2. Arthroscopic biceps tenodesis, CPT# 12542. This involved arthroscopically suturing and reattaching the long head of the biceps tendon to the proximal humerus at the superior margin of the bicipital groove with a screw at the correct tension. 3. Extensive debridement, CPT# 51396. This involved using arthroscopic hand instruments, power instruments, and radiofrequency instruments to release the long head of the biceps tendon and debride areas of labral tearing, synovitis, and chondromalacia about the biceps groove and lesser tuberosity within the glenohumeral joint anteriorly, superiorly and posteriorly. 4. Subacromial decompression, CPT# 46552. This involved using arthroscopic power instruments and a radiofrequency wand to complete a bursectomy. The assistant restaurant general manager was medically required in order to help assist in techniques above, which require positioning the arm, holding the arthroscope, and manipulating multiple instruments and sutures at the same time. This cannot be done without the help of an experienced assistant restaurant general manager. SURGEON: Chandrakant Coon CUSTOMER SUPPORT EXECUTIVE: Lashon Rivera ANESTHESIA TYPE: General LMA/ETT and Primary Nerve Block Refer to Anesthesia Record ESTIMATED BLOOD LOSS: 30 PATHOLOGY: none sent COMPLICATIONS: None Patient was transported to: PACU Patient's condition: stable Implants: Arthrex: 4.75mm SwiveLocks x 2 Indications: The patient was diagnosed with the above conditions and appropriately indicated for surgical intervention. Please see complete medical record for details. Findings: Exam under anesthesia: Full range of motion with likely supra?physiologic external rotation nearly 90 degrees. No instability. 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 [facility] L disrupted. Biceps tendon with significant partial tearing fraying about the lesser tuberosity. Chronic bony changes about the bicipital groove and lesser tuberosity consistent with chronic rotator cuff injury. Degenerative type I SLAP tear. Moderate anterior superior and mild posterior synovitis. No articular sided supraspinatus or infraspinatus rotator cuff tear. Subacromial space: Moderate bursitis. No impinging subacromial bone spur. Partially concealed small high-grade supraspinatus rotator cuff tear. Largely intact and healthy superior rotator cuff. Procedure Description: In the operating room, general anesthesia was induced. Bilateral shoulders were examined. The patient was positioned in the beachchair position. All bony prominences were well-padded. Preoperative antibiotics were administered. The shoulder was prepped and draped in the usual sterile fashion. The correct patient, procedure, and side of the procedure were all verified prior to incision. Starting through the posterior portal a standard complete diagnostic arthroscopy was performed of the glenohumeral joint including inspection of the long head of the biceps, anterior and superior labrum, subscapularis tendon, supraspinatus and infraspinatus tendons, and axillary recess. The glenoid and humeral head cartilage as well as the posterior labrum were inspected from an anterior viewing portal. Significant findings and interventions noted above. The subscapularis was irreparable after attempts at freeing and mobilization there was very poor tissue remaining largely medial to the glenoid with no reasonable way to reapproximate to the ball of lesser tuberosity. The biceps tendon was then easily mobilized medially and the undersurface bone prepared to optimize bone tendon healing for tenodesis. The lesser tuberosity was also smoothed as part of the tuboplasty given the chronic subscapularis tear. An all-arthroscopic suprapectoral biceps tenodesis was performed through an anterior portal using a Loop N Tack method with a SutureTape FiberLink cinched around and through the tendon. The biceps was tenotomized from the labrum and fixated with a suture anchor at the superior margin of the bicipital groove. An additional SMC knot was tied using the sliding sutures from the suture anchor passed around the tenodesed biceps tendon providing additional compression and fixation. Starting through the posterior portal, the arthroscope was directed into the subacromial space. A lateral 50 yard line lateral portal was created. A combination of power instruments and a radiofrequency ablator were used to debride bursitis anteriorly, posteriorly, and laterally. The coracoacromial ligament was preserved. The bursectomy was completed viewing laterally and working from posteriorly and the rotator cuff was thoroughly inspected with findings noted above. The rotator cuff was thoroughly inspected. There was no obvious full-thickness tear but there was a region at the expected location correlating with the MRI of a high-grade partially concealed supraspinatus tear somewhat anteriorly laterally. Immobilizer and liberator was carefully used to expose the tear only as much as necessary and prepare the bone underneath for healing. A self retrieving suture passer was used to pass a FiberTape in an inverted horizontal mattress fashion spanning the tear at the appropriate level medially. A single lateral anchor was then punched in deployed securing the rotator cuff repair with excellent fixation strength and no undue tension. There were no additional sites of tear requiring repair. The shoulder was drained of arthroscopic fluid. All portal sites were copiously irrigated. These incisions were closed using 3-0 Monocryl in a buried fashion and then covered with Mastisol, Steri-Strips, Xeroform, dry gauze, and ABDs. The dressings were covered and secured with Medipore tape. The operative extremity was placed into a sling for immobilization. The patient awoke from anesthesia without complication and was transferred to the recovery room in a stable condition.
== END 2021-08-18 17:06 | disposition home or self-care (01) ==
LOC: SUR 10:56
PROVIDERS: PCP Family Medicine; Visit Provider Student in an Organized Health Care Education/Training Program
PROC: (CPT 29827; principal; 2021-08-18 12:00)
DX: M75.21 Bicipital tendinitis, right shoulder (principal); M75.101 Unspecified rotator cuff tear or rupture of right shoulder, not specified as traumatic; M75.51 Bursitis of right shoulder; I10 Essential (primary) hypertension; I25.10 Atherosclerotic heart disease of native coronary artery without angina pectoris
CPT/HCPCS: 29827; 29826; 29828; 29823; 36415; 76942; 85652; 85025; 86140; J0690; J1100; J1885; J2250; J2370; J2405; J2704

== ENCOUNTER 2021-11-17 08:59 | Outpatient (CLI) | payer BC, OTHER, SELFPAY ==
--- NOTE | 2021-11-17 08:45 | DI.RAD_ITS ---
Exam(s) XR KNEE RT 3V AP,LAT,SHLOMO XR KNEE LT 3V AP,LAT,SHLOMO EXAM: XR KNEE RT 3V AP,LAT,SHLOMO CLINICAL HISTORY: RIGHT KNEE PAIN. TECHNIQUE: 2D digital imaging was performed. Three views. COMPARISON: CR XR KNEE LT 1V from 06/06/2021 CR XR KNEE RT 1V from 06/06/2021 CR XR STANDING ALIGNMENT from 06/06/2021 CR XR KNEE LT 3V AP,LAT,SHLOMO from 11/17/2021 FINDINGS: There has been no change in the bilateral total knee prostheses or appearance of the surrounding bone . There is further coarsening of the calcifications superior to the patella bilaterally.. 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 DATA REPOSITORY: RADIATION DOSE DELIVERED:
== END 2021-11-17 09:00 | disposition home or self-care (01) ==
LOC: DIORS 08:59
PROVIDERS: PCP Family Medicine; Referring Provider Family Medicine; Visit Provider Student in an Organized Health Care Education/Training Program
DX: M25.562 Pain in left knee (principal); M25.561 Pain in right knee; Z96.653 Presence of artificial knee joint, bilateral
CPT/HCPCS: 73562